=== PATIENT | male | born 1935 | race Caucasian/White ===

== ENCOUNTER 2017-01-27 22:20 | Emergency (ER) | payer MEDICAID ==
[2017-01-27 22:37] VITALS: RESP 16
[2017-01-27 23:22] LABS: BASO % 0.4 % (0.0-2.0); EOS # 0.3 K/uL (0.0-0.7); EOS % 2.8 % (0.0-4.0); HEMATOCRIT 44.6 % (35.0-51.0); LYMPH # 2.6 K/uL (1.0-4.3); LYMPH % 23.1 % (20.0-40.0); MEAN CELL VOLUME 87.8 fl (80.0-94.0); MEAN PLATELET VOLUME 8.8 fl (7.2-11.7); MONO # 0.8 K/uL (0.0-0.8); NEUT # 7.5 K/uL (1.8-7.0); NEUT % 66.7 % (50.0-75.0); NRBC % 0.1 % (0.0-0.0); WHITE BLOOD COUNT 11.2 K/uL (4.8-10.8)
[2017-01-27 23:29] LABS: BLOOD UREA NITROGEN 13 mg/dl (9-20); CALCIUM 9.5 mg/dL (8.4-10.2); CARBON DIOXIDE 29 mmol/L (22-30); CHLORIDE 98 mmol/L (98-107); GFR AFRICAN-AMERICAN > 60; GLUCOSE,RANDOM 185 mg/dL (75-110); POTASSIUM 3.9 MMOL/L (3.6-5.0); SODIUM 140 mmol/l (132-148)
--- NOTE | 2017-01-28 00:34 | ED PDOC ---
Lower Extremity Pain/Injury Time Seen by Provider: 01/27/17 22:41 Chief Complaint (Nursing): Lower Extremity Problem/Injury Chief Complaint (Provider): right sided leg swelling History Per: Patient History/Exam Limitations: no limitations Onset/Duration Of Symptoms: Days Current Symptoms Are (Timing): Still Present Additional Complaint(s): 81yo male presents to the ED with c/o right sided leg swelling for 1 week. Patient reports he experiences occasional leg swelling that comes and goes, but this time it's persistent. Denies numbness, weakness of leg. No chest pain or SOB. Past Medical History Reviewed: Historical Data, Nursing Documentation, Vital Signs Vital Signs: Last Vital Signs Temp 98.2 F 01/27/17 22:33 Pulse 80 01/27/17 22:33 Resp 16 01/27/17 22:33 BP 157/87 H 01/27/17 22:33 Pulse Ox 94 L 01/27/17 22:33 - Medical History PMH: Arthritis, Diabetes (type II), HTN Denies: Chronic Kidney Disease - Surgical History Surgical History: No Surg Hx - Family History Family History: States: No Known Family Hx - Home Medications Home Medications: Ambulatory Orders Medication Instructions Recorded Acetaminophen/Hydrocodone Bi 1 tab PO QID PRN #14 tab 07/25/16 [Vicodin 300 mg-5 mg] Clindamycin [Cleocin] 300 mg PO TID 10 Days 01/28/17 - Allergies Allergies/Adverse Reactions: Allergies Allergy/AdvReac Type Severity Reaction Status Date / Time No Known Allergies Allergy Verified 01/27/17 22:33 Review of Systems ROS Statement: Except As Marked, All Systems Reviewed And Found Negative Cardiovascular: Positive for: Other (right sided leg swelling ). Negative for: Chest Pain Respiratory: Negative for: Shortness of Breath Neurological: Negative for: Weakness, Numbness Physical Exam - Reviewed Nursing Documentation Reviewed: Yes Vital Signs Reviewed: Yes - Physical Exam Appears: Positive for: Well, No Acute Distress Head Exam: Positive for: ATRAUMATIC, NORMAL INSPECTION, NORMOCEPHALIC Skin: Positive for: Normal Color, Warm, Dry Eye Exam: Positive for: Normal appearance, EOMI, PERRL ENT: Positive for: Normal ENT Inspection Neck: Positive for: Normal, Painless ROM, Supple Cardiovascular/Chest: Positive for: Regular Rate, Rhythm. Negative for: Murmur , Tachycardia Respiratory: Positive for: Normal Breath Sounds. Negative for: Wheezing, Respiratory Distress Gastrointestinal/Abdominal: Positive for: Normal Exam, Bowel Sounds, Soft. Negative for: Tenderness Back: Positive for: Normal Inspection. Negative for: L CVA Tenderness, R CVA Tenderness Extremity: Positive for: Normal ROM, Other (right leg edematous and erythematous and swollen, distal pulses intact ). Negative for: Deformity Neurologic/Psych: Positive for: Alert, Oriented. Negative for: Motor/Sensory Deficits - Laboratory Results Result Diagrams: 01/27/17 23:14 01/27/17 23:14 - ECG O2 Sat by Pulse Oximetry: 94 Medical Decision Making Medical Decision Makin: Impression: cellulitis vs. DVT Plan: Labs US duplex RLE reassess 0038: US duplex RLE impression: 1. No evidence of DVT within RIGHT lower extremity. 0107: Will prescribe antibiotics. Family members state they will check with Dr. Leiva in the morning to make sure patient is not allergic. They report patient has many allergies to antibiotics. Scribe Attestation: Documented by Rosalie Bruno acting as a scribe for Skip Fried MD. Provider Scribe Attestation: All medical record entries made by the Scribe were at my direction and personally dictated by me. I have reviewed the chart and agree that the record accurately reflects my personal performance of the history, physical exam, medical decision making, and the department course for this patient. I have also personally directed, reviewed, and agree with the discharge instructions and disposition. Disposition - Clinical Impression Clinical Impression: Cellulitis - Patient ED Disposition Is Patient to be Admitted: No - Disposition Referrals: Monika Leiva MD [Primary Care Provider] - Disposition: Routine/Home Disposition Time: 01:07 Condition: IMPROVED Prescriptions: Clindamycin [Cleocin] 300 mg PO TID 10 Days Instructions: Cellulitis (ED)
[2017-01-28 01:14] VITALS: BP 135/80; PULSE 75; TEMP 98.1
[2017-01-28 01:49] LABS: PARTIAL THROMBOPLASTIN TIME 26.8 SECONDS (23.3-32.5)
[2017-01-28 03:08] VITALS: O2SAT 94
--- NOTE | 2017-01-28 11:19 | US ---
Right lower extremity venous Doppler dated 01/28/2017. History: Right leg swelling. Rule out DVT. Duplex interrogation of the deep veins right lower extremity performed. No prior study available for comparison Findings: Visualized deep veins right lower extremity exhibit normal flow, compressibility augmentation without evidence of DVT. There is subcutaneous edema within soft tissues of the right ankle and right calf. Enlarged right inguinal lymph node measuring 5.5 x 4.1 x 1.5 cm. . Impression: No evidence of DVT within the visualized deep veins right lower extremity. Mild subcutaneous edema within the soft tissues overlying the right ankle and right calf. Enlarged right inguinal lymph node.
== END 2017-01-28 01:19 | disposition home or self-care (01) ==
LOC: H.ER 22:20
DX: L03.116 Cellulitis of left lower limb (principal); E11.9 Type 2 diabetes mellitus without complications; I10 Essential (primary) hypertension

== ENCOUNTER 2017-11-27 11:34 | Emergency (ER) | payer MEDICAID ==
[2017-11-27 12:12] VITALS: RESP 19
[2017-11-27] MEDS ORDERED: Sodium Chloride 0.9% 1,000 ML IV STA (12:17)
[2017-11-27 12:36] LABS: BASO # 0.1 K/uL (0.0-0.2); BASO % 0.7 % (0.0-2.0); EOS # 0.1 K/uL (0.0-0.7); EOS % 1.1 % (0.0-4.0); HEMOGLOBIN 13.5 g/dL (12.0-18.0); LYMPH # 1.6 K/uL (1.0-4.3); LYMPH % 15.6 % (20.0-40.0); MEAN CELL VOLUME 87.9 fl (80.0-94.0); MEAN PLATELET VOLUME 8.1 fl (7.2-11.7); MONO # 0.8 K/uL (0.0-0.8); MONO % 7.9 % (0.0-10.0); NEUT # 7.5 K/uL (1.8-7.0); NEUT % 74.7 % (50.0-75.0); NRBC % 0.2 % (0.0-0.0); RBC 4.64 Mil/uL (4.40-5.90); RED CELL DISTRIBUTION WIDTH 15.6 % (11.5-14.5)
--- NOTE | 2017-11-27 12:39 | ED PDOC ---
HPI: Abdomen Time Seen by Provider: 11/27/17 12:03 Chief Complaint (Nursing): GI Problem Chief Complaint (Provider): Constipation History Per: Patient History/Exam Limitations: no limitations Onset/Duration Of Symptoms: Days (x4) Outside of [place] travel?: Yes Current Symptoms Are (Timing): Still Present Context: Travel Additional Complaint(s): Irwin Liriano is an 82 year old male with a history of diabetes and prostate disease that presents to the ED with a chief complaint of of not having a bowel movement for the past four days. Patient reports that he spent about 6 months in [place] and just returned to the [place] a [place] days ago. Patient's abdomen is distended, and he states that defecating is painful and hard. He reports that he occasionally takes OTC medication for constipation. Patient denies any fevers , chills, burning dysuria, or difficulty urinating, though his son states that patient's urine is foul-smelling. Past Medical History Reviewed: Historical Data, Nursing Documentation, Vital Signs Vital Signs: Last Vital Signs Temp 97 F L 11/27/17 12:03 Pulse 93 H 11/27/17 12:03 Resp 19 11/27/17 12:03 BP 157/77 H 11/27/17 12:03 Pulse Ox 96 11/27/17 12:43 - Medical History PMH: Arthritis, Diabetes (type II), HTN Denies: Chronic Kidney Disease Other PMH: prostate disease - Surgical History Other surgeries: prostatectomy x10 years ago - Family History Family History: States: Unknown Family Hx - Home Medications Home Medications: Ambulatory Orders Medication Instructions Recorded Acetaminophen/Hydrocodone Bi 1 tab PO QID PRN #14 tab 07/25/16 [Vicodin 300 mg-5 mg] Clindamycin [Cleocin] 300 mg PO TID 10 Days cap 01/28/17 Ciprofloxacin HCl [Cipro] 250 mg PO BID #14 tab 11/27/17 Polyethylene Glycol 3350 [Miralax] 17 g PO DAILY #14 packet 11/27/17 - Allergies Allergies/Adverse Reactions: Allergies Allergy/AdvReac Type Severity Reaction Status Date / Time No Known Allergies Allergy Verified 01/27/17 22:33 Review of Systems Constitutional: Negative for: Fever, Chills Gastrointestinal: Positive for: Abdominal Pain (distended abdomen), Constipation , Other (Painful defecation) Genitourinary Male: Negative for: Dysuria Musculoskeletal: Negative for: Back Pain Physical Exam - Reviewed Nursing Documentation Reviewed: Yes Vital Signs Reviewed: Yes - Physical Exam Appears: Positive for: Non-toxic, No Acute Distress Head Exam: Positive for: ATRAUMATIC, NORMOCEPHALIC Skin: Positive for: Normal Color, Warm Eye Exam: Positive for: Normal appearance, EOMI, PERRL ENT: Positive for: Normal ENT Inspection, Other (mucosa slightly dry) Cardiovascular/Chest: Positive for: Regular Rate, Rhythm, Murmur (3/6 systolic murmur) Respiratory: Positive for: Normal Breath Sounds. Negative for: Wheezing Gastrointestinal/Abdominal: Positive for: Normal Exam, Soft, Tenderness (Mild TTP in LLQ), Distended (mild) Back: Positive for: Normal Inspection. Negative for: L CVA Tenderness, R CVA Tenderness Extremity: Positive for: Normal ROM. Negative for: Pedal Edema, Swelling Neurologic/Psych: Positive for: Alert, Oriented. Negative for: Motor/Sensory Deficits - Laboratory Results Result Diagrams: 11/27/17 12:20 11/27/17 12:20 - ECG O2 Sat by Pulse Oximetry: 96 (RA) Pulse Ox Interpretation: Normal - Radiology X-Ray: Viewed By Me, Read By Radiologist X-Ray Interpretation: No Acute Disease, Cardiomegaly Medical Decision Making Medical Decision Making: Impression: Choric Constipation with acute inability to defecate, r/o diverticulosis and diverticulitis Plan: * X-Ray Obstructive Series * EKG * CMP * CBC * Urine dip * NaCl 1000 mLs at 125 mLs/hr * Reevaluation Scribe Attestation: Documented by Jennifer Boateng, acting as a scribe for Ivette Ga MD. Provider Scribe Attestation: All medical record entries made by the Scribe were at my direction and personally dictated by me. I have reviewed the chart and agree that the record accurately reflects my personal performance of the history, physical exam, medical decision making, and the department course for this patient. I have also personally directed, reviewed, and agree with the discharge instructions and disposition. 2.00a - patient has 2 BMs while in the ER. labs normal except for urine c/w UTI Disposition - Clinical Impression Clinical Impression: Constipation, UTI (urinary tract infection) - Patient ED Disposition Is Patient to be Admitted: No Doctor Will See Patient In The: Office Counseled Patient/Family Regarding: Diagnosis, Need For Followup, Rx Given - Disposition Referrals: Jeff Huggins MD [Primary Care Provider] - Disposition: Routine/Home Disposition Time: 14:00 Condition: IMPROVED Prescriptions: Ciprofloxacin HCl [Cipro] 250 mg PO BID #14 tab Polyethylene Glycol 3350 [Miralax] 17 g PO DAILY #14 packet Instructions: Urinary Tract Infection in Men (ED), Constipation (ED), High Fiber Diet (ED) Forms: [facility] (Frisian) - POA Present On Arrival: None
[2017-11-27 13:50] LABS: ALB/GLOB RATIO 0.8 (1.0-2.1); ALBUMIN 3.5 g/dL (3.5-5.0); ALT/SGPT 32 U/L (21-72); AST/SGOT 35 U/L (17-59); BLOOD UREA NITROGEN 15 mg/dl (9-20); CALCIUM 9.5 mg/dL (8.4-10.2); GFR AFRICAN-AMERICAN > 60; GFR NON-AFRICAN AMERICAN > 60
--- NOTE | 2017-11-27 14:17 | RAD ---
PROCEDURE: Radiographs of the chest and abdomen (obstructive series) HISTORY: h/o constipation; no BM x 4 days COMPARISON: No comparison made with chest radiograph 07/25/2016 the TECHNIQUE: AP radiograph of the chest, with upright and supine radiographs of the abdomen. FINDINGS: CHEST: Mild bibasilar atelectasis [id number]. . The interstitial markings are somewhat increased and coarsened as well; rule out sequela of reactive/inflammatory airway disease or viral illness. Heart is enlarged. Aorta ectatic and uncoiled. ABDOMEN AND PELVIS: No evidence of acute mechanical bowel obstruction. Air is seen throughout the distal ascending, and transverse colon. No gross free intraperitoneal air seen under the diaphragmatic surfaces. Multilevel degenerative spondylosis of the thoracic and lumbar spine latter more significant than the former. There is also a mild dextroscoliosis centered in the mid lumbar region. The IMPRESSION: Mild bibasilar atelectasis [id number]. . The interstitial markings are somewhat increased and coarsened as well; rule out sequela of reactive/inflammatory airway disease or viral illness. Cardiomegaly. No evidence of acute mechanical bowel obstruction.
[2017-11-27 14:29] VITALS: BP 132/74; PULSE 82; TEMP 98.6; O2SAT 100
--- NOTE | 2017-11-28 12:50 | CARD ---
APPROVED REPORT EKG Measurement Heart [id number] OK [id number] <Conclusion> Normal sinus rhythm Possible Left atrial enlargement Right bundle branch block Abnormal ECG
== END 2017-11-27 15:00 | disposition home or self-care (01) ==
LOC: SUPCPDRO 11:34 → H.ER 11:34
DX: K59.00 Constipation, unspecified (principal); N39.0 Urinary tract infection, site not specified; I10 Essential (primary) hypertension; E11.9 Type 2 diabetes mellitus without complications
CPT/HCPCS: 74022; 80053; 82948; 85025; 87086; 87181; 93005; 99284; J7040

== ENCOUNTER 2017-12-18 14:27 | Inpatient (IN) | payer MEDICAID ==
[2017-12-18 14:52] VITALS: BMI 30.4
[2017-12-18] MEDS ORDERED: Lidocaine 5% Patch TD STA (16:35)
--- NOTE | 2017-12-18 16:45 | ED PDOC ---
"HPI: Back Time Seen by Provider: 12/18/17 15:45 Chief Complaint (Nursing): Back Pain Chief Complaint (Provider): Back Pain History Per: Patient History/Exam Limitations: no limitations Onset/Duration Of Symptoms: Days (21 days ago) Current Symptoms Are (Timing): Still Present Additional Complaint(s): 82 yo male with a history of prostate cancer, hypertension, and diabetes, presents to the ED complaining of midline, center back pain, onset of 21 days ago. According to the patient's son, his father sustained a fall about 3 weeks ago and promptly went to see their primary care doctor. X-rays were ordered, which demonstrated an old T-12 compression fracture. A shot of toradol, coupled with ibuprofen and Naprosyn were given, but the pain still persisted. Patient denies any numbness or weakness in the legs, bowel/urine incontinence or retention, and fever. Past Medical History Reviewed: Historical Data, Nursing Documentation, Vital Signs Vital Signs: Last Vital Signs Temp 98.9 F 12/18/17 14:53 Pulse 82 12/18/17 14:53 Resp 16 12/18/17 14:53 BP 163/90 H 12/18/17 14:53 Pulse Ox 97 12/18/17 14:53 - Medical History PMH: Arthritis, Diabetes (type II), HTN Denies: Chronic Kidney Disease Other PMH: prostate cancer - Surgical History Other surgeries: prostate surgery - Family History Family History: States: Unknown Family Hx - Living Arrangements Living Arrangements: With Family - Social History Current smoker - smoking cessation education provided: No Ex-Smoker (has not smoked in the last 12 months): No Alcohol: None Drugs: Denies - Home Medications Home Medications: Ambulatory Orders Medication Instructions Recorded Acetaminophen/Hydrocodone Bi 1 tab PO QID PRN #14 tab 07/25/16 [Vicodin 300 mg-5 mg] Clindamycin [Cleocin] 300 mg PO TID 10 Days cap 01/28/17 Ciprofloxacin HCl [Cipro] 250 mg PO BID #14 tab 11/27/17 Polyethylene Glycol 3350 [Miralax] 17 g PO DAILY #14 packet 11/27/17 - Allergies Allergies/Adverse Reactions: Allergies Allergy/AdvReac Type Severity Reaction Status Date / Time No Known Allergies Allergy Verified 01/27/17 22:33 Review of Systems ROS Statement: Except As Marked, All Systems Reviewed And Found Negative Constitutional: Negative for: Fever Gastrointestinal: Negative for: Diarrhea, Constipation Genitourinary Male: Negative for: Dysuria, Frequency, Incontinence Musculoskeletal: Positive for: Back Pain (midline, center) Neurological: Negative for: Weakness, Numbness Physical Exam - Reviewed Nursing Documentation Reviewed: Yes Vital Signs Reviewed: Yes - Physical Exam Appears: Positive for: Non-toxic, In Acute Distress Head Exam: Positive for: ATRAUMATIC, NORMOCEPHALIC Skin: Positive for: Warm, Dry Eye Exam: Positive for: EOMI, PERRL ENT: Negative for: Pharyngeal Erythema, Tonsillar Exudate Neck: Positive for: Painless ROM, Supple Cardiovascular/Chest: Positive for: Regular Rate, Rhythm, Chest Non Tender. Negative for: Murmur Respiratory: Positive for: Normal Breath Sounds. Negative for: Wheezing Gastrointestinal/Abdominal: Positive for: Soft. Negative for: Tenderness Back: Positive for: Vertebral Tenderness (midline tenderness at lower thoracic vertebrae with bilateral paraspinal spasm), Other. Negative for: L CVA Tenderness, R CVA Tenderness Extremity: Positive for: Normal ROM. Negative for: Deformity Lymphatic: Negative for: Adenopathy Neurologic/Psych: Positive for: Alert, Other (negative bilateral straight leg raise, 5/5 strenght in bilateral lower extremities). Negative for: Motor/ Sensory Deficits - Laboratory Results Result Diagrams: 12/19/17 07:36 12/19/17 07:36 - ECG O2 Sat by Pulse Oximetry: 97 (RA) Pulse Ox Interpretation: Normal Medical Decision Making Medical Decision Making: Time: --16:33 Impression: --Back Pain Differential: --Back Strain vs. T-12 fracture vs. abdominal aortic aneurysm vs. renal colic Plan: --Blood Work --CT ABD & Pelvis w/o contrast --CT Thoracic Spine w/o contrast --ECG --Labs --Troponin I --Lidocaine 1 ea TD --Morphine 2mg IVP --PTT --PT --Erythrocye Sedimentation rate Reassess 1939 EXAM: CT Thoracic Spine Without Intravenous Contrast EXAM DATE/TIME: 12/18/2017 4:34 PM CLINICAL HISTORY: 82 years old, male; Pain; Pain in thoracic spine; Additional info: Severe back pain h/o t12 compression fracture TECHNIQUE: Axial computed tomography images of the thoracic spine without intravenous contrast. All CT scans at this facility use one or more dose reduction techniques, viz.: automated exposure control; ma/kV adjustment per patient size (including targeted exams where dose is matched to indication; i.e. head); or iterative reconstruction technique. Coronal and sagittal reformatted images were created and reviewed. COMPARISON: No relevant prior studies available. FINDINGS: VERTEBRAE: 50% compression fracture of T12. This is suspected to be recent ( acute or subacute) in nature. There is a small amount of adjacent paravertebral hemorrhage, and associated bony fragmentation, with the fracture lines remaining evident. There is associated vacuum phenomenon. There is resultant mild vertebral retropulsion, causing mild bony spinal canal stenosis. No involvement of the posterior elements of T12. No additional acute fractures seen. No evidence of significant vertebral subluxation. DISCS/SPINAL CANAL/NEURAL FORAMINA: Moderate to severe multilevel degenerative disc disease. SOFT TISSUES: No acute abnormality of the visualized soft tissues is seen. IMPRESSION: - 50% compression fracture of T12, suspected to be recent (acute or subacute) in nature. There is associated mild vertebral retropulsion, causing mild bony spinal canal stenosis. - See above for remaining findings. 1950 EXAM: CT Abdomen and Pelvis Without Intravenous Contrast EXAM DATE/TIME: 12/18/2017 4:33 PM CLINICAL HISTORY: 82 years old, male; Pain; Other: Back pain TECHNIQUE: Axial computed tomography images of the abdomen and pelvis without intravenous contrast. All CT scans at this facility use one or more dose reduction techniques, viz.: automated exposure control; ma/kV adjustment per patient size (including targeted exams where dose is matched to indication; i.e. head); or iterative reconstruction technique. Coronal and sagittal reformatted images were created and reviewed. COMPARISON: No relevant prior studies available. FINDINGS: LOWER THORAX: Small pericardial effusion. Mild cardiomegaly. ABDOMEN: LIVER: No acute abnormality of the liver identified. GALLBLADDER AND BILE DUCTS: No CT evidence of acute cholecystitis. No evidence of significant biliary ductal dilatation. PANCREAS: No CT evidence of acute pancreatitis. SPLEEN: No acute abnormality of the spleen identified. ADRENALS: Adrenal glands appear mildly enlarged bilaterally and are low in density, but no focal, measurable masses or nodules are seen. Findings are unlikely of clinical significance. KIDNEYS AND URETERS: Low density lesion in the left kidney, most likely a cyst. This measures 1.2 cm. No evidence of renal stones, ureteral stones, or significant hydroureteronephrosis. STOMACH AND BOWEL: Retained stool noted throughout the colon. Bowel is otherwise unremarkable in appearance. No evidence of bowel obstruction. APPENDIX: Appendix is seen, and is within normal limits in appearance. PELVIS: [facility] [place] | Final Radiology Report CONFIDENTIALITY STATEMENT This report is intended only for use by the referring physician, and only in accordance with law. If you received this in error, call [phone]. Page 2 of 2 BLADDER: Diffuse, moderate bladder wall thickening. Mild infiltration of the fat adjacent to the bladder. In an acute setting, the findings are suspicious for cystitis. Soft tissue at the bladder base, which is contiguous with the prostate gland. REPRODUCTIVE: Prostate gland is enlarged. ABDOMEN and PELVIS: INTRAPERITONEAL SPACE: No evidence of free intraperitoneal air or fluid. RETROPERITONEAL SPACE: No evidence of retroperitoneal hemorrhage. BONES/JOINTS: No acute fractures or other acute bony abnormality noted. SOFT TISSUES: No acute abnormality of the visualized soft tissues is seen. VASCULATURE: No evidence of abdominal aortic aneurysm. No evidence of periaortic hemorrhage. LYMPH NODES: No evidence of diffuse lymphadenopathy. IMPRESSION: - Bladder findings suspicious for cystitis. - Soft tissue at the bladder base. This could represent indentation of the bladder by the prostate gland, which is enlarged, however, in a patient of this age, a mass at the bladder base is difficult to exclude. Recommend correlation with urinalysis results and further workup as indicated clinically. - See above for remaining findings. 1957 patient is currently still in pain with some mild desaturation after a dose of morphine. Patient needs hospitalization for compression fracture with spinal stenosis and intractable back pain. Scribe Attestation: Documented by Jose Cralos Adams acting as a scribe for Heather Middleton MD. Provider Attestation: All medical record entries made by the Scribe were at my direction and personally dictated by me. I have reviewed the chart and agree that the record accurately reflects my personal performance of the history, physical exam, medical decision making, and the department course for this patient. I have also personally directed, reviewed, and agree with the discharge instructions and disposition. Disposition - Clinical Impression Clinical Impression: Intractable back pain, Compression fracture Counseled Patient/Family Regarding: Studies Performed, Diagnosis - Disposition Disposition Time: 19:00 Condition: FAIR - Pt Status Changed To: Hospital Disposition Of: Inpatient - Admit Certification Admit to Inpatient:: After my assessment, the patient will require hospitalization for at least two midnights. This is because of the severity of symptoms shown, intensity of services needed, and/or the medical risk in this patient being treated as an outpatient. - POA Present On Arrival: Falls Or Trauma"
[2017-12-18] MEDS ORDERED: Lidocaine 5% Patch TD ONE (16:55)
[2017-12-18] MEDS ORDERED: Morphine 4 MG/ML VIAL ONE (16:57)
[2017-12-18 17:23] LABS: BASO % 0.3 % (0.0-2.0); EOS # 0.3 K/uL (0.0-0.7); LYMPH # 2.3 K/uL (1.0-4.3); LYMPH % 23.4 % (20.0-40.0); MEAN CELL VOLUME 87.1 fl (80.0-94.0); MEAN CORPUSCULAR HEMOGLOBIN 28.3 pg (27.0-31.0); MEAN CORPUSCULAR HGB CONC 32.5 g/dL (33.0-37.0); MEAN PLATELET VOLUME 8.1 fl (7.2-11.7); MONO # 0.9 K/uL (0.0-0.8); MONO % 9.8 % (0.0-10.0); NEUT # 6.1 K/uL (1.8-7.0); NEUT % 63.5 % (50.0-75.0); NRBC % 0.2 % (0.0-0.0); RBC 4.93 Mil/uL (4.40-5.90); RED CELL DISTRIBUTION WIDTH 14.9 % (11.5-14.5); WHITE BLOOD COUNT 9.6 K/uL (4.8-10.8)
[2017-12-18 17:40] LABS: PARTIAL THROMBOPLASTIN TIME 38.1 Seconds (25.6-37.1); PROTHROMBIN TIME 11.6 Seconds (9.8-13.1)
[2017-12-18 18:16] LABS: ALB/GLOB RATIO 0.8 (1.0-2.1); ALBUMIN 3.9 g/dL (3.5-5.0); ALT/SGPT 28 U/L (21-72); AST/SGOT 24 U/L (17-59); BLOOD UREA NITROGEN 15 mg/dl (9-20); CALCIUM 9.4 mg/dL (8.4-10.2); GFR AFRICAN-AMERICAN > 60; GFR NON-AFRICAN AMERICAN > 60
[2017-12-18] MEDS ORDERED: Morphine 4 MG/ML VIAL IVP STA (19:26)
--- NOTE | 2017-12-18 19:41 | CT ---
EXAM: CT Thoracic Spine Without Intravenous Contrast EXAM DATE/TIME: 12/18/2017 4:34 PM CLINICAL HISTORY: 82 years old, male; Pain; Pain in thoracic spine; Additional info: Severe back pain h/o t12 compression fracture TECHNIQUE: Axial computed tomography images of the thoracic spine without intravenous contrast. All CT scans at this facility use one or more dose reduction techniques, viz.: automated exposure control; ma/kV adjustment per patient size (including targeted exams where dose is matched to indication; i.e. head); or iterative reconstruction technique. Coronal and sagittal reformatted images were created and reviewed. COMPARISON: No relevant prior studies available. FINDINGS: VERTEBRAE: 50% compression fracture of T12. This is suspected to be recent (acute or subacute) in nature. There is a small amount of adjacent paravertebral hemorrhage, and associated bony fragmentation, with the fracture lines remaining evident. There is associated vacuum phenomenon. There is resultant mild vertebral retropulsion, causing mild bony spinal canal stenosis. No involvement of the posterior elements of T12. No additional acute fractures seen. No evidence of significant vertebral subluxation. DISCS/SPINAL CANAL/NEURAL FORAMINA: Moderate to severe multilevel degenerative disc disease. SOFT TISSUES: No acute abnormality of the visualized soft tissues is seen. IMPRESSION: - 50% compression fracture of T12, suspected to be recent (acute or subacute) in nature. There is associated mild vertebral retropulsion, causing mild bony spinal canal stenosis. - See above for remaining findings.
--- NOTE | 2017-12-18 19:51 | CT ---
EXAM: CT Abdomen and Pelvis Without Intravenous Contrast EXAM DATE/TIME: 12/18/2017 4:33 PM CLINICAL HISTORY: 82 years old, male; Pain; Other: Back pain TECHNIQUE: Axial computed tomography images of the abdomen and pelvis without intravenous contrast. All CT scans at this facility use one or more dose reduction techniques, viz.: automated exposure control; ma/kV adjustment per patient size (including targeted exams where dose is matched to indication; i.e. head); or iterative reconstruction technique. Coronal and sagittal reformatted images were created and reviewed. COMPARISON: No relevant prior studies available. FINDINGS: LOWER THORAX: Small pericardial effusion. Mild cardiomegaly. ABDOMEN: LIVER: No acute abnormality of the liver identified. GALLBLADDER AND BILE DUCTS: No CT evidence of acute cholecystitis. No evidence of significant biliary ductal dilatation. PANCREAS: No CT evidence of acute pancreatitis. SPLEEN: No acute abnormality of the spleen identified. ADRENALS: Adrenal glands appear mildly enlarged bilaterally and are low in density, but no focal, measurable masses or nodules are seen. Findings are unlikely of clinical significance. KIDNEYS AND URETERS: Low density lesion in the left kidney, most likely a cyst. This measures 1.2 cm. No evidence of renal stones, ureteral stones, or significant hydroureteronephrosis. STOMACH AND BOWEL: Retained stool noted throughout the colon. Bowel is otherwise unremarkable in appearance. No evidence of bowel obstruction. APPENDIX: Appendix is seen, and is within normal limits in appearance. PELVIS: BLADDER: Diffuse, moderate bladder wall thickening. Mild infiltration of the fat adjacent to the bladder. In an acute setting, the findings are suspicious for cystitis. Soft tissue at the bladder base, which is contiguous with the prostate gland. REPRODUCTIVE: Prostate gland is enlarged. ABDOMEN and PELVIS: INTRAPERITONEAL SPACE: No evidence of free intraperitoneal air or fluid. RETROPERITONEAL SPACE: No evidence of retroperitoneal hemorrhage. BONES/JOINTS: No acute fractures or other acute bony abnormality noted. SOFT TISSUES: No acute abnormality of the visualized soft tissues is seen. VASCULATURE: No evidence of abdominal aortic aneurysm. No evidence of periaortic hemorrhage. LYMPH NODES: No evidence of diffuse lymphadenopathy. IMPRESSION: - Bladder findings suspicious for cystitis. - Soft tissue at the bladder base. This could represent indentation of the bladder by the prostate gland, which is enlarged, however, in a patient of this age, a mass at the bladder base is difficult to exclude. Recommend correlation with urinalysis results and further workup as indicated clinically. - See above for remaining findings.
[2017-12-19 08:10] LABS: BASO % 0.2 % (0.0-2.0); EOS # 0.3 K/uL (0.0-0.7); EOS % 3.7 % (0.0-4.0); HEMOGLOBIN 13.5 g/dL (12.0-18.0); LYMPH # 2.4 K/uL (1.0-4.3); LYMPH % 26.5 % (20.0-40.0); MEAN CELL VOLUME 86.7 fl (80.0-94.0); MEAN CORPUSCULAR HEMOGLOBIN 28.7 pg (27.0-31.0); MEAN CORPUSCULAR HGB CONC 33.2 g/dL (33.0-37.0); MEAN PLATELET VOLUME 8.1 fl (7.2-11.7); MONO # 1.1 K/uL (0.0-0.8); MONO % 12.7 % (0.0-10.0); NEUT # 5.1 K/uL (1.8-7.0); NEUT % 56.9 % (50.0-75.0); NRBC % 0.1 % (0.0-0.0); RBC 4.71 Mil/uL (4.40-5.90); RED CELL DISTRIBUTION WIDTH 15.2 % (11.5-14.5); WHITE BLOOD COUNT 8.9 K/uL (4.8-10.8)
[2017-12-19 08:27] LABS: ALB/GLOB RATIO 0.8 (1.0-2.1); ALBUMIN 3.6 g/dL (3.5-5.0); ALT/SGPT 29 U/L (21-72); AST/SGOT 22 U/L (17-59); BLOOD UREA NITROGEN 15 mg/dl (9-20); CALCIUM 9.5 mg/dL (8.4-10.2); GFR AFRICAN-AMERICAN > 60; GFR NON-AFRICAN AMERICAN > 60
[2017-12-19 09:04] LABS: SQUAMOUS EPITHIAL 1 /hpf (0-5); URINE BACTERIA MANY (<OCC); URINE BILIRUBIN NEGATIVE (NEGATIVE); URINE BLOOD MODERATE (NEGATIVE); URINE CLARITY TURBID (Clear); URINE COLOR YELLOW (YELLOW); URINE GLUCOSE (UA) NEG (Normal); URINE LEUKOCYTE ESTERASE LARGE Leu/uL (Negative); URINE NITRATE NEGATIVE (NEGATIVE); URINE PROTEIN 30 mg/dL (NEGATIVE); URINE UROBILINOGEN 0.2-1.0 mg/dL (0.2-1.0)
--- NOTE | 2017-12-19 12:07 | CP.PCM.CON ---
History of Present Illness - History of Present Illness History of Present Illness: SPINE CONSULT Pt seen and examined. Full consult dictated. Brace ordered. MRI ordered. Past Patient History - Infectious Disease Hx of Infectious Diseases: None - Past Medical History & Family History Past Medical History?: Yes - Past Social History Smoking Status: Never Smoked - CARDIAC Hx Hypertension: Yes - PULMONARY Hx Respiratory Disorders: No - NEUROLOGICAL Hx Neurological Disorder: No - HEENT Hx HEENT Problems: Yes Hx Cataracts: Yes (porsha. removed) - RENAL Hx Chronic Kidney Disease: No - ENDOCRINE/METABOLIC Hx Endocrine Disorders: Yes Hx Diabetes Mellitus Type 2: Yes Other/Comment: Neuropathy - HEMATOLOGICAL/ONCOLOGICAL Hx Blood Disorders: No - INTEGUMENTARY Hx Dermatological Problems: No - MUSCULOSKELETAL/RHEUMATOLOGICAL Hx Falls: Yes - GASTROINTESTINAL Hx Gastrointestinal Disorders: No - GENITOURINARY/GYNECOLOGICAL Hx Genitourinary Disorders: Yes Hx Prostate Cancer: Yes (Prostectomy) - PSYCHIATRIC Hx Substance Use: No - SURGICAL HISTORY Hx Surgeries: Yes Hx Cataract Extraction: Yes (bilateral) Other/Comment: Prostectomy - ANESTHESIA Hx Anesthesia: No Hx Anesthesia Reactions: No Meds Allergies/Adverse Reactions: Allergies Allergy/AdvReac Type Severity Reaction Status Date / Time No Known Allergies Allergy Verified 01/27/17 22:33 - Medications Medications: Current Medications Acetaminophen (Tylenol 325mg Tab) 650 mg PO Q6 PRN PRN Reason: Pain, Mild (1-3) Heparin Sodium (Porcine) (Heparin) 5,000 units SC Q8 JONATHON PRN Reason: Protocol Last Admin: 12/19/17 09:47 Dose: 5,000 units Morphine Sulfate (Morphine) 1 mg IVP Q4 PRN PRN Reason: Pain, severe (8-10) Tamsulosin HCl (Flomax) 0.4 mg PO DAILY [facility] Last Admin: 12/19/17 09:47 Dose: 0.4 mg Tramadol HCl (Ultram) 50 mg PO Q6 PRN PRN Reason: Pain, moderate (4-7) Results - Vital Signs Recent Vital Signs: Last Vital Signs Temp 97.7 F 12/19/17 11:58 Pulse 72 12/19/17 11:58 Resp 19 12/19/17 11:58 BP 173/70 H 12/19/17 11:58 Pulse Ox 98 12/19/17 11:58 - Labs Result Diagrams: 12/19/17 07:36 12/19/17 07:36 Labs: Laboratory Results - last 24 hr 12/18/17 12/18/17 12/18/17 16:47 17:00 17:00 WBC 9.6 RBC 4.93 Hgb 14.0 Hct 42.9 MCV 87.1 MCH 28.3 MCHC 32.5 L RDW 14.9 H Plt Count 299 MPV 8.1 Neut % (Auto) 63.5 Lymph % (Auto) 23.4 [place] % (Auto) 9.8 Eos % (Auto) 3.0 Baso % (Auto) 0.3 Neut # (Auto) 6.1 Lymph # (Auto) 2.3 [place] # (Auto) 0.9 H Eos # (Auto) 0.3 Baso # (Auto) 0.0 ESR 87 H PT INR APTT Sodium 137 Potassium 4.3 Chloride 96 L Carbon Dioxide 28 Anion Gap 17 BUN 15 Creatinine 0.8 Est GFR ( Amer) > 60 Est GFR (Non-Af Amer) > 60 Random Glucose 148 H Calcium 9.4 Total Bilirubin 0.5 AST 24 ALT 28 Alkaline Phosphatase 176 H Troponin I < 0.0120 Total Protein 8.8 H Albumin 3.9 Globulin 4.9 H Albumin/Globulin Ratio 0.8 L Prostate Specific Ag TSH 3rd Generation Urine Color Urine Clarity Urine pH Ur Specific [place] Urine Protein Urine Glucose (UA) Urine Ketones Urine Blood Urine Nitrate Urine Bilirubin Urine Urobilinogen Ur Leukocyte Esterase Urine RBC (Auto) Urine Microscopic WBC Ur Squamous Epith Cells Urine Bacteria Blood Type B POSITIVE Blood Type Confirm Antibody Screen Negative BBK History Checked No verified bt 12/18/17 12/18/17 12/19/17 17:00 17:39 07:36 WBC 8.9 RBC 4.71 Hgb 13.5 Hct 40.9 MCV 86.7 MCH 28.7 MCHC 33.2 RDW 15.2 H Plt Count 299 MPV 8.1 Neut % (Auto) 56.9 Lymph % (Auto) 26.5 [place] % (Auto) 12.7 H Eos % (Auto) 3.7 Baso % (Auto) 0.2 Neut # (Auto) 5.1 Lymph # (Auto) 2.4 [place] # (Auto) 1.1 H Eos # (Auto) 0.3 Baso # (Auto) 0.0 ESR 101 H PT 11.6 INR 1.0 APTT 38.1 H Sodium Potassium Chloride Carbon Dioxide Anion Gap BUN Creatinine Est GFR ( Amer) Est GFR (Non-Af Amer) Random Glucose Calcium Total Bilirubin AST ALT Alkaline Phosphatase Troponin I Total Protein Albumin Globulin Albumin/Globulin Ratio Prostate Specific Ag TSH 3rd Generation Urine Color Urine Clarity Urine pH Ur Specific [place] Urine Protein Urine Glucose (UA) Urine Ketones Urine Blood Urine Nitrate Urine Bilirubin Urine Urobilinogen Ur Leukocyte Esterase Urine RBC (Auto) Urine Microscopic WBC Ur Squamous Epith Cells Urine Bacteria Blood Type Blood Type Confirm B POSITIVE Antibody Screen BBK History Checked 12/19/17 12/19/17 12/19/17 07:36 07:36 08:40 WBC RBC Hgb Hct MCV MCH MCHC RDW Plt Count MPV Neut % (Auto) Lymph % (Auto) [place] % (Auto) Eos % (Auto) Baso % (Auto) Neut # (Auto) Lymph # (Auto) [place] # (Auto) Eos # (Auto) Baso # (Auto) ESR PT INR APTT 36.6 Sodium 139 Potassium 4.4 Chloride 97 L Carbon Dioxide 31 H Anion Gap 15 BUN 15 Creatinine 0.9 Est GFR ( Amer) > 60 Est GFR (Non-Af Amer) > 60 Random Glucose 126 H Calcium 9.5 Total Bilirubin 0.5 AST 22 ALT 29 Alkaline Phosphatase 163 H Troponin I Total Protein 8.3 H Albumin 3.6 Globulin 4.7 H Albumin/Globulin Ratio 0.8 L Prostate Specific Ag 0.148 TSH 3rd Generation 1.81 Urine Color Yellow Urine Clarity Turbid Urine pH 6.0 Ur Specific [place] 1.008 Urine Protein 30 Urine Glucose (UA) Neg Urine Ketones Negative Urine Blood Moderate Urine Nitrate Negative Urine Bilirubin Negative Urine Urobilinogen 0.2-1.0 Ur Leukocyte Esterase Large Urine RBC (Auto) 47 H Urine Microscopic WBC 1566 H Ur Squamous Epith Cells 1 Urine Bacteria Many H Blood Type Blood Type Confirm Antibody Screen BBK History Checked
--- NOTE | 2017-12-19 13:48 | CON ---
DATE: 12/19/2017 REASON FOR CONSULTATION: Compression fracture of the spine. HISTORY OF PRESENT ILLNESS: The patient is an 82-year-old young gentleman who has had complaints of back pain, following fall 3 weeks ago. His son who helped translate and was present the entire time states that dad did not have complaints of pain prior this fall. He states the father, in spite of the pain, still been able to ambulate. The son states there has been no incontinence of bowel or bladder. PAST MEDICAL HISTORY: Significant for prostate cancer, hypertension, and diabetes. MEDICATIONS: As listed on the chart. ALLERGIES: NO KNOWN ALLERGIES. PAST SURGICAL HISTORY: According to the father through the son, he had a total prostatectomy done 10 years ago when he was diagnosed with a cancer. PHYSICAL EXAMINATION: EXTREMITIES: There is some tenderness to palpitation. He is able to move both lower extremity actively. His sensation is intact to light touch. He has good motor strength. No clonus or Babinski is noted. Distal pulses are intact. CAT scan reviewed, it shows a fracture of T12. It is read as having 50% compression, but I can still see the superior endplate above its vacuum phenomenon below that and if measured from there, it is only about a third compression. There seems to be some bridging osteophytes as well in the area. Certainly from the history, this seemed to be subacute fracture and that is approximately 3 weeks old. The natural history of this fractures would be that the first 3 to 4 weeks, they tend to remain painful but then as the bone starts to heal between the first month and second month, the pain level gradually subsides. Although, there is 30-40% compression, there is no disruption of the normal thoracolumbar kyphosis to lordosis transition. No obvious bony retropulsion either. At this point, no surgery is indicated. I think it would be a good idea to get an MRI to help determine the acuity of the fracture as well as just be certain everything else is okay given his history of cancer, although again if he had a total prostatectomy that should be an issue. We will order a lightweight extension brace for him to wear when out of bed and followup accordingly. Thank you for allowing me to participate in the care of your patient. Masood Demarco MD [facility] # [id number] MTDCol[place]
--- NOTE | 2017-12-19 21:49 | CARD ---
APPROVED REPORT EKG Measurement Heart [id number] <Conclusion> Normal sinus rhythm Possible Left atrial enlargement Left axis deviation Right bundle branch block Left ventricular hypertrophy Abnormal ECG
--- NOTE | 2017-12-19 22:31 | CP.PCM.HP ---
History of Present Illness - History of Present Illness History of Present Illness: The patient is an 82 year old male with a pmhx of prostate ca, HTN and DM who presented to the ED with c/o of back pain. The patient's son present at bedside states that the patient fell about 3 and a half weeks ago and has been having back pain after that. The patient denied any LOC, headache or chest pain. The patient did not have any urinary or bladder incontinence. States the pain is constant and severe 07/10, did not take anything for the pain. Per pt's son, after the fall, the patient came to the hospital and was treated for uti and sent home on antibiotics. Per the son, the patient is able to ambulate, but has a lot of pain when doing so and occasionally has to hold on to the son for support. In the ED, the patient was noted to have a T12 compression fracture on the CT scan. the pt was admitted for further management. Present on Admission - Present on Admission Any Indicators Present on Admission: No Review of Systems - Review of Systems All systems: reviewed and no additional remarkable complaints except (as states) - Constitutional Constitutional: As Per HPI - EENT Eyes: absent: Change in Vision, Loss of Vision - Cardiovascular Cardiovascular: As Per HPI. absent: Chest Pain, Palpitations - Respiratory Respiratory: As Per HPI. absent: Cough, Dyspnea - Gastrointestinal Gastrointestinal: Change in Stool Character, Cramping. absent: Abdominal Pain, Diarrhea, Fecal Incontinence, Nausea - Genitourinary Genitourinary: absent: Change in Urinary Stream, Difficulty Urinating, Hematuria , Freq UTI - Musculoskeletal Musculoskeletal: As Per HPI - Neurological Neurological: As Per HPI Past Patient History - Infectious Disease Hx of Infectious Diseases: None - Past Medical History & Family History Past Medical History?: Yes - Past Social History Alcohol: None Drugs: Denies - CARDIAC Hx Hypertension: Yes - PULMONARY Hx Respiratory Disorders: No - NEUROLOGICAL Hx Neurological Disorder: No - HEENT Hx HEENT Problems: Yes Hx Cataracts: Yes (porsha. removed) - RENAL Hx Chronic Kidney Disease: No - ENDOCRINE/METABOLIC Hx Endocrine Disorders: Yes Hx Diabetes Mellitus Type 2: Yes Other/Comment: Neuropathy - HEMATOLOGICAL/ONCOLOGICAL Hx Blood Disorders: No - INTEGUMENTARY Hx Dermatological Problems: No - MUSCULOSKELETAL/RHEUMATOLOGICAL Hx Arthritis: Yes - GASTROINTESTINAL Hx Gastrointestinal Disorders: No - GENITOURINARY/GYNECOLOGICAL Hx Genitourinary Disorders: Yes Hx Prostate Cancer: Yes (Prostectomy) - PSYCHIATRIC Hx Substance Use: No - SURGICAL HISTORY Hx Surgeries: Yes Hx Cataract Extraction: Yes (bilateral) Other/Comment: Prostectomy - ANESTHESIA Hx Anesthesia: No Hx Anesthesia Reactions: No Meds Allergies/Adverse Reactions: Allergies Allergy/AdvReac Type Severity Reaction Status Date / Time No Known Allergies Allergy Verified 01/27/17 22:33 Physical Exam - Constitutional Appears: Non-toxic, No Acute Distress - Head Exam Head Exam: ATRAUMATIC, NORMOCEPHALIC - Eye Exam Eye Exam: EOMI, Normal appearance Pupil Exam: NORMAL ACCOMODATION - ENT Exam ENT Exam: Mucous Membranes Moist, Normal Exam - Neck Exam Neck exam: Positive for: Full Rom, Normal Inspection - Respiratory Exam Respiratory Exam: Clear to Auscultation Bilateral, NORMAL BREATHING PATTERN - Cardiovascular Exam Cardiovascular Exam: REGULAR RHYTHM, +S1, +S2 - GI/Abdominal Exam GI & Abdominal Exam: Normal Bowel Sounds, Soft - Rectal Exam Rectal Exam: Deferred - Extremities Exam Extremities exam: Positive for: normal inspection, pedal pulses present. Negative for: pedal edema - Back Exam Back exam: NORMAL INSPECTION, tenderness (mid back) - Neurological Exam Neurological exam: Alert, Oriented x3 - Psychiatric Exam Psychiatric exam: Normal Affect, Normal Mood - Skin Skin Exam: Normal Color, Warm Results - Vital Signs Recent Vital Signs: Last Vital Signs Temp 98.5 F 12/19/17 16:41 Pulse 81 12/19/17 16:41 Resp 20 12/19/17 16:41 BP 143/75 12/19/17 16:41 Pulse Ox 97 12/19/17 21:00 - Labs Result Diagrams: 12/19/17 07:36 12/19/17 07:36 Labs: Laboratory Results - last 24 hr 12/18/17 12/19/17 12/19/17 17:39 07:36 07:36 WBC 8.9 RBC 4.71 Hgb 13.5 Hct 40.9 MCV 86.7 MCH 28.7 MCHC 33.2 RDW 15.2 H Plt Count 299 MPV 8.1 Neut % (Auto) 56.9 Lymph % (Auto) 26.5 [place] % (Auto) 12.7 H Eos % (Auto) 3.7 Baso % (Auto) 0.2 Neut # (Auto) 5.1 Lymph # (Auto) 2.4 [place] # (Auto) 1.1 H Eos # (Auto) 0.3 Baso # (Auto) 0.0 ESR 101 H APTT 36.6 Sodium Potassium Chloride Carbon Dioxide Anion Gap BUN Creatinine Est GFR ( Amer) Est GFR (Non-Af Amer) Random Glucose Calcium Total Bilirubin AST ALT Alkaline Phosphatase Total Protein Albumin Globulin Albumin/Globulin Ratio Prostate Specific Ag 25-OH Vitamin D Total TSH 3rd Generation Urine Color Urine Clarity Urine pH Ur Specific [place] Urine Protein Urine Glucose (UA) Urine Ketones Urine Blood Urine Nitrate Urine Bilirubin Urine Urobilinogen Ur Leukocyte Esterase Urine RBC (Auto) Urine Microscopic WBC Ur Squamous Epith Cells Urine Bacteria Blood Type Confirm B POSITIVE 12/19/17 12/19/17 12/19/17 07:36 07:36 08:40 WBC RBC Hgb Hct MCV MCH MCHC RDW Plt Count MPV Neut % (Auto) Lymph % (Auto) [place] % (Auto) Eos % (Auto) Baso % (Auto) Neut # (Auto) Lymph # (Auto) [place] # (Auto) Eos # (Auto) Baso # (Auto) ESR APTT Sodium 139 Potassium 4.4 Chloride 97 L Carbon Dioxide 31 H Anion Gap 15 BUN 15 Creatinine 0.9 Est GFR ( Amer) > 60 Est GFR (Non-Af Amer) > 60 Random Glucose 126 H Calcium 9.5 Total Bilirubin 0.5 AST 22 ALT 29 Alkaline Phosphatase 163 H Total Protein 8.3 H Albumin 3.6 Globulin 4.7 H Albumin/Globulin Ratio 0.8 L Prostate Specific Ag 0.148 25-OH Vitamin D Total 17.5 L TSH 3rd Generation 1.81 Urine Color Yellow Urine Clarity Turbid Urine pH 6.0 Ur Specific [place] 1.008 Urine Protein 30 Urine Glucose (UA) Neg Urine Ketones Negative Urine Blood Moderate Urine Nitrate Negative Urine Bilirubin Negative Urine Urobilinogen 0.2-1.0 Ur Leukocyte Esterase Large Urine RBC (Auto) 47 H Urine Microscopic WBC 1566 H Ur Squamous Epith Cells 1 Urine Bacteria Many H Blood Type Confirm - EKG Data EKG comments: Normal sinus rhythm - Imaging and Cardiology CT Abd/Pel Additional comment: [facility] Division of Radiology [address] [place] [address] Tel. no. Patient Name: WENDY BIRMINGHAM Pt. Address: [address] [place] [address]. Rec #: [id number] [place] [address]: Kane SOLER, Heather Katz Pt HOME Order Location: [facility] : 1935 Male Age: 82 Order #: [id number] Reason for exam: back pain CT Scan ABD PELVIS W/O PO OR IV CONT Exam Date: 12/18/17 This imaging exam was performed at [facility] EXAM: CT Abdomen and Pelvis Without Intravenous Contrast EXAM DATE/TIME: 12/18/2017 4:33 PM CLINICAL HISTORY: 82 years old, male; Pain; Other: Back pain TECHNIQUE: Axial computed tomography images of the abdomen and pelvis without intravenous contrast. All CT scans at this facility use one or more dose reduction techniques, viz.: automated exposure control; ma/kV adjustment per patient size (including targeted exams where dose is matched to indication; i.e. head); or iterative reconstruction technique. Coronal and sagittal reformatted images were created and reviewed. COMPARISON: No relevant prior studies available. FINDINGS: LOWER THORAX: Small pericardial effusion. Mild cardiomegaly. ABDOMEN: LIVER: No acute abnormality of the liver identified. GALLBLADDER AND BILE DUCTS: No CT evidence of acute cholecystitis. No evidence of significant biliary ductal dilatation. PANCREAS: No CT evidence of acute pancreatitis. SPLEEN: No acute abnormality of the spleen identified. ADRENALS: Adrenal glands appear mildly enlarged bilaterally and are low in density, but no focal, measurable masses or nodules are seen. Findings are unlikely of clinical significance. KIDNEYS AND URETERS: Low density lesion in the left kidney, most likely a cyst. This measures 1.2 cm. No evidence of renal stones, ureteral stones, or significant hydroureteronephrosis. STOMACH AND BOWEL: Retained stool noted throughout the colon. Bowel is otherwise unremarkable in appearance. No evidence of bowel obstruction. APPENDIX: Appendix is seen, and is within normal limits in appearance. PELVIS: BLADDER: Diffuse, moderate bladder wall thickening. Mild infiltration of the fat adjacent to the bladder. In an acute setting, the findings are suspicious for cystitis. Soft tissue at the bladder base, which is contiguous with the prostate gland. REPRODUCTIVE: Prostate gland is enlarged. ABDOMEN and PELVIS: INTRAPERITONEAL SPACE: No evidence of free intraperitoneal air or fluid. RETROPERITONEAL SPACE: No evidence of retroperitoneal hemorrhage. BONES/JOINTS: No acute fractures or other acute bony abnormality noted. SOFT TISSUES: No acute abnormality of the visualized soft tissues is seen. VASCULATURE: No evidence of abdominal aortic aneurysm. No evidence of periaortic hemorrhage. LYMPH NODES: No evidence of diffuse lymphadenopathy. IMPRESSION: - Bladder findings suspicious for cystitis. - Soft tissue at the bladder base. This could represent indentation of the bladder by the prostate gland, which is enlarged, however, in a patient of this age, a mass at the bladder base is difficult to exclude. Recommend correlation with urinalysis results and further workup as indicated clinically. - See above for remaining findings. Dictated By: Whit Mc MD Dictated Date/Time: 12/18/171950 Signed By: Whit Mc MD Date Signed: 1950 Transcribed By: TREV Transcribe Date/Time : 12/18/171950 [id number] CT lumbar Additional comment: [ Saved report ] [facility] Division of Radiology [address] [place] [address] Tel. no. Patient Name: WENDY BIRMINGHAM Pt. Address: [address] [place] [address] Rec #: [id number] [place] [address]: Kane SOLER, Heather Katz Pt HOME Order Location: [facility] : 1935 Male Age: 82 Order #: [id number] Reason for exam: severe back pain h/o T12 compression fracture CT Scan THORACIC SPINE W/O CONT Exam Date: 12/18/17 This imaging exam was performed at [facility] EXAM: CT Thoracic Spine Without Intravenous Contrast EXAM DATE/TIME: 12/18/2017 4:34 PM CLINICAL HISTORY: 82 years old, male; Pain; Pain in thoracic spine; Additional info: Severe back pain h/o t12 compression fracture TECHNIQUE: Axial computed tomography images of the thoracic spine without intravenous contrast. All CT scans at this facility use one or more dose reduction techniques, viz.: automated exposure control; ma/kV adjustment per patient size (including targeted exams where dose is matched to indication; i.e. head); or iterative reconstruction technique. Coronal and sagittal reformatted images were created and reviewed. COMPARISON: No relevant prior studies available. FINDINGS: VERTEBRAE: 50% compression fracture of T12. This is suspected to be recent (acute or subacute) in nature. There is a small amount of adjacent paravertebral hemorrhage, and associated bony fragmentation, with the fracture lines remaining evident. There is associated vacuum phenomenon. There is resultant mild vertebral retropulsion, causing mild bony spinal canal stenosis. No involvement of the posterior elements of T12. No additional acute fractures seen. No evidence of significant vertebral subluxation. DISCS/SPINAL CANAL/NEURAL FORAMINA: Moderate to severe multilevel degenerative disc disease. SOFT TISSUES: No acute abnormality of the visualized soft tissues is seen. IMPRESSION: - 50% compression fracture of T12, suspected to be recent (acute or subacute) in nature. There is associated mild vertebral retropulsion, causing mild bony spinal canal stenosis. - See above for remaining findings. Dictated By: Whit Mc MD Dictated Date/Time: 12/18/171939 Signed By: Whit Mc MD Date Signed: 1939 Transcribed By: TREV Transcribe Date/Time : 12/18/171939 [id number] [ Reading ] [ Conclusion ] Assessment & Plan (1) Prostate CA Status: Chronic Priority: Low (2) Compression fracture Status: Acute Priority: High (3) Intractable back pain Status: Acute Priority: High (4) Hypertension Status: Chronic Priority: Medium (5) Urinary tract infection Status: Acute Priority: High - Assessment and Plan (Free Text) Assessment: 82 year old male with pmhx of prostate ca, HTN, DM presents with c/o of severe back pain Noted to have compression fracture at T12 level, also has uti Plan: Neurosurgery consult Pain medications Neurology for hx of fall Started on antibiotics for uti urine culture Dvt prophylaxis with scd for now pending neuro surgery recommendation
[2017-12-20] MEDS ORDERED: Morphine 4 MG/ML VIAL IVP PRN
[2017-12-20 00:10] VITALS: TEMP 97.7
[2017-12-20 08:49] VITALS: BP 144/72; PULSE 78; RESP 20; O2SAT 92
--- NOTE | 2017-12-20 11:55 | MRI ---
PROCEDURE: MR THORACIC SPINE WITHOUT CONTRAST HISTORY: Fracture COMPARISON: None available. TECHNIQUE: Multiecho multiplanar sequences were performed through the thoracic spine without the use of intravenous contrast. FINDINGS: ALIGNMENT: There is normal alignment of the thoracic vertebral bodies. There is normal thoracic kyphosis. VERTEBRA: There is an acute superior endplate compression fracture deformity in the T12 vertebral body with approximately 70 percent loss of vertebral height without retropulsion. There is mild spinal canal stenosis without epidural hematoma MARROW: There is bone marrow edema/ contusion in the T12 vertebral body. Otherwise, bone marrow signal is within normal limits. PARASPINAL SOFT TISSUES: The paraspinous soft tissues are normal. CORD: The thoracic cord is normal in contour, caliber and has normal intrinsic signal. DISCS: There is multilevel degenerative disc disease with diffuse posterior disc bulges, worse at T8-9, T10-11, T11-12 and T12-L1 with moderate spinal canal stenosis. Also noted is severe left neural foraminal narrowing at T10-11, moderate neural foraminal narrowing at T11-12 and severe right neural foraminal narrowing at T12-L1. OTHER FINDINGS: No epidural hematoma. IMPRESSION: 1. Acute superior endplate compression fracture deformity in the T12 vertebral body with approximately 70 percent loss of vertebral height and mild spinal canal stenosis without cord compression. No epidural hematoma. 2. Multilevel degenerative disc disease in the medial lower thoracic spine with [id number] spinal canal stenosis and severe multilevel neural foraminal narrowing as described above. A preliminary report was provided by [facility].
--- NOTE | 2017-12-20 13:20 | CP.PCM.PCO ---
Assessment/Plan - Assessment/Plan Assessment (Free Text): Pt stable. Cleared by Dr. Demarco for d/c home with TLSO brace. Per Dr. Demarco , pt may ambulate without brace while waiting for brace. lumbar brace has been ordered and will arrive tomorrow. Pt's son will shrimp picker brace from here tomorrow. Pt, pt's son present at bedside and RN aware of plan. Rx given for Keflex and for outpatient PT evaluation.
--- NOTE | 2017-12-20 22:19 | CP.PCM.DIS ---
Provider - Provider Date of Admission: 12/18/17 19:51 Attending physician: Michel Reece MD Time Spent in preparation of Discharge (in minutes): 25 Diagnosis - Discharge Diagnosis (1) Prostate CA Status: Chronic (2) Compression fracture Status: Acute (3) Intractable back pain Status: Acute (4) Hypertension Status: Chronic (5) Urinary tract infection Status: Acute Hospital Course - Lab Results Lab Results: Micro Results 12/19/17 08:30 Urine,Clean Catch Urine Culture - Preliminary Gram Negative Zana Most Recent Lab Values WBC 8.9 K/uL (4.8-10.8) 12/19/17 07:36 RBC 4.71 Mil/uL (4.40-5.90) 12/19/17 07:36 Hgb 13.5 g/dL (12.0-18.0) 12/19/17 07:36 Hct 40.9 % (35.0-51.0) 12/19/17 07:36 MCV 86.7 fl (80.0-94.0) 12/19/17 07:36 MCH 28.7 pg (27.0-31.0) 12/19/17 07:36 MCHC 33.2 g/dL (33.0-37.0) 12/19/17 07:36 RDW 15.2 % (11.5-14.5) H 12/19/17 07:36 Plt Count 299 K/uL (130-400) 12/19/17 07:36 MPV 8.1 fl (7.2-11.7) 12/19/17 07:36 Neut % (Auto) 56.9 % (50.0-75.0) 12/19/17 07:36 Lymph % (Auto) 26.5 % (20.0-40.0) 12/19/17 07:36 [place] % (Auto) 12.7 % (0.0-10.0) H 12/19/17 07:36 Eos % (Auto) 3.7 % (0.0-4.0) 12/19/17 07:36 Baso % (Auto) 0.2 % (0.0-2.0) 12/19/17 07:36 Neut # (Auto) 5.1 K/uL (1.8-7.0) 12/19/17 07:36 Lymph # (Auto) 2.4 K/uL (1.0-4.3) 12/19/17 07:36 [place] # (Auto) 1.1 K/uL (0.0-0.8) H 12/19/17 07:36 Eos # (Auto) 0.3 K/uL (0.0-0.7) 12/19/17 07:36 Baso # (Auto) 0.0 K/uL (0.0-0.2) 12/19/17 07:36 ESR 101 mm/hr (0-20) H 12/19/17 07:36 PT 11.6 Seconds (9.8-13.1) 12/18/17 17:00 INR 1.0 (0.9-1.2) 12/18/17 17:00 APTT 36.6 Seconds (25.6-37.1) 12/19/17 07:36 Sodium 139 mmol/l (132-148) 12/19/17 07:36 Potassium 4.4 MMOL/L (3.6-5.0) 12/19/17 07:36 Chloride 97 mmol/L (98-107) L 12/19/17 07:36 Carbon Dioxide 31 mmol/L (22-30) H 12/19/17 07:36 Anion Gap 15 (10-20) 12/19/17 07:36 BUN 15 mg/dl (9-20) 12/19/17 07:36 Creatinine 0.9 mg/dl (0.8-1.5) 12/19/17 07:36 Est GFR ( Amer) > 60 12/19/17 07:36 Est GFR (Non-Af Amer) > 60 12/19/17 07:36 Random Glucose 126 mg/dL (75-110) H 12/19/17 07:36 Calcium 9.5 mg/dL (8.4-10.2) 12/19/17 07:36 Total Bilirubin 0.5 mg/dl (0.2-1.3) 12/19/17 07:36 AST 22 U/L (17-59) 12/19/17 07:36 ALT 29 U/L (21-72) 12/19/17 07:36 Alkaline Phosphatase 163 U/L (38-126) H 12/19/17 07:36 Troponin I < 0.0120 ng/mL (0.00-0.120) 12/18/17 17:00 Total Protein 8.3 G/DL (6.3-8.2) H 12/19/17 07:36 Albumin 3.6 g/dL (3.5-5.0) 12/19/17 07:36 Globulin 4.7 gm/dL (2.2-3.9) H 12/19/17 07:36 Albumin/Globulin Ratio 0.8 (1.0-2.1) L 12/19/17 07:36 Prostate Specific Ag 0.148 ng/ML (0.00-4.0) 12/19/17 07:36 25-OH Vitamin D Total 17.5 NG/ML (30.0-100.0) L 12/19/17 07:36 TSH 3rd Generation 1.81 mIU/ML (0.46-4.68) 12/19/17 07:36 Urine Color Yellow (YELLOW) 12/19/17 08:40 Urine Clarity Turbid (Clear) 12/19/17 08:40 Urine pH 6.0 (5.0-8.0) 12/19/17 08:40 Ur Specific [place] 1.008 (1.003-1.030) 12/19/17 08:40 Urine Protein 30 mg/dL (NEGATIVE) 12/19/17 08:40 Urine Glucose (UA) Neg mg/dL (Normal) 12/19/17 08:40 Urine Ketones Negative mg/dL (NEGATIVE) 12/19/17 08:40 Urine Blood Moderate (NEGATIVE) 12/19/17 08:40 Urine Nitrate Negative (NEGATIVE) 12/19/17 08:40 Urine Bilirubin Negative (NEGATIVE) 12/19/17 08:40 Urine Urobilinogen 0.2-1.0 mg/dL (0.2-1.0) 12/19/17 08:40 Ur Leukocyte Esterase Large Lillie/uL (Negative) 12/19/17 08:40 Urine RBC (Auto) 47 /hpf (0-3) H 12/19/17 08:40 Urine Microscopic WBC 1566 /hpf (0-5) H 12/19/17 08:40 Ur Squamous Epith Cells 1 /hpf (0-5) 12/19/17 08:40 Urine Bacteria Many (<OCC) H 12/19/17 08:40 Blood Type B POSITIVE 12/18/17 16:47 Blood Type Confirm B POSITIVE 12/18/17 17:39 Antibody Screen Negative 12/18/17 16:47 BBK History Checked No verified bt 12/18/17 16:47 - Hospital Course Hospital Course: 82 year old male who was admitted to hospital secondary to back pain following a fall about 3 and a half weeks ago. The patient's pain was managed and the patient felt better. The patient was seen by neurosurgeon who recommended a TLSO brace but no surgical intervention. The patient did well ambulating in the hospital. The patient was discharged home with recommendations for outpatient PT. The patient was also discharged home on Keflex for UTI with outpatient f/u instructions. Discharge Exam - Head Exam Head Exam: ATRAUMATIC, NORMOCEPHALIC - Neck Exam Neck exam: Full Rom - Respiratory Exam Respiratory Exam: Clear to PA & Lateral, NORMAL BREATHING PATTERN - Cardiovascular Exam Cardiovascular Exam: REGULAR RHYTHM, +S1, +S2 - GI/Abdominal Exam GI & Abdominal Exam: Normal Bowel Sounds, Soft, Unremarkable - Extremities Exam Extremities exam: full ROM, pedal pulses present - Neurological Exam Neurological exam: Alert, Oriented x3 - Psychiatric Exam Psychiatric exam: Normal Affect, Normal Mood - Skin Skin Exam: Dry, Normal Color, Warm Discharge Plan - Discharge Medications Prescriptions: Cephalexin [cephalexin] 500 mg PO Q8 5 Days #15 cap - Follow Up Plan Condition: STABLE Disposition: HOME/ ROUTINE Instructions: Vertebral Compression Fracture (DC), TLSO and LSO Additional Instructions: Complete all antibiotics. Follow up with PMD Dr. Ross in 1 week Please come back tomorrow 12/21/17 for TLSO brace Referrals: Michael Holbrook MD [Staff Provider] - Prieto Hayes MD [Medical Doctor] -
== END 2017-12-20 14:18 | disposition home or self-care (01) | DRG 239 ==
LOC: H.ER 14:27 → H.ERHOLD 19:51 → H.MEDSURG1 12-19 00:45
PROVIDERS: ADMIT Internal Medicine; ATTEND Internal Medicine
DX: M48.54XA Collapsed vertebra, not elsewhere classified, thoracic region, initial encounter for fracture (principal); E11.42 Type 2 diabetes mellitus with diabetic polyneuropathy; N39.0 Urinary tract infection, site not specified; W19.XXXA Unspecified fall, initial encounter; Z85.46 Personal history of malignant neoplasm of prostate; I10 Essential (primary) hypertension; M48.00 Spinal stenosis, site unspecified; M19.90 Unspecified osteoarthritis, unspecified site

== ENCOUNTER 2017-12-29 10:28 | Inpatient (IN) | payer MEDICAID ==
[2017-12-29 10:28] VITALS: BMI 30.4
[2017-12-29] MEDS ORDERED: Oxycodone/Acetaminophen 5/325 mg Tab PO STA (11:43)
--- NOTE | 2017-12-29 11:48 | ED PDOC ---
HPI: Back Time Seen by Provider: 12/29/17 10:38 Chief Complaint (Nursing): Back Pain History Per: Patient, Family History/Exam Limitations: language barrier (bulgarian pt inists on family ) Onset/Duration Of Symptoms: Gradual (for 1 month) Current Symptoms Are (Timing): Still Present Severity: Mild Previous Symptoms: Back Pain Associated Symptoms: None Exacerbating Factor(s): Movement Additional History Per: Patient Additional Complaint(s): Pt. accompanied by son for evaluation of "lower midline back pain on and off x 1 month, diagnosed with compression fracture after a fall about 1 month ago. No relief from OTC medication". pt admitted here 12/18/2017 has a mri that shows a superior endplate fracture at t12 with no spinal cord involvement. d/c here and is scheduled to f/u in one week. pt ran out of pain medication by now has sob due to the pain for 3 days. no bowel or bladder retention or incontinence no n/t /w Past Medical History Reviewed: Historical Data, Nursing Documentation, Vital Signs Vital Signs: Last Vital Signs Temp 97.0 F L 12/29/17 10:37 Pulse 96 H 12/29/17 10:37 Resp 16 12/29/17 10:37 BP 173/93 H 12/29/17 10:37 Pulse Ox 95 12/29/17 10:37 - Medical History PMH: Arthritis, Diabetes (type II), HTN Denies: Chronic Kidney Disease - Family History Family History: States: Unknown Family Hx - Living Arrangements Living Arrangements: With Family - Social History Current smoker - smoking cessation education provided: No - Home Medications Home Medications: Ambulatory Orders Medication Instructions Recorded Acetaminophen with Codeine 1 tab PO Q8 PRN 12/29/17 [Tylenol with Codeine #3 Tablet] Dutasteride [Avodart] 0.5 mg PO HS 12/29/17 - Allergies Allergies/Adverse Reactions: Allergies Allergy/AdvReac Type Severity Reaction Status Date / Time No Known Allergies Allergy Verified 01/27/17 22:33 Review of Systems ROS Statement: Except As Marked, All Systems Reviewed And Found Negative Constitutional: Negative for: Fever, Chills Cardiovascular: Negative for: Chest Pain, Palpitations Respiratory: Positive for: Shortness of Breath. Negative for: Cough Gastrointestinal: Negative for: Nausea, Vomiting, Abdominal Pain Musculoskeletal: Positive for: Back Pain Neurological: Negative for: Weakness, Numbness, Altered Mental Status, Headache , Dizziness Physical Exam - Reviewed Nursing Documentation Reviewed: Yes Vital Signs Reviewed: Yes - Physical Exam Appears: Positive for: Non-toxic, Uncomfortable Head Exam: Positive for: ATRAUMATIC, NORMAL INSPECTION, NORMOCEPHALIC Eye Exam: Positive for: Normal appearance, EOMI, PERRL Neck: Positive for: Normal, Painless ROM, Supple Cardiovascular/Chest: Positive for: Regular Rate, Rhythm, Chest Non Tender. Negative for: Edema, Gallop, Murmur, Bradycardia, Tachycardia Respiratory: Positive for: Normal Breath Sounds. Negative for: Decreased Breath Sounds, Rhonchi, Wheezing Pulses-Radial (L): 2+ Pulses-Radial (R): 2+ Gastrointestinal/Abdominal: Positive for: Normal Exam, Bowel Sounds, Soft. Negative for: Tenderness Back: Positive for: Normal Inspection, Vertebral Tenderness (mild at t12), Decreased ROM Extremity: Positive for: Normal ROM. Negative for: Tenderness, Pedal Edema, Calf Tenderness, Deformity, Swelling Neurologic/Psych: Positive for: Alert, milk processing worker II-XII, Oriented, Mood/Affect (calm) , Other (+ ehl bl, nml rom of le, no saddles anesthesia). Negative for: Motor/ Sensory Deficits, Aphasia, Facial Droop - Laboratory Results Result Diagrams: 12/30/17 04:45 12/30/17 04:45 - ECG O2 Sat by Pulse Oximetry: 95 Pulse Ox Interpretation: Normal Disposition - Clinical Impression Clinical Impression: Complicated UTI (urinary tract infection), Back pain, Dyspnea - Patient ED Disposition Is Patient to be Admitted: Transfer of Care Counseled Patient/Family Regarding: Studies Performed, Diagnosis - Disposition Disposition Time: 16:00 Condition: FAIR
[2017-12-29] MEDS ORDERED: Oxycodone/Acetaminophen 5/325 mg Tab ONE (12:02)
[2017-12-29 12:27] LABS: RENAL EPITHELIAL 1 /hpf (0-3); URINE BACTERIA RARE (<OCC); URINE BILIRUBIN NEGATIVE (NEGATIVE); URINE BLOOD MODERATE (NEGATIVE); URINE CLARITY TURBID (Clear); URINE COLOR AMBER (YELLOW); URINE GLUCOSE (UA) NEG (Normal); URINE LEUKOCYTE ESTERASE LARGE Leu/uL (Negative); URINE NITRATE POSITIVE (NEGATIVE); URINE PROTEIN 30 mg/dL (NEGATIVE); URINE UROBILINOGEN 0.2-1.0 mg/dL (0.2-1.0); WBC CLUMPS MANY /hpf
[2017-12-29 13:01] LABS: BASO # 0.1 K/uL (0.0-0.2); BASO % 0.7 % (0.0-2.0); EOS # 0.1 K/uL (0.0-0.7); EOS % 1.3 % (0.0-4.0); HEMOGLOBIN 13.6 g/dL (12.0-18.0); LYMPH # 1.7 K/uL (1.0-4.3); LYMPH % 15.9 % (20.0-40.0); MEAN CELL VOLUME 85.6 fl (80.0-94.0); MEAN CORPUSCULAR HGB CONC 33.9 g/dL (33.0-37.0); MEAN PLATELET VOLUME 7.7 fl (7.2-11.7); MONO # 0.7 K/uL (0.0-0.8); MONO % 7.2 % (0.0-10.0); NEUT # 7.8 K/uL (1.8-7.0); NEUT % 74.9 % (50.0-75.0); RBC 4.68 Mil/uL (4.40-5.90); WHITE BLOOD COUNT 10.4 K/uL (4.8-10.8)
[2017-12-29 13:16] LABS: PARTIAL THROMBOPLASTIN TIME 35.9 Seconds (25.6-37.1); PROTHROMBIN TIME 11.5 Seconds (9.8-13.1)
[2017-12-29 13:24] LABS: ALB/GLOB RATIO 0.8 (1.0-2.1); ALBUMIN 3.9 g/dL (3.5-5.0); ALT/SGPT 29 U/L (21-72); AST/SGOT 29 U/L (17-59); BLOOD UREA NITROGEN 12 mg/dl (9-20); CALCIUM 9.9 mg/dL (8.4-10.2); GFR AFRICAN-AMERICAN > 60; GFR NON-AFRICAN AMERICAN > 60; LIPASE 45 U/L (23-300); MAGNESIUM 1.9 MG/DL (1.6-2.3)
[2017-12-29 13:29] LABS: B-TYPE NATRIURETIC PEPTIDE 406 pg/ml (0-900)
[2017-12-29] MEDS ORDERED: Iodixanol 320 MG/ML 100 ML BOTTLE IV ONE (14:00)
[2017-12-29] MEDS ORDERED: Sodium Chloride 0.9% 100 ML ONE (14:01)
--- NOTE | 2017-12-29 14:54 | RAD ---
PROCEDURE: CHEST RADIOGRAPH, 1 VIEW HISTORY: sob COMPARISON: Portable chest 07/25/2016. FINDINGS: LUNGS: Reticular markings appears somewhat diffusely increased in this patient and elements of limited CHF is not excluded. Clinically correlate further. Cardiomegaly appears stable. No acute infiltrate or pleural effusion bilaterally. No pneumothorax either. PLEURA: As above. CARDIOVASCULAR: As above. OSSEOUS STRUCTURES: No significant abnormalities. VISUALIZED UPPER ABDOMEN: Normal. OTHER FINDINGS: None. IMPRESSION: Potential limited CHF pattern. No acute infiltrate pleural effusion or pneumothorax. PA review assigned.
--- NOTE | 2017-12-29 15:30 | ED PDOC ---
- Laboratory Results Result Diagrams: 12/29/17 12:52 12/29/17 12:52 Interpretation Of Abn Labs: urine wbc - ECG ECG: Positive for: Interpreted By Me, Viewed By Me Interpretation Of Abn EKG: RBBB O2 Sat by Pulse Oximetry: 95 Pulse Ox Interpretation: Normal - CT Scan/US ct Other Rad Studies (CT/US): Read By Radiologist Other Rad Interpretation: no acute - Progress ED Course And Treament: 1529: Stable. Took over care from Dr. Mathew. Fu on cta. Here with dyspnea. 1627: Stable. AAOx3. Will give antibiotics for uti. Here with weakness as well. Will need admit. 1640: Spoke with Dr. Reece. Well known pt. to him. Will admit tele. Per records has ESBL. Sensitive to meropenem. Will start that. AAOx3. No dyspnea at this time. Disposition - Clinical Impression Clinical Impression: Complicated UTI (urinary tract infection), Back pain, Dyspnea - POA Present On Arrival: None - Disposition Disposition: Admitted as In-Patient Disposition Time: 16:42 Condition: FAIR
[2017-12-29] MEDS ORDERED: Ciprofloxacin 400mg/200ml D5W 400 MG/200 ML BAG IV STA (15:43)
[2017-12-29] MEDS ORDERED: Ciprofloxacin 400mg/200ml D5W 400 MG/200 ML BAG IVPB ONE (15:47)
--- NOTE | 2017-12-29 16:09 | CT ---
PROCEDURE: CT Chest with contrast (Pulmonary Angiogram) HISTORY: sob r/o pe COMPARISON: None available. TECHNIQUE: Axial computed tomography images were obtained of the chest in the pulmonary arterial phase of enhancement. Coronal and sagittal reformatted images were created and reviewed. Intravenous contrast dose: Visipaque 320, 90 cc Radiation dose: Total exam DLP = 404.63 mGy-cm. This CT exam was performed using one or more of the following dose reduction techniques: Automated exposure control, adjustment of the mA and/or kV according to patient size, and/or use of iterative reconstruction technique. FINDINGS: PULMONARY ARTERIES: Unremarkable. No pulmonary embolism. 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 [id number] pole aortic atherosclerosis identified. LUNGS: Trace biapical pulmonary fibrosis noted. Trace nodularity at the trachea may reflect mucoid material. The appearance is indeterminate. Limited bilateral basilar dependent atelectasis without acute infiltrate identified. PLEURAL SPACES: Unremarkable. No effusion or pneuomothorax. HEART: Cardiomegaly is appreciated without definite pericardial effusion. No definite pulmonary venous congestion. LYMPH NODES: No significant mediastinal hilar or axillary lymphadenopathy. BONES, CHEST WALL: Chronic healed left 6th and 7th rib fractures as well as chronic severe T12 compression fracture again evident OTHER FINDINGS: Unremarkable. IMPRESSION: 1. No definite CT evidence to suggest pulmonary embolus. 2. Limited bilateral basilar dependent atelectasis. No pleural or pericardial effusion or pneumothorax identified. Trace biapical pleural thickening is identified. Trace nodularity at the inner lumen of the trachea may reflect mucoid material but is indeterminate. Clinically correlate further. 3. Cardiomegaly. Limited ascending thoracic aorta terminating at aortic arch. 4. Incidental heel left 6th and 7th rib fractures as well as chronic severe T12 compression fracture.
[2017-12-29 16:21] LABS: VENOUS BLOOD GAS BASE EXCESS 7.3 mmol/L (0.0-2.0); VENOUS BLOOD GAS PCO2 58 mmHg (40-60); VENOUS BLOOD GAS PO2 19 mm/Hg (30-55); VENOUS BLOOD PH 7.38 (7.32-7.43)
[2017-12-29] MEDS ORDERED: Meropenem 1 GM in Sodium Chloride 0.9% 100 ML IVPB ONE (16:38)
[2017-12-29] MEDS ORDERED: Oxycodone/Acetaminophen 5/325 mg Tab PO PRN (20:06)
[2017-12-29] MEDS: Sodium Chloride 0.9% 1,000 ML IV SCH (21:03)
[2017-12-29] MEDS: Insulin Lispro (humaLOG) 100 Units/ml Inj SC SCH (21:50)
--- NOTE | 2017-12-30 00:13 | CP.PCM.HP ---
History of Present Illness - History of Present Illness History of Present Illness: Cc: Lower back pain 82 year old male with a pmhx of prostate ca, HTN and DM who presents to the ED with c/o of lower back pain not relieved by OTC medications. The patient fell about a month ago, was admitted here at [place] on 12/18/[address] report of T12 compression fracture. The patient was seen by neurosurgery, no surgical intervention was recommended, the pt was discharged home with a back brace. The patient was also discharged home on antibiotics for uti. The patient reports pain as intermittent with a severity of 6-8/10 on the pain scale. The patient is able to ambulate with assistance. Denies chest pain, sob, fever, chills, headache, N/V or any urinary symptoms. UA revealed a uti. The patient was given IV abx in the ED and was admitted for UTI with ESBL+ E. coli requiring IV Carabapenem, and failed outpatient treatment. Present on Admission - Present on Admission Any Indicators Present on Admission: No Review of Systems - Review of Systems All systems: reviewed and no additional remarkable complaints except (as stated) - Constitutional Constitutional: As Per HPI - Cardiovascular Cardiovascular: As Per HPI - Respiratory Respiratory: As Per HPI - Gastrointestinal Gastrointestinal: As Per HPI - Genitourinary Genitourinary: absent: Change in Urinary Stream, Difficulty Urinating, Dysuria, Flank Pain Past Patient History - Infectious Disease Hx of Infectious Diseases: None - Past Medical History & Family History Past Medical History?: Yes Pertinent Family History: States; Unknown - Past Social History Smoking Status: Never Smoked - CARDIAC Hx Cardiac Disorders: Yes Hx Hypertension: Yes - PULMONARY Hx Respiratory Disorders: No - NEUROLOGICAL Hx Neurological Disorder: No - HEENT Hx HEENT Problems: No - RENAL Hx Chronic Kidney Disease: No - ENDOCRINE/METABOLIC Hx Endocrine Disorders: Yes Hx Diabetes Mellitus Type 2: Yes - HEMATOLOGICAL/ONCOLOGICAL Hx Blood Disorders: Yes Hx Cancer: Yes (prostate) - INTEGUMENTARY Hx Dermatological Problems: No - MUSCULOSKELETAL/RHEUMATOLOGICAL Hx Musculoskeletal Disorders: Yes Hx Arthritis: Yes Hx Back Pain: Yes Hx Falls: Yes - GASTROINTESTINAL Hx Gastrointestinal Disorders: No - GENITOURINARY/GYNECOLOGICAL Hx Genitourinary Disorders: No - PSYCHIATRIC Hx Psychophysiologic Disorder: No Hx Substance Use: No - SURGICAL HISTORY Hx Surgeries: Yes Hx Cataract Extraction: Yes (bilateral) Other/Comment: Prostatectomy - ANESTHESIA Hx Anesthesia: Yes Hx Anesthesia Reactions: No Hx Malignant Hyperthermia: No Meds Home Medications: Home Medication List Medication Instructions Recorded Confirmed Type Enoxaparin [Lovenox] 40 mg SC DAILY syr 01/03/18 Rx Meropenem IV 1 gm in NS [Merrem IV 1 gm IVPB Q8 #21 bag 01/03/18 Rx 1 gm Premix] amLODIPine [Norvasc] 10 mg PO DAILY tab 01/03/18 Rx Allergies/Adverse Reactions: Allergies Allergy/AdvReac Type Severity Reaction Status Date / Time No Known Allergies Allergy Verified 01/27/17 22:33 Physical Exam - Constitutional Appears: Well, No Acute Distress - Head Exam Head Exam: ATRAUMATIC, NORMOCEPHALIC - Eye Exam Eye Exam: EOMI, Normal appearance, PERRL Pupil Exam: NORMAL ACCOMODATION - ENT Exam ENT Exam: Mucous Membranes Moist - Neck Exam Neck exam: Positive for: Full Rom, Normal Inspection - Respiratory Exam Respiratory Exam: Decreased Breath Sounds, NORMAL BREATHING PATTERN - Cardiovascular Exam Cardiovascular Exam: REGULAR RHYTHM, +S1, +S2 - GI/Abdominal Exam GI & Abdominal Exam: Distended, Normal Bowel Sounds, Soft - Rectal Exam Rectal Exam: Deferred - Extremities Exam Extremities exam: Positive for: normal inspection, pedal pulses present - Back Exam Back exam: NORMAL INSPECTION - Neurological Exam Neurological exam: Alert, Oriented x3 - Psychiatric Exam Psychiatric exam: Normal Affect - Skin Skin Exam: Normal Color, Warm Results - Vital Signs Recent Vital Signs: Last Vital Signs Temp 97.5 F L 12/29/17 21:14 Pulse 93 H 12/29/17 21:14 Resp 20 12/29/17 21:14 BP 145/67 12/29/17 21:14 Pulse Ox 97 12/29/17 21:14 - Labs Result Diagrams: 01/02/18 12:30 01/02/18 12:30 Labs: Laboratory Results - last 24 hr 12/29/17 12/29/17 12/29/17 12:08 12:52 12:52 WBC 10.4 RBC 4.68 Hgb 13.6 Hct 40.1 MCV 85.6 MCH 29.0 MCHC 33.9 RDW 15.0 H Plt Count 302 MPV 7.7 Neut % (Auto) 74.9 Lymph % (Auto) 15.9 L [place] % (Auto) 7.2 Eos % (Auto) 1.3 Baso % (Auto) 0.7 Neut # (Auto) 7.8 H Lymph # (Auto) 1.7 [place] # (Auto) 0.7 Eos # (Auto) 0.1 Baso # (Auto) 0.1 PT INR APTT D-Dimer, Quantitative pO2 VBG pH VBG pCO2 VBG HCO3 VBG Total CO2 VBG O2 Sat (Calc) VBG Base Excess VBG Potassium Glucose Lactate FiO2 Sodium 138 Potassium 4.3 Chloride 96 L Carbon Dioxide 29 Anion Gap 17 BUN 12 Creatinine 0.8 Est GFR ( Amer) > 60 Est GFR (Non-Af Amer) > 60 POC Glucose (mg/dL) Random Glucose 148 H Calcium 9.9 Magnesium 1.9 Total Bilirubin 0.5 AST 29 ALT 29 Alkaline Phosphatase 166 H Troponin I 0.0190 NT-Pro-B Natriuret Pep 406 Total Protein 8.9 H Albumin 3.9 Globulin 5.0 H Albumin/Globulin Ratio 0.8 L Lipase 45 Venous Blood Potassium Urine Color Kylie Urine Clarity Turbid Urine pH 6.0 Ur Specific [place] 1.006 Urine Protein 30 Urine Glucose (UA) Neg Urine Ketones Negative Urine Blood Moderate Urine Nitrate Positive H Urine Bilirubin Negative Urine Urobilinogen 0.2-1.0 Ur Leukocyte Esterase Large Urine RBC (Auto) 29 H Urine WBC Clumps (Auto) Many H Urine Microscopic WBC 1195 H Ur Renal Epithelial Cell 1 Urine Bacteria Rare 12/29/17 12/29/17 12/29/17 12:52 16:15 20:55 WBC RBC Hgb Hct MCV MCH MCHC RDW Plt Count MPV Neut % (Auto) Lymph % (Auto) [place] % (Auto) Eos % (Auto) Baso % (Auto) Neut # (Auto) Lymph # (Auto) [place] # (Auto) Eos # (Auto) Baso # (Auto) PT 11.5 INR 1.0 APTT 35.9 D-Dimer, Quantitative 343 H pO2 19 L VBG pH 7.38 VBG pCO2 58 VBG HCO3 28.7 VBG Total CO2 36.1 H VBG O2 Sat (Calc) 34.5 L VBG Base Excess 7.3 H VBG Potassium 3.7 Glucose 116 H Lactate 1.1 FiO2 21.0 Sodium 134.0 Potassium Chloride 101.0 Carbon Dioxide Anion Gap BUN Creatinine Est GFR ( Amer) Est GFR (Non-Af Amer) POC Glucose (mg/dL) 185 H Random Glucose Calcium Magnesium Total Bilirubin AST ALT Alkaline Phosphatase Troponin I NT-Pro-B Natriuret Pep Total Protein Albumin Globulin Albumin/Globulin Ratio Lipase Venous Blood Potassium 3.7 Urine Color Urine Clarity Urine pH Ur Specific [place] Urine Protein Urine Glucose (UA) Urine Ketones Urine Blood Urine Nitrate Urine Bilirubin Urine Urobilinogen Ur Leukocyte Esterase Urine RBC (Auto) Urine WBC Clumps (Auto) Urine Microscopic WBC Ur Renal Epithelial Cell Urine Bacteria Urine C/S: ESBL+ Ecoli. - Imaging and Cardiology Chest x-ray Additional comment: PROCEDURE: CHEST RADIOGRAPH, 1 VIEW HISTORY: sob COMPARISON: Portable chest 07/25/2016. FINDINGS: LUNGS: Reticular markings appears somewhat diffusely increased in this patient and elements of limited CHF is not excluded. Clinically correlate further. Cardiomegaly appears stable. No acute infiltrate or pleural effusion bilaterally. No pneumothorax either. PLEURA: As above. CARDIOVASCULAR: As above. OSSEOUS STRUCTURES: No significant abnormalities. VISUALIZED UPPER ABDOMEN: Normal. OTHER FINDINGS: None. IMPRESSION: Potential limited CHF pattern. No acute infiltrate pleural effusion or pneumothorax. PA review assigned. CT scan - chest Additional comment: HISTORY: sob r/o pe COMPARISON: None available. TECHNIQUE: Axial computed tomography images were obtained of the chest in the pulmonary arterial phase of enhancement. Coronal and sagittal reformatted images were created and reviewed. Intravenous contrast dose: Visipaque 320, 90 cc Radiation dose: Total exam DLP = 404.63 mGy-cm. This CT exam was performed using one or more of the following dose reduction techniques: Automated exposure control, adjustment of the mA and/or kV according to patient size, and/or use of iterative reconstruction technique. FINDINGS: PULMONARY ARTERIES: Unremarkable. No pulmonary embolism. 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 [id number] pole aortic atherosclerosis identified. LUNGS: Trace biapical pulmonary fibrosis noted. Trace nodularity at the trachea may reflect mucoid material. The appearance is indeterminate. Limited bilateral basilar dependent atelectasis without acute infiltrate identified. PLEURAL SPACES: Unremarkable. No effusion or pneuomothorax. HEART: Cardiomegaly is appreciated without definite pericardial effusion. No definite pulmonary venous congestion. LYMPH NODES: No significant mediastinal hilar or axillary lymphadenopathy. BONES, CHEST WALL: Chronic healed left 6th and 7th rib fractures as well as chronic severe T12 compression fracture again evident OTHER FINDINGS: Unremarkable. IMPRESSION: 1. No definite CT evidence to suggest pulmonary embolus. 2. Limited bilateral basilar dependent atelectasis. No pleural or pericardial effusion or pneumothorax identified. Trace biapical pleural thickening is identified. Trace nodularity at the inner lumen of the trachea may reflect mucoid material but is indeterminate. Clinically correlate further. 3. Cardiomegaly. Limited ascending thoracic aorta terminating at aortic arch. 4. Incidental heel left 6th and 7th rib fractures as well as chronic severe T12 compression fracture. [ Reading ] [ Conclusion ] Assessment & Plan (1) Back pain Status: Acute Priority: Medium (2) Diabetes mellitus Status: Chronic Priority: Low (3) Urinary tract infection Status: Acute Priority: High (4) Hypertension Status: Chronic Priority: Low - Assessment and Plan (Free Text) Assessment: 82 year old male admitted for recurrent uti Plan: IV Meropenem Repeat Urine culture Blood Culture ID consult IVF Ct abdomen/Pelvis Urology Consult DVT Prophylaxis
[2017-12-30] MEDS: Sodium Chloride 0.9% 1,000 ML IV SCH (05:43)
[2017-12-30 06:19] LABS: HEMOGLOBIN 12.7 g/dL (12.0-18.0); MEAN CELL VOLUME 85.5 fl (80.0-94.0); MEAN CORPUSCULAR HEMOGLOBIN 28.8 pg (27.0-31.0); MEAN CORPUSCULAR HGB CONC 33.7 g/dL (33.0-37.0); RBC 4.41 Mil/uL (4.40-5.90); RED CELL DISTRIBUTION WIDTH 14.9 % (11.5-14.5); WHITE BLOOD COUNT 8.2 K/uL (4.8-10.8)
[2017-12-30] MEDS: Insulin Lispro (humaLOG) 100 Units/ml Inj SC SCH ×4 (06:32→22:44)
[2017-12-30 06:40] LABS: BLOOD UREA NITROGEN 11 mg/dl (9-20); CALCIUM 9.1 mg/dL (8.4-10.2); GFR AFRICAN-AMERICAN > 60; GFR NON-AFRICAN AMERICAN > 60
[2017-12-30] MEDS: Enoxaparin 40 mg Syringe SC SCH (08:44)
[2017-12-30] MEDS: Meropenem 1 GM in Sodium Chloride 0.9% 100 ML IVPB SCH ×2 (13:20→17:04)
--- NOTE | 2017-12-30 13:53 | CP.PCM.CON ---
History of Present Illness - History of Present Illness History of Present Illness: Pt diagnosed with compression fracture after a fall about 1 month ago. No relief from OTC medication". Was admitted here 12/18/2017 has a mri that shows a superior endplate fracture at t12 with no spinal cord involvement. Readmitted as pt ran out of pain medication ID consulted for recurrent UTI + ESBL denies fever / chills Review of Systems - Constitutional Constitutional: As Per HPI - EENT Eyes: absent: As Per HPI, Blind Spots, Blurred Vision, Change in Vision, Decreased Night Vision, Diplopia, Discharge, Dry Eye, Exophthalmos, Floaters, Irritation, Itchy Eyes, Loss of Peripheral Vision, Pain, Photophobia, Requires Corrective Lenses, Sees Flashes, Spots in Vision, Tunnel Vision, Other Visual Disturbances, Loss of Vision, Other Ears: absent: As Per HPI, Decreased Hearing, Ear Discharge, Ear Pain, Tinnitus, Abnormal Hearing, Disequilibrium, Dizziness, Other Nose/Mouth/Throat: absent: As Per HPI, Epistaxis, Nasal Congestion, Nasal Discharge, Nasal Obstruction, Nasal Trauma, Nose Pain, Post Nasal Drip, Sinus Pain, Sinus Pressure, Bleeding Gums, Change in Voice, Dental Pain, Dry Mouth, Dysphagia, Halitosis, Hoarsness, Lip Swelling, Mouth Lesions, Mouth Pain, Odynophagia, Sore Throat, Throat Swelling, Tongue Swelling, Facial Pain, Neck Pain, Neck Mass, Other - Cardiovascular Cardiovascular: absent: As Per HPI, Acrocyanosis, Chest Pain, Chest Pain at Rest , Chest Pain with Activity, Claudication, Diaphoresis, Dyspnea, Dyspnea on Exertion, Edema, Irregular Heart Rhythm, Pain Radiating to Arm/Neck/Jaw, Leg Edema, Leg Ulcers, Lightheadedness, Orthopnea, Palpitations, Paroxysmal Nocturnal Dyspnea, Pedal Edema, Radiating Pain, Rapid Heart Rate, Slow Heart Rate, Syncope, Other - Respiratory Respiratory: absent: As Per HPI, Cough, Dyspnea, Hemoptysis, Dyspnea on Exertion , Wheezing, Snoring, Stridor, Pain on Inspiration, Chest Congestion, Excessive Mucous Production, Change in Mucous Color, Pain with Coughing, Other - Gastrointestinal Gastrointestinal: absent: As Per HPI, Abdominal Pain, Belching, Bloating, Change in Bowel Habits, Change in Stool Character, Coffee Ground Emesis, Constipation, Cramping, Diarrhea, Dyspepsia, Dysphagia, Early Satiety, Excessive Flatus, Fecal Incontinence, Heartburn, Hematemesis, Hematochezia, Loose Stools, Melena, Nausea, Odynophagia, Temesmus, Vomiting, Other - Genitourinary Genitourinary: As Per HPI - Reproductive: Male Reproductive:Male: As Per HPI - Musculoskeletal Musculoskeletal: As Per HPI - Integumentary Integumentary: absent: As Per HPI, Acne, Alopecia, Bleeding Lesions, Change in Hair, Change in Nails, Change in Pigmentation, Changing Lesions, Dry Skin, Erythema, Furuncle, Hirsutism, Lesions, New Lesions, Non-Healing Lesions, Photosensitivity, Pruritus, Rash, Skin Pain, Skin Ulcer, Sores, Striae, Swelling , Unusual Bruising, Wounds, Jaundice, Other - Neurological Neurological: absent: As Per HPI, Abnormal Gait, Abnormal Hearing, Abnormal Movements, Abnormal Speech, Behavioral Changes, Burning Sensations, Confusion, Convulsions, Disequilibrium, Dizziness, Numbness, Focal Weakness, Frequent Falls , Headaches, Lack of Coordination, Loss of Vision, Memory Loss, Paresthesias, Radicular Pain, Restless Legs, Sensory Deficit, Syncope, Tingling, Tremor, Vertigo, Weakness, Other Visual Disturbances, Other - Psychiatric Psychiatric: absent: As Per HPI, Abnormal Sleep Pattern, Anhedonia, Anxiety, Auditory Hallucinations, Behavioral Changes, Change in Appetite, Change in Libido, Confusion, Depression, Difficulty Concentrating, Hallucinations, Homicidal Ideation, Hopelessness, Irritability, Memory Loss, Mood Swings, Panic Attacks, Paranoia, Suicidal Ideation, Visual Hallucinations, Tactile Hallucinations, Other - Endocrine Endocrine: absent: As Per HPI, Change in Body Appearance, Change in Libido, Cold Intolorance, Deepening of Voice, Excessive Sweating, Fatigue, Flushing, Heat Intolorance, Increase in Ring/Shoe/Hat Size, Palpitations, Polydipsia, Polyphagia, Polyuria, Other - Hematologic/Lymphatic Hematologic: absent: As Per HPI, Easy Bleeding, Easy Bruising, Lymphadenopathy, Other Past Patient History - Infectious Disease Hx of Infectious Diseases: None - Past Medical History & Family History Past Medical History?: Yes - Past Social History Smoking Status: Never Smoked - CARDIAC Hx Cardiac Disorders: Yes Hx Hypertension: Yes - PULMONARY Hx Respiratory Disorders: No - NEUROLOGICAL Hx Neurological Disorder: No - HEENT Hx HEENT Problems: No - RENAL Hx Chronic Kidney Disease: No - ENDOCRINE/METABOLIC Hx Endocrine Disorders: Yes Hx Diabetes Mellitus Type 2: Yes - HEMATOLOGICAL/ONCOLOGICAL Hx Blood Disorders: Yes Hx Cancer: Yes (prostate) - INTEGUMENTARY Hx Dermatological Problems: No - MUSCULOSKELETAL/RHEUMATOLOGICAL Hx Musculoskeletal Disorders: Yes Hx Arthritis: Yes Hx Back Pain: Yes Hx Falls: Yes - GASTROINTESTINAL Hx Gastrointestinal Disorders: No - GENITOURINARY/GYNECOLOGICAL Hx Genitourinary Disorders: No - PSYCHIATRIC Hx Psychophysiologic Disorder: No Hx Substance Use: No - SURGICAL HISTORY Hx Surgeries: Yes Hx Cataract Extraction: Yes (bilateral) Other/Comment: Prostatectomy - ANESTHESIA Hx Anesthesia: Yes Hx Anesthesia Reactions: No Hx Malignant Hyperthermia: No Meds Allergies/Adverse Reactions: Allergies Allergy/AdvReac Type Severity Reaction Status Date / Time No Known Allergies Allergy Verified 01/27/17 22:33 - Medications Medications: Current Medications Enoxaparin Sodium (Lovenox) 40 mg SC DAILY JONATHON PRN Reason: Protocol Last Admin: 12/30/17 08:44 Dose: 40 mg Home Med (Dutasteride [Avodart]) 0.5 mg PO HS JONATHON Sodium Chloride (Sodium Chloride 0.9%) 1,000 mls @ 100 mls/hr IV .Q10H JONATHON Stop: 12/30/17 18:16 Last Admin: 12/30/17 05:43 Dose: Not Given Meropenem 1 gm/ Sodium (Chloride) 100 mls @ 100 mls/hr IVPB Q8 JONATHON PRN Reason: Protocol Last Admin: 12/30/17 13:20 Dose: 100 mls/hr Insulin Human Lispro (Humalog) 0 units SC ACHS JONATHON PRN Reason: Protocol Last Admin: 12/30/17 12:49 Dose: Not Given Morphine Sulfate (Morphine) 1 mg IVP Q6 PRN PRN Reason: Pain, severe (8-10) Oxycodone/Acetaminophen (Percocet 5/325 Mg Tab) 1 tab PO Q4 PRN PRN Reason: Pain, moderate (4-7) Stop: 01/01/18 20:07 Last Admin: 12/30/17 01:20 Dose: 1 tab Physical Exam - Constitutional Appears: Non-toxic, Chronically Ill - Head Exam Head Exam: NORMOCEPHALIC - Eye Exam Eye Exam: PERRL. absent: Scleral icterus - ENT Exam ENT Exam: Mucous Membranes Dry, Normal External Ear Exam - Neck Exam Neck exam: Negative for: Lymphadenopathy - Respiratory Exam Respiratory Exam: Decreased Breath Sounds, Clear to Auscultation Bilateral - Cardiovascular Exam Cardiovascular Exam: REGULAR RHYTHM, +S1, +S2 - GI/Abdominal Exam GI & Abdominal Exam: Diminished Bowel Sounds, Soft. absent: Tenderness - Rectal Exam Rectal Exam: Deferred - Exam Exam: NORMAL INSPECTION - Extremities Exam Extremities exam: Positive for: pedal pulses present. Negative for: calf tenderness, pedal edema, tenderness - Back Exam Back exam: absent: CVA tenderness (L), CVA tenderness (R), paraspinal tenderness - Neurological Exam Neurological exam: Alert, CN II-XII Intact, Oriented x3, Reflexes Normal - Psychiatric Exam Psychiatric exam: Depressed - Skin Skin Exam: Dry Results - Vital Signs Recent Vital Signs: Last Vital Signs Temp 98 F 12/30/17 12:38 Pulse 82 12/30/17 12:38 Resp 18 12/30/17 12:38 BP 170/79 H 12/30/17 12:38 Pulse Ox 96 12/30/17 12:38 - Labs Result Diagrams: 12/30/17 04:45 12/30/17 04:45 Labs: Laboratory Results - last 24 hr 12/29/17 12/29/17 12/30/17 16:15 20:55 04:45 WBC 8.2 RBC 4.41 Hgb 12.7 Hct 37.7 MCV 85.5 MCH 28.8 MCHC 33.7 RDW 14.9 H Plt Count 267 pO2 19 L VBG pH 7.38 VBG pCO2 58 VBG HCO3 28.7 VBG Total CO2 36.1 H VBG O2 Sat (Calc) 34.5 L VBG Base Excess 7.3 H VBG Potassium 3.7 Sodium 134.0 Chloride 101.0 Glucose 116 H Lactate 1.1 FiO2 21.0 Potassium Carbon Dioxide Anion Gap BUN Creatinine Est GFR ( Amer) Est GFR (Non-Af Amer) POC Glucose (mg/dL) 185 H Random Glucose Calcium Prostate Specific Ag Venous Blood Potassium 3.7 12/30/17 12/30/17 12/30/17 04:45 05:30 11:14 WBC RBC Hgb Hct MCV MCH MCHC RDW Plt Count pO2 VBG pH VBG pCO2 VBG HCO3 VBG Total CO2 VBG O2 Sat (Calc) VBG Base Excess VBG Potassium Sodium 136 Chloride 99 Glucose Lactate FiO2 Potassium 3.8 Carbon Dioxide 25 Anion Gap 16 BUN 11 Creatinine 0.9 Est GFR ( Amer) > 60 Est GFR (Non-Af Amer) > 60 POC Glucose (mg/dL) 135 H 193 H Random Glucose 159 H Calcium 9.1 Prostate Specific Ag 0.110 Venous Blood Potassium Assessment & Plan (1) Back pain Status: Acute (2) Complicated UTI (urinary tract infection) Status: Acute (3) Dyspnea Status: Acute (4) Compression fracture Status: Acute (5) Diabetes mellitus Status: Acute - Assessment and Plan (Free Text) Assessment: consider gu eval may need fci iv antibiotic rx for recurrent uti recc- imaging of kidneys / bladder consider CT abd/pelvis agree with Merrem
[2017-12-30] MEDS ORDERED: Sodium Chloride 0.9% 100 ML ONE (16:52)
[2017-12-30] MEDS ORDERED: Iohexol 300 100 ML IJ ONE (16:52)
--- NOTE | 2017-12-30 18:07 | CT ---
PROCEDURE: CT Abdomen and Pelvis with contrast HISTORY: recurrent utis, pain COMPARISON: None. TECHNIQUE: Contrast dose: 95 mL Omnipaque 300 Radiation dose: Total exam DLP = 1070.52 mGy-cm. This CT exam was performed using one or more of the following dose reduction techniques: Automated exposure control, adjustment of the mA and/or kV according to patient size, and/or use of iterative reconstruction technique. FINDINGS: LOWER THORAX: Unremarkable. LIVER: Unremarkable. No gross lesion or ductal dilatation. GALLBLADDER AND BILE DUCTS: Unremarkable. PANCREAS: Unremarkable. No gross lesion or ductal dilatation. SPLEEN: Unremarkable. ADRENALS: Unremarkable. No mass. KIDNEYS AND URETERS: 1.3 cm mid left renal cortical cyst, 16 Hounsfield units. No other renal mass. No calculus or hydronephrosis. VASCULATURE: Unremarkable. No aortic aneurysm. BOWEL: Unremarkable. No obstruction. No gross mural thickening. APPENDIX: Not identified. No secondary findings. PERITONEUM: Unremarkable. No free fluid. No free air. LYMPH NODES: Unremarkable. No enlarged lymph nodes. BLADDER: Diffusely thickened bladder wall. Mild perivesical haziness. Findings suspicious for acute cystitis. REPRODUCTIVE: Mild prostate enlargement. BONES: Compression fracture of the T12 vertebra, age indeterminate. OTHER FINDINGS: None. IMPRESSION: Compression fracture of T12 vertebra, age indeterminate. Diffusely thickened bladder wall with mild perivesical haziness, suspicious for acute cystitis. Additional minor findings as above.
--- NOTE | 2017-12-30 18:09 | CARD ---
APPROVED REPORT EKG Measurement Heart [id number] <Conclusion> Sinus rhythm with 1st degree AV block Possible Left atrial enlargement Right bundle branch block Abnormal ECG
--- NOTE | 2017-12-30 18:55 | CP.PCM.PN ---
Subjective - Date & Time of Evaluation Date of Evaluation: 12/30/17 Time of Evaluation: 18:45 - Subjective Subjective: Feels a little better. Denies cp, sob, fever or chills. Denies urinary symptoms. Minimal back pain Objective - Vital Signs/Intake and Output Vital Signs (last 24 hours): Temp Pulse Resp BP Pulse Ox 97.9 F 97 H 20 181/99 H 93 L 12/30/17 16:25 12/30/17 16:25 12/30/17 16:25 12/30/17 16:25 12/30/17 16:25 - Medications Medications: Current Medications Enoxaparin Sodium (Lovenox) 40 mg SC DAILY JONATHON PRN Reason: Protocol Last Admin: 12/30/17 08:44 Dose: 40 mg Home Med (Dutasteride [Avodart]) 0.5 mg PO HS JONATHON Meropenem 1 gm/ Sodium (Chloride) 100 mls @ 100 mls/hr IVPB Q8 JONATHON PRN Reason: Protocol Last Admin: 12/30/17 17:04 Dose: 100 mls/hr Insulin Human Lispro (Humalog) 0 units SC ACHS JONATHON PRN Reason: Protocol Last Admin: 12/30/17 17:05 Dose: Not Given Morphine Sulfate (Morphine) 1 mg IVP Q6 PRN PRN Reason: Pain, severe (8-10) Oxycodone/Acetaminophen (Percocet 5/325 Mg Tab) 1 tab PO Q4 PRN PRN Reason: Pain, moderate (4-7) Stop: 01/01/18 20:07 Last Admin: 12/30/17 01:20 Dose: 1 tab - Labs Labs: 12/30/17 04:45 12/30/17 04:45 PT 11.5 Seconds (9.8-13.1) 12/29/17 12:52 INR 1.0 (0.9-1.2) 12/29/17 12:52 APTT 35.9 Seconds (25.6-37.1) 12/29/17 12:52 - Constitutional Appears: Well, No Acute Distress - Head Exam Head Exam: ATRAUMATIC - Respiratory Exam Respiratory Exam: Decreased Breath Sounds, NORMAL BREATHING PATTERN - Cardiovascular Exam Cardiovascular Exam: REGULAR RHYTHM, +S1, +S2 - GI/Abdominal Exam GI & Abdominal Exam: Distended, Soft, Normal Bowel Sounds - Psychiatric Exam Psychiatric exam: Normal Affect - Skin Skin Exam: Normal Color, Warm Assessment and Plan (1) Back pain Status: Acute (2) Urinary tract infection Status: Acute (3) Diabetes mellitus Status: Chronic (4) Hypertension Status: Chronic (5) Prostate CA Status: Chronic - Assessment and Plan (Free Text) Assessment: 82 year old male with UTI Plan: Continue IV Merrem ID consult appreciated continue all meds dvt prophylaxis f/u cultures
[2017-12-31] MEDS: Meropenem 1 GM in Sodium Chloride 0.9% 100 ML IVPB SCH ×3 (00:17→16:46)
[2017-12-31] MEDS: Insulin Lispro (humaLOG) 100 Units/ml Inj SC SCH ×4 (06:40→22:33)
[2017-12-31] MEDS: Enoxaparin 40 mg Syringe SC SCH (09:03)
--- NOTE | 2017-12-31 23:27 | CP.PCM.PN ---
Subjective - Date & Time of Evaluation Date of Evaluation: 12/31/17 Time of Evaluation: 17:35 - Subjective Subjective: Feel better, ambulating to bathroom. denies urinary symptoms denies cp, sob, f/c. son at bedside Objective - Vital Signs/Intake and Output Vital Signs (last 24 hours): Temp Pulse Resp BP Pulse Ox 97.8 F 94 H 20 169/79 H 93 L 12/31/17 19:17 12/31/17 21:34 12/31/17 19:17 12/31/17 21:34 12/31/17 19:17 - Medications Medications: Current Medications Amlodipine Besylate (Norvasc) 10 mg PO DAILY [facility] Last Admin: 12/31/17 21:34 Dose: 10 mg Enoxaparin Sodium (Lovenox) 40 mg SC DAILY [facility] PRN Reason: Protocol Last Admin: 12/31/17 09:03 Dose: 40 mg Home Med (Dutasteride [Avodart]) 0.5 mg PO HS [facility] Meropenem 1 gm/ Sodium (Chloride) 100 mls @ 100 mls/hr IVPB Q8 [facility] PRN Reason: Protocol Last Admin: 12/31/17 16:46 Dose: 100 mls/hr Insulin Human Lispro (Humalog) 0 units SC ACHS [facility] PRN Reason: Protocol Last Admin: 12/31/17 22:33 Dose: Not Given Morphine Sulfate (Morphine) 1 mg IVP Q6 PRN PRN Reason: Pain, severe (8-10) Oxycodone/Acetaminophen (Percocet 5/325 Mg Tab) 1 tab PO Q4 PRN PRN Reason: Pain, moderate (4-7) Stop: 01/01/18 20:07 Last Admin: 12/30/17 01:20 Dose: 1 tab - Labs Labs: 12/30/17 04:45 12/30/17 04:45 PT 11.5 Seconds (9.8-13.1) 12/29/17 12:52 INR 1.0 (0.9-1.2) 12/29/17 12:52 APTT 35.9 Seconds (25.6-37.1) 12/29/17 12:52 - Constitutional Appears: Well, No Acute Distress - Head Exam Head Exam: ATRAUMATIC - Respiratory Exam Respiratory Exam: Decreased Breath Sounds, NORMAL BREATHING PATTERN - Cardiovascular Exam Cardiovascular Exam: REGULAR RHYTHM, +S1, +S2 - GI/Abdominal Exam GI & Abdominal Exam: Distended, Soft, Normal Bowel Sounds - Neurological Exam Neurological Exam: Alert, Oriented x3 - Psychiatric Exam Psychiatric exam: Normal Affect, Normal Mood - Skin Skin Exam: Normal Color, Warm Assessment and Plan (1) Back pain Status: Acute (2) Urinary tract infection Status: Acute (3) Diabetes mellitus Status: Chronic (4) Hypertension Status: Chronic (5) Prostate CA Status: Chronic - Assessment and Plan (Free Text) Assessment: 82 year old with recurrent uti Plan: Urine E coli, ESBL positive continue Merrem ID consult appreciated continue all meds
[2018-01-01] MEDS: Meropenem 1 GM in Sodium Chloride 0.9% 100 ML IVPB SCH ×3 (01:45→16:32)
[2018-01-01] MEDS: Insulin Lispro (humaLOG) 100 Units/ml Inj SC SCH ×4 (06:31→22:00)
[2018-01-01] MEDS: Enoxaparin 40 mg Syringe SC SCH (08:51)
--- NOTE | 2018-01-01 11:45 | CP.PCM.PN ---
Subjective - Date & Time of Evaluation Date of Evaluation: 01/01/18 Time of Evaluation: 09:00 - Subjective Subjective: afebrile alert CT shows cystitis will Need eval at some pointg cont iv rx for 14 days min Objective - Vital Signs/Intake and Output Vital Signs (last 24 hours): Temp Pulse Resp BP Pulse Ox 97.5 F L 89 18 175/98 H 94 L 01/01/18 07:45 01/01/18 08:52 01/01/18 07:45 01/01/18 08:52 01/01/18 07:45 - Medications Medications: Current Medications Amlodipine Besylate (Norvasc) 10 mg PO DAILY [facility] Last Admin: 01/01/18 08:52 Dose: 10 mg Enoxaparin Sodium (Lovenox) 40 mg SC DAILY [facility] PRN Reason: Protocol Last Admin: 01/01/18 08:51 Dose: 40 mg Home Med (Dutasteride [Avodart]) 0.5 mg PO HS [facility] Meropenem 1 gm/ Sodium (Chloride) 100 mls @ 100 mls/hr IVPB Q8 [facility] PRN Reason: Protocol Last Admin: 01/01/18 08:53 Dose: 100 mls/hr Insulin Human Lispro (Humalog) 0 units SC ACHS [facility] PRN Reason: Protocol Last Admin: 01/01/18 06:31 Dose: Not Given Morphine Sulfate (Morphine) 1 mg IVP Q6 PRN PRN Reason: Pain, severe (8-10) Oxycodone/Acetaminophen (Percocet 5/325 Mg Tab) 1 tab PO Q4 PRN PRN Reason: Pain, moderate (4-7) Stop: 01/01/18 20:07 Last Admin: 12/30/17 01:20 Dose: 1 tab - Labs Labs: 12/30/17 04:45 12/30/17 04:45 PT 11.5 Seconds (9.8-13.1) 12/29/17 12:52 INR 1.0 (0.9-1.2) 12/29/17 12:52 APTT 35.9 Seconds (25.6-37.1) 12/29/17 12:52 - Constitutional Appears: Non-toxic, Chronically Ill - Head Exam Head Exam: NORMOCEPHALIC - Eye Exam Eye Exam: absent: Scleral icterus - ENT Exam ENT Exam: Mucous Membranes Dry - Neck Exam Neck Exam: absent: Lymphadenopathy - Respiratory Exam Respiratory Exam: Decreased Breath Sounds, Clear to Ausculation Bilateral - Cardiovascular Exam Cardiovascular Exam: REGULAR RHYTHM, +S1, +S2 - GI/Abdominal Exam GI & Abdominal Exam: Distended - Rectal Exam Rectal Exam: Deferred - Exam Exam: NORMAL INSPECTION - Extremities Exam Extremities Exam: absent: Pedal Edema - Back Exam Back Exam: absent: CVA tenderness (L), CVA tenderness (R) - Neurological Exam Neurological Exam: Alert, Awake, CN II-XII Intact - Psychiatric Exam Psychiatric exam: Depressed - Skin Skin Exam: Dry Assessment and Plan (1) Back pain Status: Acute (2) Complicated UTI (urinary tract infection) Status: Acute (3) Dyspnea Status: Acute (4) Compression fracture Status: Acute (5) Diabetes mellitus Status: Acute - Assessment and Plan (Free Text) Assessment: recc eval cont iv rx 14 days min then ? Po
--- NOTE | 2018-01-01 22:06 | CP.PCM.PN ---
Subjective - Date & Time of Evaluation Date of Evaluation: 01/01/18 Time of Evaluation: 21:10 - Subjective Subjective: feels better, no sob or chest pain. denies fever or chills denies urinary symptoms. Objective - Vital Signs/Intake and Output Vital Signs (last 24 hours): Temp Pulse Resp BP Pulse Ox 97.3 F L 89 20 157/76 H 93 L 01/01/18 19:23 01/01/18 19:23 01/01/18 19:23 01/01/18 19:23 01/01/18 19:23 - Medications Medications: Current Medications Amlodipine Besylate (Norvasc) 10 mg PO DAILY [facility] Last Admin: 01/01/18 08:52 Dose: 10 mg Enoxaparin Sodium (Lovenox) 40 mg SC DAILY [facility] PRN Reason: Protocol Last Admin: 01/01/18 08:51 Dose: 40 mg Home Med (Dutasteride [Avodart]) 0.5 mg PO HS [facility] Meropenem 1 gm/ Sodium (Chloride) 100 mls @ 100 mls/hr IVPB Q8 [facility] PRN Reason: Protocol Last Admin: 01/01/18 16:32 Dose: 100 mls/hr Insulin Human Lispro (Humalog) 0 units SC ACHS [facility] PRN Reason: Protocol Last Admin: 01/01/18 16:31 Dose: Not Given - Labs Labs: 12/30/17 04:45 12/30/17 04:45 PT 11.5 Seconds (9.8-13.1) 12/29/17 12:52 INR 1.0 (0.9-1.2) 12/29/17 12:52 APTT 35.9 Seconds (25.6-37.1) 12/29/17 12:52 - Constitutional Appears: Well, No Acute Distress - Head Exam Head Exam: ATRAUMATIC, NORMOCEPHALIC - Respiratory Exam Respiratory Exam: Decreased Breath Sounds, NORMAL BREATHING PATTERN - Cardiovascular Exam Cardiovascular Exam: REGULAR RHYTHM, +S1, +S2 - GI/Abdominal Exam GI & Abdominal Exam: Distended, Soft, Normal Bowel Sounds - Neurological Exam Neurological Exam: Alert, Oriented x3 - Psychiatric Exam Psychiatric exam: Normal Affect, Normal Mood - Skin Skin Exam: Normal Color, Warm Assessment and Plan (1) Back pain Status: Acute (2) Urinary tract infection Status: Acute (3) Diabetes mellitus Status: Chronic (4) Hypertension Status: Chronic (5) Prostate CA Status: Chronic - Assessment and Plan (Free Text) Assessment: 82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
[2018-01-02] MEDS: Meropenem 1 GM in Sodium Chloride 0.9% 100 ML IVPB SCH ×3 (00:39→16:30)
[2018-01-02] MEDS: Insulin Lispro (humaLOG) 100 Units/ml Inj SC SCH ×4 (06:35→22:00)
[2018-01-02] MEDS: Enoxaparin 40 mg Syringe SC SCH (09:03)
--- NOTE | 2018-01-02 11:38 | CP.PCM.PN ---
Subjective - Date & Time of Evaluation Date of Evaluation: 01/02/18 Time of Evaluation: 08:00 - Subjective Subjective: afeb on merrem no PO alternative cont rx eval Objective - Vital Signs/Intake and Output Vital Signs (last 24 hours): Temp Pulse Resp BP Pulse Ox 97.8 F 82 18 160/80 H 95 01/02/18 07:56 01/02/18 09:03 01/02/18 07:56 01/02/18 09:03 01/02/18 07:56 - Medications Medications: Current Medications Amlodipine Besylate (Norvasc) 10 mg PO DAILY [facility] Last Admin: 01/02/18 09:03 Dose: 10 mg Home Med (Dutasteride [Avodart]) 0.5 mg PO HS [facility] Meropenem 1 gm/ Sodium (Chloride) 100 mls @ 100 mls/hr IVPB Q8 [facility] PRN Reason: Protocol Last Admin: 01/02/18 09:04 Dose: 100 mls/hr Insulin Human Lispro (Humalog) 0 units SC ACHS [facility] PRN Reason: Protocol Last Admin: 01/02/18 06:35 Dose: Not Given - Labs Labs: 12/30/17 04:45 12/30/17 04:45 PT 11.5 Seconds (9.8-13.1) 12/29/17 12:52 INR 1.0 (0.9-1.2) 12/29/17 12:52 APTT 35.9 Seconds (25.6-37.1) 12/29/17 12:52 - Constitutional Appears: Non-toxic, Chronically Ill - Head Exam Head Exam: NORMOCEPHALIC - Eye Exam Eye Exam: PERRL - ENT Exam ENT Exam: Mucous Membranes Dry - Neck Exam Neck Exam: absent: Lymphadenopathy - Respiratory Exam Respiratory Exam: Decreased Breath Sounds - Cardiovascular Exam Cardiovascular Exam: REGULAR RHYTHM - GI/Abdominal Exam GI & Abdominal Exam: Distended Assessment and Plan (1) Back pain Status: Acute (2) Complicated UTI (urinary tract infection) Status: Acute (3) Dyspnea Status: Acute (4) Compression fracture Status: Acute (5) Diabetes mellitus Status: Acute
[2018-01-02 12:54] LABS: HEMOGLOBIN 14.8 g/dL (12.0-18.0); MEAN CELL VOLUME 86.5 fl (80.0-94.0); MEAN CORPUSCULAR HEMOGLOBIN 29.2 pg (27.0-31.0); MEAN CORPUSCULAR HGB CONC 33.8 g/dL (33.0-37.0); RBC 5.06 Mil/uL (4.40-5.90); RED CELL DISTRIBUTION WIDTH 15.1 % (11.5-14.5); WHITE BLOOD COUNT 10.7 K/uL (4.8-10.8)
[2018-01-02 13:16] LABS: BLOOD UREA NITROGEN 11 mg/dl (9-20); CALCIUM 9.9 mg/dL (8.4-10.2); GFR AFRICAN-AMERICAN > 60; GFR NON-AFRICAN AMERICAN > 60
--- NOTE | 2018-01-02 23:17 | CP.PCM.PN ---
Subjective - Date & Time of Evaluation Date of Evaluation: 01/02/18 Time of Evaluation: 19:00 - Subjective Subjective: No complains, denies cp, sob, f/v/n/v Denies urinary symptoms. ambulating Objective - Vital Signs/Intake and Output Vital Signs (last 24 hours): Temp Pulse Resp BP Pulse Ox 98.1 F 80 20 141/80 93 L 01/02/18 19:31 01/02/18 19:31 01/02/18 19:31 01/02/18 19:31 01/02/18 19:31 - Medications Medications: Current Medications Amlodipine Besylate (Norvasc) 10 mg PO DAILY [facility] Last Admin: 01/02/18 09:03 Dose: 10 mg Home Med (Dutasteride [Avodart]) 0.5 mg PO HS [facility] Meropenem 1 gm/ Sodium (Chloride) 100 mls @ 100 mls/hr IVPB Q8 [facility] PRN Reason: Protocol Last Admin: 01/02/18 16:30 Dose: 100 mls/hr Insulin Human Lispro (Humalog) 0 units SC ACHS [facility] PRN Reason: Protocol Last Admin: 01/02/18 16:38 Dose: Not Given - Labs Labs: 01/02/18 12:30 01/02/18 12:30 PT 11.5 Seconds (9.8-13.1) 12/29/17 12:52 INR 1.0 (0.9-1.2) 12/29/17 12:52 APTT 35.9 Seconds (25.6-37.1) 12/29/17 12:52 - Constitutional Appears: Well, No Acute Distress - Head Exam Head Exam: ATRAUMATIC - Respiratory Exam Respiratory Exam: Decreased Breath Sounds, NORMAL BREATHING PATTERN - Cardiovascular Exam Cardiovascular Exam: REGULAR RHYTHM, +S1, +S2 - GI/Abdominal Exam GI & Abdominal Exam: Distended, Soft, Normal Bowel Sounds - Neurological Exam Neurological Exam: Alert, Oriented x3 - Psychiatric Exam Psychiatric exam: Normal Affect, Normal Mood - Skin Skin Exam: Normal Color, Warm Assessment and Plan (1) Back pain Status: Acute (2) Complicated UTI (urinary tract infection) Status: Acute (3) Diabetes mellitus Status: Chronic (4) Hypertension Status: Chronic (5) Prostate CA Status: Chronic - Assessment and Plan (Free Text) Assessment: 82 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
[2018-01-03] MEDS: Meropenem 1 GM in Sodium Chloride 0.9% 100 ML IVPB SCH ×3 (00:08→16:38)
[2018-01-03] MEDS: Insulin Lispro (humaLOG) 100 Units/ml Inj SC SCH ×4 (07:32→21:31)
[2018-01-03] MEDS ORDERED: Enoxaparin 40 mg Syringe SC SCH (11:30)
--- NOTE | 2018-01-03 11:44 | CP.PCM.PN ---
Subjective - Date & Time of Evaluation Date of Evaluation: 01/03/18 Time of Evaluation: 08:00 - Subjective Subjective: + ESBL urine iv rx in progress Objective - Vital Signs/Intake and Output Vital Signs (last 24 hours): Temp Pulse Resp BP Pulse Ox 97.5 F L 78 20 150/80 93 L 01/03/18 08:00 01/03/18 09:21 01/03/18 08:00 01/03/18 09:21 01/03/18 08:00 - Medications Medications: Current Medications Amlodipine Besylate (Norvasc) 10 mg PO DAILY [facility] Last Admin: 01/03/18 09:21 Dose: 10 mg Enoxaparin Sodium (Lovenox) 40 mg SC DAILY [facility] PRN Reason: Protocol Home Med (Dutasteride [Avodart]) 0.5 mg PO HS [facility] Meropenem 1 gm/ Sodium (Chloride) 100 mls @ 100 mls/hr IVPB Q8 [facility] PRN Reason: Protocol Last Admin: 01/03/18 09:22 Dose: 100 mls/hr Insulin Human Lispro (Humalog) 0 units SC ACHS [facility] PRN Reason: Protocol Last Admin: 01/03/18 07:32 Dose: Not Given - Labs Labs: 01/02/18 12:30 01/02/18 12:30 PT 11.5 Seconds (9.8-13.1) 12/29/17 12:52 INR 1.0 (0.9-1.2) 12/29/17 12:52 APTT 35.9 Seconds (25.6-37.1) 12/29/17 12:52 - Constitutional Appears: Non-toxic, Chronically Ill - Head Exam Head Exam: NORMOCEPHALIC - Eye Exam Eye Exam: PERRL - ENT Exam ENT Exam: Mucous Membranes Dry - Neck Exam Neck Exam: absent: Lymphadenopathy - Respiratory Exam Respiratory Exam: Decreased Breath Sounds - Cardiovascular Exam Cardiovascular Exam: REGULAR RHYTHM - GI/Abdominal Exam GI & Abdominal Exam: Distended Assessment and Plan (1) Back pain Status: Acute (2) Complicated UTI (urinary tract infection) Status: Acute (3) Dyspnea Status: Acute (4) Compression fracture Status: Acute (5) Diabetes mellitus Status: Chronic - Assessment and Plan (Free Text) Assessment: consider [facility] or TCU
[2018-01-03 19:55] VITALS: BP 163/83; PULSE 80; RESP 18; TEMP 98; O2SAT 97
--- NOTE | 2018-01-03 22:04 | CP.PCM.PN ---
Subjective - Date & Time of Evaluation Date of Evaluation: 01/03/18 Objective - Vital Signs/Intake and Output Vital Signs (last 24 hours): Temp Pulse Resp BP Pulse Ox 98.0 F 80 18 163/83 H 97 01/03/18 19:55 01/03/18 20:51 01/03/18 19:55 01/03/18 19:55 01/03/18 19:55 - Medications Medications: Current Medications Amlodipine Besylate (Norvasc) 10 mg PO DAILY [facility] Last Admin: 01/03/18 09:21 Dose: 10 mg Enoxaparin Sodium (Lovenox) 40 mg SC DAILY [facility] PRN Reason: Protocol Last Admin: 01/03/18 16:39 Dose: 40 mg Home Med (Dutasteride [Avodart]) 0.5 mg PO HS [facility] Meropenem 1 gm/ Sodium (Chloride) 100 mls @ 100 mls/hr IVPB Q8 [facility] PRN Reason: Protocol Last Admin: 01/03/18 16:38 Dose: 100 mls/hr Insulin Human Lispro (Humalog) 0 units SC ACHS [facility] PRN Reason: Protocol Last Admin: 01/03/18 21:31 Dose: Not Given - Labs Labs: 01/02/18 12:30 01/02/18 12:30 PT 11.5 Seconds (9.8-13.1) 12/29/17 12:52 INR 1.0 (0.9-1.2) 12/29/17 12:52 APTT 35.9 Seconds (25.6-37.1) 12/29/17 12:52 Assessment and Plan (1) Back pain Status: Acute (2) Urinary tract infection Status: Acute (3) Diabetes mellitus Status: Chronic (4) Hypertension Status: Chronic (5) Prostate CA Status: Chronic
--- NOTE | 2018-01-04 20:00 | CP.PCM.DIS ---
Provider - Provider Date of Admission: 12/29/17 16:38 Attending physician: Michel Reece MD Diagnosis - Discharge Diagnosis (1) Back pain Status: Acute Priority: Medium (2) Urinary tract infection Status: Acute Priority: High (3) Diabetes mellitus Status: Chronic Priority: Low (4) Hypertension Status: Chronic Priority: Low (5) Prostate CA Status: Chronic Hospital Course - Lab Results Lab Results: Micro Results 12/29/17 16:05 Blood-Venous Blood Culture - Final NO GROWTH AFTER 5 DAYS 12/29/17 16:05 Blood-Venous Gram Stain - Final TEST NOT PERFORMED 12/29/17 12:08 Urine,Clean Catch Urine Culture - Final Escherichia Coli Most Recent Lab Values WBC 10.7 K/uL (4.8-10.8) 01/02/18 12:30 RBC 5.06 Mil/uL (4.40-5.90) 01/02/18 12:30 Hgb 14.8 g/dL (12.0-18.0) D 01/02/18 12:30 Hct 43.8 % (35.0-51.0) 01/02/18 12:30 MCV 86.5 fl (80.0-94.0) 01/02/18 12:30 MCH 29.2 pg (27.0-31.0) 01/02/18 12:30 MCHC 33.8 g/dL (33.0-37.0) 01/02/18 12:30 RDW 15.1 % (11.5-14.5) H 01/02/18 12:30 Plt Count 276 K/uL (130-400) 01/02/18 12:30 MPV 7.7 fl (7.2-11.7) 12/29/17 12:52 Neut % (Auto) 74.9 % (50.0-75.0) 12/29/17 12:52 Lymph % (Auto) 15.9 % (20.0-40.0) L 12/29/17 12:52 Dickey % (Auto) 7.2 % (0.0-10.0) 12/29/17 12:52 Eos % (Auto) 1.3 % (0.0-4.0) 12/29/17 12:52 Baso % (Auto) 0.7 % (0.0-2.0) 12/29/17 12:52 Neut # (Auto) 7.8 K/uL (1.8-7.0) H 12/29/17 12:52 Lymph # (Auto) 1.7 K/uL (1.0-4.3) 12/29/17 12:52 Dickey # (Auto) 0.7 K/uL (0.0-0.8) 12/29/17 12:52 Eos # (Auto) 0.1 K/uL (0.0-0.7) 12/29/17 12:52 Baso # (Auto) 0.1 K/uL (0.0-0.2) 12/29/17 12:52 PT 11.5 Seconds (9.8-13.1) 12/29/17 12:52 INR 1.0 (0.9-1.2) 12/29/17 12:52 APTT 35.9 Seconds (25.6-37.1) 12/29/17 12:52 D-Dimer, Quantitative 343 ng/mlDDU (0-230) H 12/29/17 12:52 pO2 19 mm/Hg (30-55) L 12/29/17 16:15 VBG pH 7.38 (7.32-7.43) 12/29/17 16:15 VBG pCO2 58 mmHg (40-60) 12/29/17 16:15 VBG HCO3 28.7 mmol/L 12/29/17 16:15 VBG Total CO2 36.1 mmol/L (22-28) H 12/29/17 16:15 VBG O2 Sat (Calc) 34.5 % (40-65) L 12/29/17 16:15 VBG Base Excess 7.3 mmol/L (0.0-2.0) H 12/29/17 16:15 VBG Potassium 3.7 mmol/L (3.6-5.2) 12/29/17 16:15 Sodium 134.0 mmol/L (132-148) 12/29/17 16:15 Chloride 101.0 mmol/L (98-107) 12/29/17 16:15 Glucose 116 mg/dL (75-110) H 12/29/17 16:15 Lactate 1.1 mmol/L (0.7-2.1) 12/29/17 16:15 FiO2 21.0 % 12/29/17 16:15 Sodium 138 mmol/l (132-148) 01/02/18 12:30 Potassium 4.0 MMOL/L (3.6-5.0) 01/02/18 12:30 Chloride 94 mmol/L (98-107) L 01/02/18 12:30 Carbon Dioxide 30 mmol/L (22-30) 01/02/18 12:30 Anion Gap 18 (10-20) 01/02/18 12:30 BUN 11 mg/dl (9-20) 01/02/18 12:30 Creatinine 0.8 mg/dl (0.8-1.5) 01/02/18 12:30 Est GFR ( Amer) > 60 01/02/18 12:30 Est GFR (Non-Af Amer) > 60 01/02/18 12:30 POC Glucose (mg/dL) 105 mg/dL (65-110) 01/03/18 21:20 Random Glucose 148 mg/dL (75-110) H 01/02/18 12:30 Calcium 9.9 mg/dL (8.4-10.2) 01/02/18 12:30 Magnesium 1.9 MG/DL (1.6-2.3) 12/29/17 12:52 Total Bilirubin 0.5 mg/dl (0.2-1.3) 12/29/17 12:52 AST 29 U/L (17-59) 12/29/17 12:52 ALT 29 U/L (21-72) 12/29/17 12:52 Alkaline Phosphatase 166 U/L (38-126) H 12/29/17 12:52 Troponin I 0.0190 ng/mL (0.00-0.120) 12/29/17 12:52 NT-Pro-B Natriuret Pep 406 pg/ml (0-900) 12/29/17 12:52 Total Protein 8.9 G/DL (6.3-8.2) H 12/29/17 12:52 Albumin 3.9 g/dL (3.5-5.0) 12/29/17 12:52 Globulin 5.0 gm/dL (2.2-3.9) H 12/29/17 12:52 Albumin/Globulin Ratio 0.8 (1.0-2.1) L 12/29/17 12:52 Lipase 45 U/L (23-300) 12/29/17 12:52 Prostate Specific Ag 0.110 ng/ML (0.00-4.0) 12/30/17 04:45 Venous Blood Potassium 3.7 mmol/L (3.6-5.2) 12/29/17 16:15 Urine Color Kylie (YELLOW) 12/29/17 12:08 Urine Clarity Turbid (Clear) 12/29/17 12:08 Urine pH 6.0 (5.0-8.0) 12/29/17 12:08 Ur Specific Brunson 1.006 (1.003-1.030) 12/29/17 12:08 Urine Protein 30 mg/dL (NEGATIVE) 12/29/17 12:08 Urine Glucose (UA) Neg mg/dL (Normal) 12/29/17 12:08 Urine Ketones Negative mg/dL (NEGATIVE) 12/29/17 12:08 Urine Blood Moderate (NEGATIVE) 12/29/17 12:08 Urine Nitrate Positive (NEGATIVE) H 12/29/17 12:08 Urine Bilirubin Negative (NEGATIVE) 12/29/17 12:08 Urine Urobilinogen 0.2-1.0 mg/dL (0.2-1.0) 12/29/17 12:08 Ur Leukocyte Esterase Large Lillie/uL (Negative) 12/29/17 12:08 Urine RBC (Auto) 29 /hpf (0-3) H 12/29/17 12:08 Urine WBC Clumps (Auto) Many /hpf (NONE) H 12/29/17 12:08 Urine Microscopic WBC 1195 /hpf (0-5) H 12/29/17 12:08 Ur Renal Epithelial Cell 1 /hpf (0-3) 12/29/17 12:08 Urine Bacteria Rare (<OCC) 12/29/17 12:08 - Hospital Course Hospital Course: 82 year old male admitted for recurrent complicated uti. Pt was treated with IV abx and tolerated well. Pt was discharged to TCU for completion of abx treatment Discharge Exam - Head Exam Head Exam: ATRAUMATIC - Respiratory Exam Respiratory Exam: Decreased Breath Sounds - Cardiovascular Exam Cardiovascular Exam: RRR - GI/Abdominal Exam GI & Abdominal Exam: Normal Bowel Sounds - Neurological Exam Neurological exam: Alert, Oriented x3 - Skin Skin Exam: Normal Color Discharge Plan - Discharge Medications Prescriptions: Meropenem IV 1 gm in NS [Merrem IV 1 gm Premix] 1 gm IVPB Q8 #21 bag - Follow Up Plan Condition: STABLE Disposition: REHAB FACILITY/REHAB UNIT Additional Instructions: pt. cleared for discharge to TCU today by cont. Merrem Iv cont. PT/OT Referrals: Dashawn Davenport MD [Staff Provider] - Michel Reece MD [Staff Provider] -
== END 2018-01-03 23:17 | DRG 321 ==
LOC: H.ER 10:28 → H.ERHOLD 16:38 → H.TEL 18:34
PROVIDERS: ADMIT Internal Medicine; ATTEND Internal Medicine
DX: N30.90 Cystitis, unspecified without hematuria (principal); E11.9 Type 2 diabetes mellitus without complications; B96.20 Unspecified Escherichia coli [E. coli] as the cause of diseases classified elsewhere; I10 Essential (primary) hypertension; M19.90 Unspecified osteoarthritis, unspecified site; M48.54XD Collapsed vertebra, not elsewhere classified, thoracic region, subsequent encounter for fracture with routine healing; Z85.46 Personal history of malignant neoplasm of prostate

== ENCOUNTER 2018-01-03 15:02 | Inpatient (IN) | payer MEDICAID ==
[2018-01-03 22:49] VITALS: BMI 29.0
[2018-01-04 01:04] VITALS: RESP 20
[2018-01-04] MEDS: Meropenem 1 GM in Sodium Chloride 0.9% 100 ML IVPB SCH ×3 (04:31→20:40)
[2018-01-04] MEDS ORDERED: Meropenem 500 MG in Sodium Chloride 0.9% 100 ML IVPB SCH (05:00)
[2018-01-04 06:19] LABS: HEMOGLOBIN 14.1 g/dL (12.0-18.0); MEAN CELL VOLUME 86.8 fl (80.0-94.0); MEAN CORPUSCULAR HEMOGLOBIN 28.8 pg (27.0-31.0); MEAN CORPUSCULAR HGB CONC 33.2 g/dL (33.0-37.0); RBC 4.89 Mil/uL (4.40-5.90); RED CELL DISTRIBUTION WIDTH 15.5 % (11.5-14.5); WHITE BLOOD COUNT 10.1 K/uL (4.8-10.8)
[2018-01-04 06:33] LABS: PROTHROMBIN TIME 11.1 Seconds (9.8-13.1)
[2018-01-04] MEDS: Insulin Lispro (humaLOG) 100 Units/ml Inj SC SCH ×4 (06:58→21:48)
[2018-01-04] MEDS: Enoxaparin 40 mg Syringe SC SCH (09:47)
[2018-01-04] MEDS: Acetaminophen-Codeine 300/30 mg Tab PO PRN (20:48)
--- NOTE | 2018-01-04 22:48 | CP.PCM.HP ---
History of Present Illness - History of Present Illness History of Present Illness: Cc: Urinary tract infection 82 year old male with pmhx of HTN, DM, prostate ca, recurrent UTIs, and chronic back pain following a fall about 2 months who is admitted to the transitional care unit for continuation of IV antibiotics following a hospital admission for complicated UTI. In hospital, the patient was noted to have ESBL resistant uti. The patient was started on IV abx and is now on TCU for continued therapy. Denies dysuria, hematuria or any other urinary symptoms. Denies chest pain, sob , fever, chills, nausea, vomiting, weakness or headache. Present on Admission - Present on Admission Any Indicators Present on Admission: No Review of Systems - Review of Systems All systems: reviewed and no additional remarkable complaints except (as stated) - Constitutional Constitutional: As Per HPI - Cardiovascular Cardiovascular: As Per HPI - Respiratory Respiratory: As Per HPI - Gastrointestinal Gastrointestinal: As Per HPI - Genitourinary Genitourinary: As Per HPI Past Patient History - Infectious Disease Hx of Infectious Diseases: None - Past Medical History & Family History Past Medical History?: Yes - Past Social History Smoking Status: Never Smoked - CARDIAC Hx Cardiac Disorders: Yes Hx Hypertension: Yes - PULMONARY Hx Respiratory Disorders: No - NEUROLOGICAL Hx Neurological Disorder: No - HEENT Hx HEENT Problems: No - RENAL Hx Chronic Kidney Disease: No - ENDOCRINE/METABOLIC Hx Endocrine Disorders: Yes Hx Diabetes Mellitus Type 2: Yes - HEMATOLOGICAL/ONCOLOGICAL Hx Blood Disorders: Yes Hx AIDS: No Hx Cancer: Yes (prostate) Hx Human Immunodeficiency Virus (HIV): No - INTEGUMENTARY Hx Dermatological Problems: No - MUSCULOSKELETAL/RHEUMATOLOGICAL Hx Musculoskeletal Disorders: Yes Hx Arthritis: Yes Hx Back Pain: Yes Hx Falls: Yes - GASTROINTESTINAL Hx Gastrointestinal Disorders: No - GENITOURINARY/GYNECOLOGICAL Hx Genitourinary Disorders: No - PSYCHIATRIC Hx Psychophysiologic Disorder: No Hx Substance Use: No - SURGICAL HISTORY Hx Surgeries: Yes Hx Cataract Extraction: Yes (bilateral) Other/Comment: Prostatectomy - ANESTHESIA Hx Anesthesia: Yes Hx Anesthesia Reactions: No Hx Malignant Hyperthermia: No Meds Allergies/Adverse Reactions: Allergies Allergy/AdvReac Type Severity Reaction Status Date / Time No Known Allergies Allergy Verified 01/27/17 22:33 Physical Exam - Constitutional Appears: Well, No Acute Distress - Head Exam Head Exam: ATRAUMATIC - Eye Exam Eye Exam: EOMI, Normal appearance, PERRL Pupil Exam: NORMAL ACCOMODATION - ENT Exam ENT Exam: Mucous Membranes Moist, Normal Exam - Neck Exam Neck exam: Positive for: Full Rom, Normal Inspection - Respiratory Exam Respiratory Exam: Decreased Breath Sounds, NORMAL BREATHING PATTERN - Cardiovascular Exam Cardiovascular Exam: REGULAR RHYTHM, +S1, +S2 - GI/Abdominal Exam GI & Abdominal Exam: Distended, Normal Bowel Sounds, Soft - Rectal Exam Rectal Exam: Deferred - Extremities Exam Extremities exam: Positive for: full ROM, normal inspection - Back Exam Back exam: NORMAL INSPECTION, tenderness (lower back) - Neurological Exam Neurological exam: Alert, Oriented x3 - Psychiatric Exam Psychiatric exam: Normal Affect, Normal Mood - Skin Skin Exam: Normal Color, Warm Results - Vital Signs Recent Vital Signs: Last Vital Signs Temp 97.7 F 01/04/18 21:51 Pulse 88 01/04/18 21:51 Resp 20 01/04/18 21:51 BP 151/74 H 01/04/18 21:51 Pulse Ox 93 L 01/04/18 21:51 - Labs Result Diagrams: 01/10/18 17:58 01/10/18 17:58 Labs: Laboratory Results - last 24 hr 01/04/18 01/04/18 01/04/18 05:15 05:15 05:58 WBC 10.1 RBC 4.89 Hgb 14.1 Hct 42.4 MCV 86.8 MCH 28.8 MCHC 33.2 RDW 15.5 H Plt Count 262 PT 11.1 INR 1.0 POC Glucose (mg/dL) 124 H 01/04/18 01/04/18 01/04/18 10:41 16:08 20:43 WBC RBC Hgb Hct MCV MCH MCHC RDW Plt Count PT INR POC Glucose (mg/dL) 186 H 165 H 123 H Assessment & Plan (1) Compression fracture Status: Chronic (2) Diabetes mellitus Status: Chronic Priority: Medium (3) Complicated UTI (urinary tract infection) Status: Acute Priority: Medium (4) Hypertension Status: Chronic Priority: Low (5) Prostate CA Status: Chronic Priority: Low - Assessment and Plan (Free Text) Assessment: 82 year old with complicated UTI Plan: On IV Merrem Pain Medication PRN PT/OT ID consult Resume previous medications DVT prophylaxis
[2018-01-05] MEDS: Meropenem 1 GM in Sodium Chloride 0.9% 100 ML IVPB SCH ×3 (05:13→21:45)
[2018-01-05] MEDS: Insulin Lispro (humaLOG) 100 Units/ml Inj SC SCH ×4 (06:44→21:46)
[2018-01-05] MEDS: Enoxaparin 40 mg Syringe SC SCH (08:55)
--- NOTE | 2018-01-05 12:45 | CP.PCM.CON ---
History of Present Illness - History of Present Illness History of Present Illness: Pt diagnosed with compression fracture after a fall about 1 month ago. No relief from OTC medication". Was admitted here 12/18/2017 has a mri that shows a superior endplate fracture at t12 with no spinal cord involvement. Readmitted as pt ran out of pain medication ID consulted for recurrent UTI + ESBL denies fever / chills Review of Systems - Constitutional Constitutional: As Per HPI - EENT Eyes: absent: As Per HPI, Blind Spots, Blurred Vision, Change in Vision, Decreased Night Vision, Diplopia, Discharge, Dry Eye, Exophthalmos, Floaters, Irritation, Itchy Eyes, Loss of Peripheral Vision, Pain, Photophobia, Requires Corrective Lenses, Sees Flashes, Spots in Vision, Tunnel Vision, Other Visual Disturbances, Loss of Vision, Other Ears: absent: As Per HPI, Decreased Hearing, Ear Discharge, Ear Pain, Tinnitus, Abnormal Hearing, Disequilibrium, Dizziness, Other Nose/Mouth/Throat: absent: As Per HPI, Epistaxis, Nasal Congestion, Nasal Discharge, Nasal Obstruction, Nasal Trauma, Nose Pain, Post Nasal Drip, Sinus Pain, Sinus Pressure, Bleeding Gums, Change in Voice, Dental Pain, Dry Mouth, Dysphagia, Halitosis, Hoarsness, Lip Swelling, Mouth Lesions, Mouth Pain, Odynophagia, Sore Throat, Throat Swelling, Tongue Swelling, Facial Pain, Neck Pain, Neck Mass, Other - Cardiovascular Cardiovascular: absent: As Per HPI, Acrocyanosis, Chest Pain, Chest Pain at Rest , Chest Pain with Activity, Claudication, Diaphoresis, Dyspnea, Dyspnea on Exertion, Edema, Irregular Heart Rhythm, Pain Radiating to Arm/Neck/Jaw, Leg Edema, Leg Ulcers, Lightheadedness, Orthopnea, Palpitations, Paroxysmal Nocturnal Dyspnea, Pedal Edema, Radiating Pain, Rapid Heart Rate, Slow Heart Rate, Syncope, Other - Respiratory Respiratory: absent: As Per HPI, Cough, Dyspnea, Hemoptysis, Dyspnea on Exertion , Wheezing, Snoring, Stridor, Pain on Inspiration, Chest Congestion, Excessive Mucous Production, Change in Mucous Color, Pain with Coughing, Other - Gastrointestinal Gastrointestinal: absent: As Per HPI, Abdominal Pain, Belching, Bloating, Change in Bowel Habits, Change in Stool Character, Coffee Ground Emesis, Constipation, Cramping, Diarrhea, Dyspepsia, Dysphagia, Early Satiety, Excessive Flatus, Fecal Incontinence, Heartburn, Hematemesis, Hematochezia, Loose Stools, Melena, Nausea, Odynophagia, Temesmus, Vomiting, Other - Genitourinary Genitourinary: As Per HPI - Reproductive: Male Reproductive:Male: As Per HPI - Musculoskeletal Musculoskeletal: As Per HPI - Integumentary Integumentary: absent: As Per HPI, Acne, Alopecia, Bleeding Lesions, Change in Hair, Change in Nails, Change in Pigmentation, Changing Lesions, Dry Skin, Erythema, Furuncle, Hirsutism, Lesions, New Lesions, Non-Healing Lesions, Photosensitivity, Pruritus, Rash, Skin Pain, Skin Ulcer, Sores, Striae, Swelling , Unusual Bruising, Wounds, Jaundice, Other - Neurological Neurological: absent: As Per HPI, Abnormal Gait, Abnormal Hearing, Abnormal Movements, Abnormal Speech, Behavioral Changes, Burning Sensations, Confusion, Convulsions, Disequilibrium, Dizziness, Numbness, Focal Weakness, Frequent Falls , Headaches, Lack of Coordination, Loss of Vision, Memory Loss, Paresthesias, Radicular Pain, Restless Legs, Sensory Deficit, Syncope, Tingling, Tremor, Vertigo, Weakness, Other Visual Disturbances, Other - Psychiatric Psychiatric: absent: As Per HPI, Abnormal Sleep Pattern, Anhedonia, Anxiety, Auditory Hallucinations, Behavioral Changes, Change in Appetite, Change in Libido, Confusion, Depression, Difficulty Concentrating, Hallucinations, Homicidal Ideation, Hopelessness, Irritability, Memory Loss, Mood Swings, Panic Attacks, Paranoia, Suicidal Ideation, Visual Hallucinations, Tactile Hallucinations, Other - Endocrine Endocrine: absent: As Per HPI, Change in Body Appearance, Change in Libido, Cold Intolorance, Deepening of Voice, Excessive Sweating, Fatigue, Flushing, Heat Intolorance, Increase in Ring/Shoe/Hat Size, Palpitations, Polydipsia, Polyphagia, Polyuria, Other - Hematologic/Lymphatic Hematologic: absent: As Per HPI, Easy Bleeding, Easy Bruising, Lymphadenopathy, Other Past Patient History - Infectious Disease Hx of Infectious Diseases: None - Past Medical History & Family History Past Medical History?: Yes - Past Social History Smoking Status: Never Smoked - CARDIAC Hx Cardiac Disorders: Yes Hx Hypertension: Yes - PULMONARY Hx Respiratory Disorders: No - NEUROLOGICAL Hx Neurological Disorder: No - HEENT Hx HEENT Problems: No - RENAL Hx Chronic Kidney Disease: No - ENDOCRINE/METABOLIC Hx Endocrine Disorders: Yes Hx Diabetes Mellitus Type 2: Yes - HEMATOLOGICAL/ONCOLOGICAL Hx Blood Disorders: Yes Hx AIDS: No Hx Cancer: Yes (prostate) Hx Human Immunodeficiency Virus (HIV): No - INTEGUMENTARY Hx Dermatological Problems: No - MUSCULOSKELETAL/RHEUMATOLOGICAL Hx Musculoskeletal Disorders: Yes Hx Arthritis: Yes Hx Back Pain: Yes Hx Falls: Yes - GASTROINTESTINAL Hx Gastrointestinal Disorders: No - GENITOURINARY/GYNECOLOGICAL Hx Genitourinary Disorders: No - PSYCHIATRIC Hx Psychophysiologic Disorder: No Hx Substance Use: No - SURGICAL HISTORY Hx Surgeries: Yes Hx Cataract Extraction: Yes (bilateral) Other/Comment: Prostatectomy - ANESTHESIA Hx Anesthesia: Yes Hx Anesthesia Reactions: No Hx Malignant Hyperthermia: No Meds Allergies/Adverse Reactions: Allergies Allergy/AdvReac Type Severity Reaction Status Date / Time No Known Allergies Allergy Verified 01/27/17 22:33 - Medications Medications: Current Medications Acetaminophen/Codeine Phosphate (Tylenol/Codeine 300 Mg/30 Mg) 1 tab PO Q8 PRN PRN Reason: Pain, severe (8-10) Last Admin: 01/04/18 20:48 Dose: 1 tab Amlodipine Besylate (Norvasc) 10 mg PO DAILY [facility] Last Admin: 01/05/18 08:55 Dose: 10 mg Enoxaparin Sodium (Lovenox) 40 mg SC DAILY [facility] PRN Reason: Protocol Last Admin: 01/05/18 08:55 Dose: 40 mg Home Med (Dutasteride [Avodart]) 0.5 mg PO HS [facility] Meropenem 1 gm/ Sodium (Chloride) 100 mls @ 100 mls/hr IVPB Q8@0500,1300,2100 [facility] PRN Reason: Protocol Last Admin: 01/05/18 05:13 Dose: 100 mls/hr Insulin Human Lispro (Humalog) 0 units SC ACHS [facility] PRN Reason: Protocol Last Admin: 01/05/18 11:17 Dose: 1 unit Physical Exam - Constitutional Appears: Non-toxic, Chronically Ill - Head Exam Head Exam: NORMOCEPHALIC - Eye Exam Eye Exam: PERRL. absent: Scleral icterus - ENT Exam ENT Exam: Mucous Membranes Dry - Neck Exam Neck exam: Negative for: Lymphadenopathy - Respiratory Exam Respiratory Exam: Decreased Breath Sounds - Cardiovascular Exam Cardiovascular Exam: REGULAR RHYTHM - GI/Abdominal Exam GI & Abdominal Exam: Diminished Bowel Sounds - Rectal Exam Rectal Exam: Deferred - Exam Exam: NORMAL INSPECTION - Extremities Exam Extremities exam: Negative for: pedal edema - Back Exam Back exam: absent: CVA tenderness (L), CVA tenderness (R) - Neurological Exam Neurological exam: Alert, CN II-XII Intact, Oriented x3, Reflexes Normal - Psychiatric Exam Psychiatric exam: Depressed - Skin Skin Exam: Dry, Intact Results - Vital Signs Recent Vital Signs: Last Vital Signs Temp 97.9 F 01/05/18 08:15 Pulse 77 01/05/18 08:55 Resp 20 01/05/18 08:15 BP 147/70 01/05/18 08:55 Pulse Ox 97 01/05/18 08:52 - Labs Result Diagrams: 01/04/18 05:15 Labs: Laboratory Results - last 24 hr 01/04/18 01/04/18 01/05/18 16:08 20:43 11:14 POC Glucose (mg/dL) 165 H 123 H 170 H Assessment & Plan (1) Back pain Status: Acute Priority: Medium (2) Cervical spine arthritis Status: Acute (3) Complicated UTI (urinary tract infection) Status: Acute (4) Compression fracture Status: Acute - Assessment and Plan (Free Text) Assessment: cont rx for ESBL in urine follow up
--- NOTE | 2018-01-05 22:51 | CP.PCM.PN ---
Subjective - Date & Time of Evaluation Date of Evaluation: 01/05/18 Time of Evaluation: 14:44 - Subjective Subjective: Feels okay. Denies cp, sob, fever or chills Continue to complain Lower Back pain and Need assistance transferring out of bed. Objective - Vital Signs/Intake and Output Vital Signs (last 24 hours): Temp Pulse Resp BP Pulse Ox 97.7 F 80 20 160/80 H 97 01/05/18 22:05 01/05/18 22:05 01/05/18 22:05 01/05/18 22:05 01/05/18 22:05 - Medications Medications: Current Medications Acetaminophen/Codeine Phosphate (Tylenol/Codeine 300 Mg/30 Mg) 1 tab PO Q8 PRN PRN Reason: Pain, severe (8-10) Last Admin: 01/04/18 20:48 Dose: 1 tab Amlodipine Besylate (Norvasc) 10 mg PO DAILY [facility] Last Admin: 01/05/18 08:55 Dose: 10 mg Enoxaparin Sodium (Lovenox) 40 mg SC DAILY [facility] PRN Reason: Protocol Last Admin: 01/05/18 08:55 Dose: 40 mg Home Med (Dutasteride [Avodart]) 0.5 mg PO HS [facility] Meropenem 1 gm/ Sodium (Chloride) 100 mls @ 100 mls/hr IVPB Q8@0500,1300,2100 [facility] PRN Reason: Protocol Last Admin: 01/05/18 21:45 Dose: 100 mls/hr Insulin Human Lispro (Humalog) 0 units SC ACHS [facility] PRN Reason: Protocol Last Admin: 01/05/18 21:46 Dose: Not Given - Labs Labs: 01/04/18 05:15 PT 11.1 Seconds (9.8-13.1) 01/04/18 05:15 INR 1.0 (0.9-1.2) 01/04/18 05:15 - Constitutional Appears: Well, No Acute Distress - Respiratory Exam Respiratory Exam: Decreased Breath Sounds, NORMAL BREATHING PATTERN - Cardiovascular Exam Cardiovascular Exam: REGULAR RHYTHM, +S1, +S2 - GI/Abdominal Exam GI & Abdominal Exam: Distended, Soft, Normal Bowel Sounds - Neurological Exam Neurological Exam: Alert, Oriented x3 - Psychiatric Exam Psychiatric exam: Normal Affect - Skin Skin Exam: Normal Color, Warm Assessment and Plan (1) Complicated UTI (urinary tract infection) Status: Acute (2) Diabetes mellitus Status: Chronic (3) Hypertension Status: Chronic (4) Prostate CA Status: Chronic - Assessment and Plan (Free Text) Assessment: 82 year old with complicated UTI Plan: On Merrem ID consult appreciated continue medications DVT prophylaxis PT
[2018-01-06] MEDS: Meropenem 1 GM in Sodium Chloride 0.9% 100 ML IVPB SCH ×3 (05:02→20:21)
[2018-01-06] MEDS: Insulin Lispro (humaLOG) 100 Units/ml Inj SC SCH ×4 (06:37→23:00)
[2018-01-06] MEDS: Acetaminophen-Codeine 300/30 mg Tab PO PRN (09:23)
[2018-01-06] MEDS: Enoxaparin 40 mg Syringe SC SCH (09:24)
--- NOTE | 2018-01-06 12:24 | CP.PCM.PN ---
Subjective - Date & Time of Evaluation Date of Evaluation: 01/06/18 Time of Evaluation: 09:00 - Subjective Subjective: Pt diagnosed with compression fracture after a fall about 1 month ago. No relief from OTC medication". Was admitted here 12/18/2017 has a mri that shows a superior endplate fracture at t12 with no spinal cord involvement. Readmitted as pt ran out of pain medication ID consulted for recurrent UTI + ESBL denies fever / chills Objective - Vital Signs/Intake and Output Vital Signs (last 24 hours): Temp Pulse Resp BP Pulse Ox 97.3 F L 88 20 154/69 H 96 01/06/18 08:46 01/06/18 09:23 01/06/18 08:46 01/06/18 09:23 01/06/18 08:46 - Medications Medications: Current Medications Acetaminophen/Codeine Phosphate (Tylenol/Codeine 300 Mg/30 Mg) 1 tab PO Q8 PRN PRN Reason: Pain, severe (8-10) Last Admin: 01/06/18 09:23 Dose: 1 tab Amlodipine Besylate (Norvasc) 10 mg PO DAILY [facility] Last Admin: 01/06/18 09:23 Dose: 10 mg Enoxaparin Sodium (Lovenox) 40 mg SC DAILY [facility] PRN Reason: Protocol Last Admin: 01/06/18 09:24 Dose: 40 mg Home Med (Dutasteride [Avodart]) 0.5 mg PO HS [facility] Meropenem 1 gm/ Sodium (Chloride) 100 mls @ 100 mls/hr IVPB Q8@0500,1300,2100 [facility] PRN Reason: Protocol Last Admin: 01/06/18 05:02 Dose: 100 mls/hr Insulin Human Lispro (Humalog) 0 units SC ACHS [facility] PRN Reason: Protocol Last Admin: 01/06/18 06:37 Dose: Not Given - Labs Labs: 01/04/18 05:15 PT 11.1 Seconds (9.8-13.1) 01/04/18 05:15 INR 1.0 (0.9-1.2) 01/04/18 05:15 - Constitutional Appears: Non-toxic, Chronically Ill - Head Exam Head Exam: NORMOCEPHALIC - Eye Exam Eye Exam: PERRL - ENT Exam ENT Exam: Mucous Membranes Dry - Neck Exam Neck Exam: absent: Lymphadenopathy - Respiratory Exam Respiratory Exam: Decreased Breath Sounds - Cardiovascular Exam Cardiovascular Exam: REGULAR RHYTHM - GI/Abdominal Exam GI & Abdominal Exam: Distended, Soft - Rectal Exam Rectal Exam: Deferred - Exam Exam: NORMAL INSPECTION - Extremities Exam Extremities Exam: absent: Pedal Edema - Back Exam Back Exam: absent: CVA tenderness (L), CVA tenderness (R) - Neurological Exam Neurological Exam: Alert, Awake, Oriented x3 - Psychiatric Exam Psychiatric exam: Normal Mood - Skin Skin Exam: Dry Assessment and Plan (1) Back pain Status: Acute (2) Cervical spine arthritis Status: Acute (3) Complicated UTI (urinary tract infection) Status: Acute (4) Compression fracture Status: Acute - Assessment and Plan (Free Text) Assessment: cont iv rx suggest eval at some point for cysto if not done in past due to findings of bladder wall thickening which is nonspecific and may be due to chronic BPH
--- NOTE | 2018-01-06 23:24 | CP.PCM.PN ---
Subjective - Date & Time of Evaluation Date of Evaluation: 01/06/18 Time of Evaluation: 13:00 - Subjective Subjective: Denies cp, sob, fever or chills Objective - Vital Signs/Intake and Output Vital Signs (last 24 hours): Temp Pulse Resp BP Pulse Ox 97.7 F 80 20 148/69 93 L 01/06/18 19:42 01/06/18 19:42 01/06/18 19:42 01/06/18 19:42 01/06/18 19:42 - Medications Medications: Current Medications Acetaminophen/Codeine Phosphate (Tylenol/Codeine 300 Mg/30 Mg) 1 tab PO Q8 PRN PRN Reason: Pain, severe (8-10) Last Admin: 01/06/18 09:23 Dose: 1 tab Amlodipine Besylate (Norvasc) 10 mg PO DAILY [facility] Last Admin: 01/06/18 09:23 Dose: 10 mg Enoxaparin Sodium (Lovenox) 40 mg SC DAILY [facility] PRN Reason: Protocol Last Admin: 01/06/18 09:24 Dose: 40 mg Home Med (Dutasteride [Avodart]) 0.5 mg PO HS [facility] Meropenem 1 gm/ Sodium (Chloride) 100 mls @ 100 mls/hr IVPB Q8@0500,1300,2100 [facility] PRN Reason: Protocol Last Admin: 01/06/18 20:21 Dose: 100 mls/hr Insulin Human Lispro (Humalog) 0 units SC ACHS [facility] PRN Reason: Protocol Last Admin: 01/06/18 17:37 Dose: Not Given - Labs Labs: 01/04/18 05:15 PT 11.1 Seconds (9.8-13.1) 01/04/18 05:15 INR 1.0 (0.9-1.2) 01/04/18 05:15 - Constitutional Appears: Well, No Acute Distress - Head Exam Head Exam: ATRAUMATIC - Respiratory Exam Respiratory Exam: Decreased Breath Sounds, NORMAL BREATHING PATTERN - Cardiovascular Exam Cardiovascular Exam: REGULAR RHYTHM, +S1, +S2 - GI/Abdominal Exam GI & Abdominal Exam: Distended, Soft, Normal Bowel Sounds - Neurological Exam Neurological Exam: Alert, Oriented x3 - Psychiatric Exam Psychiatric exam: Normal Affect - Skin Skin Exam: Normal Color, Warm Assessment and Plan (1) Complicated UTI (urinary tract infection) Status: Acute (2) Diabetes mellitus Status: Chronic (3) Hypertension Status: Chronic (4) Prostate CA Status: Chronic - Assessment and Plan (Free Text) Assessment: 82 year old with complicated UTI Plan: On Merrem ID consult appreciated continue medications DVT prophylaxis PT
[2018-01-07] MEDS: Meropenem 1 GM in Sodium Chloride 0.9% 100 ML IVPB SCH ×3 (04:13→22:01)
[2018-01-07] MEDS: Insulin Lispro (humaLOG) 100 Units/ml Inj SC SCH ×4 (08:00→21:17)
[2018-01-07 08:49] LABS: SQUAMOUS EPITHIAL 1 /hpf (0-5); URINE BILIRUBIN NEGATIVE (NEGATIVE); URINE BLOOD SMALL (NEGATIVE); URINE CLARITY SLIGHTY-CLOUDY (Clear); URINE COLOR YELLOW (YELLOW); URINE GLUCOSE (UA) 50 mg/dL (Normal); URINE LEUKOCYTE ESTERASE LARGE Leu/uL (Negative); URINE PROTEIN NEGATIVE (NEGATIVE); URINE UROBILINOGEN 0.2-1.0 mg/dL (0.2-1.0)
[2018-01-07] MEDS: Enoxaparin 40 mg Syringe SC SCH (09:01)
--- NOTE | 2018-01-08 00:41 | CP.PCM.PN ---
Subjective - Date & Time of Evaluation Date of Evaluation: 01/07/18 Time of Evaluation: 18:10 - Subjective Subjective: Feels okay. Denies fever or chills Objective - Vital Signs/Intake and Output Vital Signs (last 24 hours): Temp Pulse Resp BP Pulse Ox 97.8 F 76 20 143/67 91 L 01/07/18 20:25 01/07/18 20:25 01/07/18 20:25 01/07/18 20:25 01/07/18 20:25 - Medications Medications: Current Medications Acetaminophen/Codeine Phosphate (Tylenol/Codeine 300 Mg/30 Mg) 1 tab PO Q8 PRN PRN Reason: Pain, moderate (4-7) Amlodipine Besylate (Norvasc) 10 mg PO DAILY [facility] Last Admin: 01/07/18 09:01 Dose: 10 mg Enoxaparin Sodium (Lovenox) 40 mg SC DAILY [facility] PRN Reason: Protocol Home Med (Dutasteride [Avodart]) 0.5 mg PO HS [facility] Meropenem 1 gm/ Sodium (Chloride) 100 mls @ 100 mls/hr IVPB Q8@0500,1300,2100 [facility] PRN Reason: Protocol Last Admin: 01/07/18 22:01 Dose: 100 mls/hr Insulin Human Lispro (Humalog) 0 units SC ACHS [facility] PRN Reason: Protocol Last Admin: 01/07/18 21:17 Dose: Not Given - Labs Labs: 01/04/18 05:15 PT 11.1 Seconds (9.8-13.1) 01/04/18 05:15 INR 1.0 (0.9-1.2) 01/04/18 05:15 - Constitutional Appears: Well, No Acute Distress - Head Exam Head Exam: ATRAUMATIC - Respiratory Exam Respiratory Exam: Decreased Breath Sounds, NORMAL BREATHING PATTERN - Cardiovascular Exam Cardiovascular Exam: REGULAR RHYTHM, +S1, +S2 - GI/Abdominal Exam GI & Abdominal Exam: Distended, Soft, Normal Bowel Sounds - Neurological Exam Neurological Exam: Alert, Oriented x3 - Psychiatric Exam Psychiatric exam: Normal Affect, Normal Mood - Skin Skin Exam: Normal Color, Warm Assessment and Plan (1) Complicated UTI (urinary tract infection) Status: Acute (2) Diabetes mellitus Status: Chronic (3) Hypertension Status: Chronic (4) Prostate CA Status: Chronic - Assessment and Plan (Free Text) Assessment: 82 year old with complicated UTI Plan: On Merrem continue medications DVT prophylaxis PT
[2018-01-08] MEDS: Meropenem 1 GM in Sodium Chloride 0.9% 100 ML IVPB SCH ×3 (05:22→21:24)
[2018-01-08] MEDS: Acetaminophen-Codeine 300/30 mg Tab PO PRN (05:24)
[2018-01-08] MEDS: Insulin Lispro (humaLOG) 100 Units/ml Inj SC SCH ×4 (06:39→21:25)
[2018-01-08 08:43] LABS: HEMOGLOBIN 13.2 g/dL (12.0-18.0); MEAN CELL VOLUME 86.6 fl (80.0-94.0); MEAN CORPUSCULAR HEMOGLOBIN 29.1 pg (27.0-31.0); MEAN CORPUSCULAR HGB CONC 33.5 g/dL (33.0-37.0); RBC 4.53 Mil/uL (4.40-5.90); RED CELL DISTRIBUTION WIDTH 15.3 % (11.5-14.5); WHITE BLOOD COUNT 7.8 K/uL (4.8-10.8)
[2018-01-08 09:19] LABS: BLOOD UREA NITROGEN 9 mg/dl (9-20); GFR AFRICAN-AMERICAN > 60; GFR NON-AFRICAN AMERICAN > 60
[2018-01-08] MEDS: Enoxaparin 40 mg Syringe SC SCH (11:05)
--- NOTE | 2018-01-08 13:19 | CP.PCM.PN ---
Subjective - Date & Time of Evaluation Date of Evaluation: 01/08/18 Time of Evaluation: 10:00 - Subjective Subjective: afeb on merrem iv rx renewed Objective - Vital Signs/Intake and Output Vital Signs (last 24 hours): Temp Pulse Resp BP Pulse Ox 97.3 F L 72 20 144/81 93 L 01/08/18 08:29 01/08/18 09:23 01/08/18 08:29 01/08/18 09:23 01/08/18 08:29 - Medications Medications: Current Medications Acetaminophen/Codeine Phosphate (Tylenol/Codeine 300 Mg/30 Mg) 1 tab PO Q8 PRN PRN Reason: Pain, moderate (4-7) Last Admin: 01/08/18 05:24 Dose: 1 tab Amlodipine Besylate (Norvasc) 10 mg PO DAILY [facility] Last Admin: 01/08/18 09:23 Dose: 10 mg Enoxaparin Sodium (Lovenox) 40 mg SC DAILY [facility] PRN Reason: Protocol Last Admin: 01/08/18 11:05 Dose: 40 mg Home Med (Dutasteride [Avodart]) 0.5 mg PO HS [facility] Meropenem 1 gm/ Sodium (Chloride) 100 mls @ 100 mls/hr IVPB Q8@0500,1300,2100 [facility] PRN Reason: Protocol Last Admin: 01/08/18 12:47 Dose: 100 mls/hr Insulin Human Lispro (Humalog) 0 units SC ACHS [facility] PRN Reason: Protocol Last Admin: 01/08/18 12:45 Dose: Not Given - Labs Labs: 01/08/18 08:00 01/08/18 08:00 PT 11.1 Seconds (9.8-13.1) 01/04/18 05:15 INR 1.0 (0.9-1.2) 01/04/18 05:15 - Constitutional Appears: Non-toxic, Chronically Ill - Head Exam Head Exam: NORMOCEPHALIC - Eye Exam Eye Exam: PERRL - ENT Exam ENT Exam: Mucous Membranes Dry - Neck Exam Neck Exam: absent: Lymphadenopathy - Respiratory Exam Respiratory Exam: Decreased Breath Sounds - Cardiovascular Exam Cardiovascular Exam: REGULAR RHYTHM - GI/Abdominal Exam GI & Abdominal Exam: Distended, Soft - Rectal Exam Rectal Exam: Deferred - Exam Exam: NORMAL INSPECTION - Extremities Exam Extremities Exam: absent: Pedal Edema - Back Exam Back Exam: absent: CVA tenderness (L), CVA tenderness (R) Assessment and Plan (1) Back pain Status: Acute (2) Cervical spine arthritis Status: Acute (3) Complicated UTI (urinary tract infection) Status: Acute (4) Compression fracture Status: Acute - Assessment and Plan (Free Text) Assessment: cont iv rx gu follow up
--- NOTE | 2018-01-08 19:55 | CP.PCM.PN ---
Subjective - Date & Time of Evaluation Date of Evaluation: 01/08/18 Time of Evaluation: 12:20 - Subjective Subjective: Feels okay, offers no complains. Participating in PT Objective - Vital Signs/Intake and Output Vital Signs (last 24 hours): Temp Pulse Resp BP Pulse Ox 97.7 F 79 20 140/77 95 01/08/18 16:50 01/08/18 16:50 01/08/18 16:50 01/08/18 16:50 01/08/18 16:50 - Medications Medications: Current Medications Acetaminophen/Codeine Phosphate (Tylenol/Codeine 300 Mg/30 Mg) 1 tab PO Q8 PRN PRN Reason: Pain, moderate (4-7) Last Admin: 01/08/18 05:24 Dose: 1 tab Amlodipine Besylate (Norvasc) 10 mg PO DAILY [facility] Last Admin: 01/08/18 09:23 Dose: 10 mg Enoxaparin Sodium (Lovenox) 40 mg SC DAILY [facility] PRN Reason: Protocol Last Admin: 01/08/18 11:05 Dose: 40 mg Home Med (Dutasteride [Avodart]) 0.5 mg PO HS [facility] Meropenem 1 gm/ Sodium (Chloride) 100 mls @ 100 mls/hr IVPB Q8@0500,1300,2100 [facility] PRN Reason: Protocol Last Admin: 01/08/18 12:47 Dose: 100 mls/hr Insulin Human Lispro (Humalog) 0 units SC ACHS [facility] PRN Reason: Protocol Last Admin: 01/08/18 16:40 Dose: Not Given - Labs Labs: 01/08/18 08:00 01/08/18 08:00 PT 11.1 Seconds (9.8-13.1) 01/04/18 05:15 INR 1.0 (0.9-1.2) 01/04/18 05:15 - Constitutional Appears: Well, No Acute Distress - Head Exam Head Exam: ATRAUMATIC - Respiratory Exam Respiratory Exam: Decreased Breath Sounds, NORMAL BREATHING PATTERN - Cardiovascular Exam Cardiovascular Exam: +S1, +S2 - GI/Abdominal Exam GI & Abdominal Exam: Distended, Soft, Normal Bowel Sounds - Neurological Exam Neurological Exam: Alert, Oriented x3 - Psychiatric Exam Psychiatric exam: Normal Affect - Skin Skin Exam: Normal Color, Warm Assessment and Plan (1) Complicated UTI (urinary tract infection) Status: Acute (2) Diabetes mellitus Status: Chronic (3) Hypertension Status: Chronic (4) Prostate CA Status: Chronic - Assessment and Plan (Free Text) Assessment: 82 year old with complicated UTI Plan: On Merrem continue rest of medications PT
[2018-01-09] MEDS: Meropenem 1 GM in Sodium Chloride 0.9% 100 ML IVPB SCH ×3 (05:13→20:21)
[2018-01-09] MEDS: Insulin Lispro (humaLOG) 100 Units/ml Inj SC SCH ×4 (06:39→21:48)
[2018-01-09] MEDS: Enoxaparin 40 mg Syringe SC SCH (08:37)
[2018-01-09] MEDS: Acetaminophen-Codeine 300/30 mg Tab PO PRN (17:16)
--- NOTE | 2018-01-09 20:25 | CP.PCM.PN ---
Subjective - Date & Time of Evaluation Date of Evaluation: 01/09/18 Time of Evaluation: 11:45 - Subjective Subjective: Feels good, no complains. Denies fever or chills Objective - Vital Signs/Intake and Output Vital Signs (last 24 hours): Temp Pulse Resp BP Pulse Ox 97.7 F 83 20 154/84 H 95 01/09/18 19:41 01/09/18 19:41 01/09/18 19:41 01/09/18 19:41 01/09/18 19:41 - Medications Medications: Current Medications Acetaminophen/Codeine Phosphate (Tylenol/Codeine 300 Mg/30 Mg) 1 tab PO Q8 PRN PRN Reason: Pain, moderate (4-7) Last Admin: 01/09/18 17:16 Dose: 1 tab Amlodipine Besylate (Norvasc) 10 mg PO DAILY [facility] Last Admin: 01/09/18 08:37 Dose: 10 mg Enoxaparin Sodium (Lovenox) 40 mg SC DAILY [facility] PRN Reason: Protocol Last Admin: 01/09/18 08:37 Dose: 40 mg Home Med (Dutasteride [Avodart]) 0.5 mg PO HS [facility] Meropenem 1 gm/ Sodium (Chloride) 100 mls @ 100 mls/hr IVPB Q8@0500,1300,2100 [facility] PRN Reason: Protocol Last Admin: 01/09/18 13:24 Dose: 100 mls/hr Insulin Human Lispro (Humalog) 0 units SC ACHS [facility] PRN Reason: Protocol Last Admin: 01/09/18 16:37 Dose: Not Given - Labs Labs: 01/08/18 08:00 01/08/18 08:00 PT 11.1 Seconds (9.8-13.1) 01/04/18 05:15 INR 1.0 (0.9-1.2) 01/04/18 05:15 - Constitutional Appears: Well, No Acute Distress - Head Exam Head Exam: ATRAUMATIC - Respiratory Exam Respiratory Exam: Decreased Breath Sounds, NORMAL BREATHING PATTERN - Cardiovascular Exam Cardiovascular Exam: REGULAR RHYTHM, +S1, +S2 - GI/Abdominal Exam GI & Abdominal Exam: Distended, Soft, Normal Bowel Sounds - Neurological Exam Neurological Exam: Alert, Oriented x3 - Psychiatric Exam Psychiatric exam: Normal Affect, Normal Mood - Skin Skin Exam: Normal Color, Warm Assessment and Plan (1) Complicated UTI (urinary tract infection) Status: Acute (2) Diabetes mellitus Status: Chronic (3) Hypertension Status: Chronic (4) Prostate CA Status: Chronic - Assessment and Plan (Free Text) Assessment: 82 year old with complicated UTI Plan: On Merrem ID consult appreciated continue medications PT
[2018-01-10] MEDS: Meropenem 1 GM in Sodium Chloride 0.9% 100 ML IVPB SCH ×3 (04:57→21:40)
[2018-01-10] MEDS: Insulin Lispro (humaLOG) 100 Units/ml Inj SC SCH ×5 (07:34→21:40)
[2018-01-10] MEDS: Enoxaparin 40 mg Syringe SC SCH (08:38)
[2018-01-10] MEDS: Acetaminophen-Codeine 300/30 mg Tab PO PRN (08:46)
[2018-01-10 18:02] LABS: HEMOGLOBIN 13.7 g/dL (12.0-18.0); MEAN CELL VOLUME 86.2 fl (80.0-94.0); MEAN CORPUSCULAR HGB CONC 33.7 g/dL (33.0-37.0); RBC 4.74 Mil/uL (4.40-5.90); RED CELL DISTRIBUTION WIDTH 15.5 % (11.5-14.5); WHITE BLOOD COUNT 8.2 K/uL (4.8-10.8)
[2018-01-10 18:32] LABS: ALB/GLOB RATIO 0.8 (1.0-2.1); ALBUMIN 3.8 g/dL (3.5-5.0); ALT/SGPT 26 U/L (21-72); AST/SGOT 26 U/L (17-59); BLOOD UREA NITROGEN 11 mg/dl (9-20); CALCIUM 9.2 mg/dL (8.4-10.2); CALCIUM 9.6 mg/dL (8.4-10.2); GFR AFRICAN-AMERICAN > 60; GFR NON-AFRICAN AMERICAN > 60
--- NOTE | 2018-01-10 23:33 | CP.PCM.PN ---
Subjective - Date & Time of Evaluation Date of Evaluation: 01/10/18 Time of Evaluation: 15:15 - Subjective Subjective: Feels okay, no fever or chills. Doing well with PT Objective - Vital Signs/Intake and Output Vital Signs (last 24 hours): Temp Pulse Resp BP Pulse Ox 97.5 F L 84 20 150/70 92 L 01/10/18 20:57 01/10/18 20:57 01/10/18 20:57 01/10/18 20:57 01/10/18 20:57 - Medications Medications: Current Medications Acetaminophen/Codeine Phosphate (Tylenol/Codeine 300 Mg/30 Mg) 1 tab PO Q8 PRN PRN Reason: Pain, moderate (4-7) Last Admin: 01/10/18 08:46 Dose: 1 tab Amlodipine Besylate (Norvasc) 10 mg PO DAILY [facility] Last Admin: 01/10/18 08:38 Dose: 10 mg Enoxaparin Sodium (Lovenox) 40 mg SC DAILY [facility] PRN Reason: Protocol Last Admin: 01/10/18 08:38 Dose: 40 mg Home Med (Dutasteride [Avodart]) 0.5 mg PO HS JONATHON Meropenem 1 gm/ Sodium (Chloride) 100 mls @ 100 mls/hr IVPB Q8@0500,1300,2100 JONATHON PRN Reason: Protocol Last Admin: 01/10/18 21:40 Dose: 100 mls/hr Insulin Human Lispro (Humalog) 0 units SC ACHS JONATHON PRN Reason: Protocol Last Admin: 01/10/18 21:40 Dose: Not Given - Labs Labs: 01/10/18 17:58 01/10/18 17:58 PT 11.1 Seconds (9.8-13.1) 01/04/18 05:15 INR 1.0 (0.9-1.2) 01/04/18 05:15 - Constitutional Appears: Well, No Acute Distress - Respiratory Exam Respiratory Exam: Decreased Breath Sounds, NORMAL BREATHING PATTERN - Cardiovascular Exam Cardiovascular Exam: REGULAR RHYTHM, +S1, +S2 - GI/Abdominal Exam GI & Abdominal Exam: Distended, Soft, Normal Bowel Sounds - Neurological Exam Neurological Exam: Alert, Oriented x3 - Psychiatric Exam Psychiatric exam: Normal Affect, Normal Mood - Skin Skin Exam: Normal Color, Warm Assessment and Plan (1) Complicated UTI (urinary tract infection) Status: Acute (2) Diabetes mellitus Status: Chronic (3) Hypertension Status: Chronic (4) Prostate CA Status: Chronic - Assessment and Plan (Free Text) Assessment: 82 year old male with complicated UTI Plan: On Merrem continue medications DVT prophylaxis PT
[2018-01-11] MEDS: Meropenem 1 GM in Sodium Chloride 0.9% 100 ML IVPB SCH ×3 (05:07→21:23)
[2018-01-11] MEDS: Insulin Lispro (humaLOG) 100 Units/ml Inj SC SCH ×4 (06:59→21:24)
[2018-01-11] MEDS: Enoxaparin 40 mg Syringe SC SCH (08:43)
--- NOTE | 2018-01-11 12:12 | CARD ---
APPROVED REPORT EKG Measurement Heart [id number] <Conclusion> Normal sinus rhythm Possible Left atrial enlargement Left axis deviation Incomplete right bundle branch block Left ventricular hypertrophy Prolonged QT Abnormal ECG
--- NOTE | 2018-01-11 13:38 | CP.PCM.PN ---
Subjective - Date & Time of Evaluation Date of Evaluation: 01/11/18 Time of Evaluation: 09:00 - Subjective Subjective: improving slowly IV rx in progress possible d/c in am Objective - Vital Signs/Intake and Output Vital Signs (last 24 hours): Temp Pulse Resp BP Pulse Ox 97.5 F L 76 20 134/66 91 L 01/11/18 09:26 01/11/18 09:26 01/11/18 09:26 01/11/18 09:26 01/11/18 09:26 - Medications Medications: Current Medications Acetaminophen/Codeine Phosphate (Tylenol/Codeine 300 Mg/30 Mg) 1 tab PO Q8 PRN PRN Reason: Pain, moderate (4-7) Last Admin: 01/10/18 08:46 Dose: 1 tab Amlodipine Besylate (Norvasc) 10 mg PO DAILY [facility] Last Admin: 01/11/18 08:45 Dose: Not Given Enoxaparin Sodium (Lovenox) 40 mg SC DAILY [facility] PRN Reason: Protocol Last Admin: 01/11/18 08:43 Dose: 40 mg Meropenem 1 gm/ Sodium (Chloride) 100 mls @ 100 mls/hr IVPB Q8@0500,1300,2100 JONATHON PRN Reason: Protocol Last Admin: 01/11/18 05:07 Dose: 100 mls/hr Insulin Human Lispro (Humalog) 0 units SC ACHS JONATH[facility] PRN Reason: Protocol Last Admin: 01/11/18 06:59 Dose: Not Given - Labs Labs: 01/10/18 17:58 01/10/18 17:58 PT 11.1 Seconds (9.8-13.1) 01/04/18 05:15 INR 1.0 (0.9-1.2) 01/04/18 05:15 - Constitutional Appears: Non-toxic, Chronically Ill - Head Exam Head Exam: NORMOCEPHALIC - Eye Exam Eye Exam: PERRL - ENT Exam ENT Exam: Mucous Membranes Dry - Neck Exam Neck Exam: absent: Lymphadenopathy - Respiratory Exam Respiratory Exam: Decreased Breath Sounds - Cardiovascular Exam Cardiovascular Exam: REGULAR RHYTHM - GI/Abdominal Exam GI & Abdominal Exam: Distended Assessment and Plan (1) Back pain Status: Acute (2) Cervical spine arthritis Status: Acute (3) Complicated UTI (urinary tract infection) Status: Acute (4) Compression fracture Status: Acute
--- NOTE | 2018-01-11 13:46 | CP.PCM.PN ---
Subjective - Date & Time of Evaluation Date of Evaluation: 01/11/18 Time of Evaluation: 13:20 - Subjective Subjective: Feels okay. Denies fever or chills Objective - Vital Signs/Intake and Output Vital Signs (last 24 hours): Temp Pulse Resp BP Pulse Ox 97.5 F L 76 20 134/66 91 L 01/11/18 09:26 01/11/18 09:26 01/11/18 09:26 01/11/18 09:26 01/11/18 09:26 - Medications Medications: Current Medications Acetaminophen/Codeine Phosphate (Tylenol/Codeine 300 Mg/30 Mg) 1 tab PO Q8 PRN PRN Reason: Pain, moderate (4-7) Last Admin: 01/10/18 08:46 Dose: 1 tab Amlodipine Besylate (Norvasc) 10 mg PO DAILY [facility] Last Admin: 01/11/18 08:45 Dose: Not Given Enoxaparin Sodium (Lovenox) 40 mg SC DAILY [facility] PRN Reason: Protocol Last Admin: 01/11/18 08:43 Dose: 40 mg Meropenem 1 gm/ Sodium (Chloride) 100 mls @ 100 mls/hr IVPB Q8@0500,1300,2100 JONATHON PRN Reason: Protocol Last Admin: 01/11/18 05:07 Dose: 100 mls/hr Insulin Human Lispro (Humalog) 0 units SC ACHS [facility] PRN Reason: Protocol Last Admin: 01/11/18 06:59 Dose: Not Given - Labs Labs: 01/10/18 17:58 01/10/18 17:58 PT 11.1 Seconds (9.8-13.1) 01/04/18 05:15 INR 1.0 (0.9-1.2) 01/04/18 05:15 - Constitutional Appears: Well, No Acute Distress - Head Exam Head Exam: ATRAUMATIC - Respiratory Exam Respiratory Exam: Decreased Breath Sounds, NORMAL BREATHING PATTERN - Cardiovascular Exam Cardiovascular Exam: REGULAR RHYTHM, +S1, +S2 - GI/Abdominal Exam GI & Abdominal Exam: Distended, Soft, Normal Bowel Sounds - Neurological Exam Neurological Exam: Alert, Oriented x3 - Psychiatric Exam Psychiatric exam: Normal Affect - Skin Skin Exam: Normal Color, Warm Assessment and Plan (1) Complicated UTI (urinary tract infection) Status: Acute (2) Diabetes mellitus Status: Chronic (3) Hypertension Status: Chronic (4) Prostate CA Status: Chronic - Assessment and Plan (Free Text) Assessment: 82 year old with complicated UTI Plan: Continue Merrem Antibiotic recommendation per ID continue rest of treatment D/c planning
[2018-01-11] MEDS: Lidocaine 5% Patch TD SCH (17:29)
[2018-01-12] MEDS: Meropenem 1 GM in Sodium Chloride 0.9% 100 ML IVPB SCH ×2 (05:12→12:47)
[2018-01-12] MEDS: Insulin Lispro (humaLOG) 100 Units/ml Inj SC SCH ×2 (06:31→12:47)
[2018-01-12 08:10] VITALS: BP 150/80; PULSE 75; TEMP 97.5
[2018-01-12] MEDS: Lidocaine 5% Patch TD SCH (08:26)
[2018-01-12] MEDS: Enoxaparin 40 mg Syringe SC SCH (08:26)
[2018-01-12 13:28] VITALS: O2SAT 98
--- NOTE | 2018-01-12 23:37 | CP.PCM.DIS ---
Provider - Provider Date of Admission: 01/03/18 23:17 Attending physician: Michel Reece MD Diagnosis - Discharge Diagnosis (1) Complicated UTI (urinary tract infection) Status: Acute (2) Diabetes mellitus Status: Chronic (3) Hypertension Status: Chronic (4) Prostate CA Status: Chronic Hospital Course - Lab Results Lab Results: Most Recent Lab Values WBC 8.2 K/uL (4.8-10.8) 01/10/18 17:58 RBC 4.74 Mil/uL (4.40-5.90) 01/10/18 17:58 Hgb 13.7 g/dL (12.0-18.0) 01/10/18 17:58 Hct 40.8 % (35.0-51.0) 01/10/18 17:58 MCV 86.2 fl (80.0-94.0) 01/10/18 17:58 MCH 29.0 pg (27.0-31.0) 01/10/18 17:58 MCHC 33.7 g/dL (33.0-37.0) 01/10/18 17:58 RDW 15.5 % (11.5-14.5) H 01/10/18 17:58 Plt Count 258 K/uL (130-400) 01/10/18 17:58 PT 11.1 Seconds (9.8-13.1) 01/04/18 05:15 INR 1.0 (0.9-1.2) 01/04/18 05:15 Sodium 141 mmol/l (132-148) 01/10/18 17:58 Potassium 4.2 MMOL/L (3.6-5.0) 01/10/18 17:58 Chloride 97 mmol/L (98-107) L 01/10/18 17:58 Carbon Dioxide 31 mmol/L (22-30) H 01/10/18 17:58 Anion Gap 17 (10-20) 01/10/18 17:58 BUN 11 mg/dl (9-20) 01/10/18 17:58 Creatinine 0.7 mg/dl (0.8-1.5) L 01/10/18 17:58 Est GFR ( Amer) > 60 01/10/18 17:58 Est GFR (Non-Af Amer) > 60 01/10/18 17:58 POC Glucose (mg/dL) 161 mg/dL (65-110) H 01/12/18 11:04 Random Glucose 122 mg/dL (75-110) H 01/10/18 17:58 Calcium 9.2 mg/dL (8.4-10.2) 01/10/18 17:58 Magnesium 2.0 MG/DL (1.6-2.3) 01/10/18 17:58 Total Bilirubin 0.3 mg/dl (0.2-1.3) 01/10/18 17:58 AST 26 U/L (17-59) 01/10/18 17:58 ALT 26 U/L (21-72) 01/10/18 17:58 Alkaline Phosphatase 169 U/L (38-126) H 01/10/18 17:58 Troponin I < 0.0120 ng/mL (0.00-0.120) 01/10/18 17:58 Total Protein 8.5 G/DL (6.3-8.2) H 01/10/18 17:58 Albumin 3.8 g/dL (3.5-5.0) 01/10/18 17:58 Globulin 4.7 gm/dL (2.2-3.9) H 01/10/18 17:58 Albumin/Globulin Ratio 0.8 (1.0-2.1) L 01/10/18 17:58 Urine Color Yellow (YELLOW) 01/07/18 07:30 Urine Clarity Slighty-cloudy (Clear) 01/07/18 07:30 Urine pH 6.0 (5.0-8.0) 01/07/18 07:30 Ur Specific [place] 1.009 (1.003-1.030) 01/07/18 07:30 Urine Protein Negative mg/dL (NEGATIVE) 01/07/18 07:30 Urine Glucose (UA) 50 mg/dL (Normal) 01/07/18 07:30 Urine Ketones Negative mg/dL (NEGATIVE) 01/07/18 07:30 Urine Blood Small (NEGATIVE) 01/07/18 07:30 Urine Nitrate Negative (NEGATIVE) 01/07/18 07:30 Urine Bilirubin Negative (NEGATIVE) 01/07/18 07:30 Urine Urobilinogen 0.2-1.0 mg/dL (0.2-1.0) 01/07/18 07:30 Ur Leukocyte Esterase Large Lillie/uL (Negative) 01/07/18 07:30 Urine RBC (Auto) 14 /hpf (0-3) H 01/07/18 07:30 Urine Microscopic WBC 106 /hpf (0-5) H 01/07/18 07:30 Ur Squamous Epith Cells 1 /hpf (0-5) 01/07/18 07:30 - Hospital Course Hospital Course: 82 year old with pmhx of HTN, DM, prostate ca, recurrent UTIs and chronic back pain following a fall who was admitted to TCU for completion of IV antibiotics for complicated UTI, ESBL positive. The patient tolerated treatment well and has remained asymptomatic. The patient also participated in PT and is independent with ADLs. The patient was discharged home with outpatient f/u instructions. Discharge Exam - Head Exam Head Exam: ATRAUMATIC - Respiratory Exam Respiratory Exam: Decreased Breath Sounds, NORMAL BREATHING PATTERN - Cardiovascular Exam Cardiovascular Exam: REGULAR RHYTHM, +S1, +S2 - GI/Abdominal Exam GI & Abdominal Exam: Distended, Normal Bowel Sounds, Soft - Neurological Exam Neurological exam: Alert, Oriented x3 - Psychiatric Exam Psychiatric exam: Normal Affect, Normal Mood - Skin Skin Exam: Normal Color, Warm Discharge Plan - Follow Up Plan Condition: GOOD Disposition: HOME/ ROUTINE
== END 2018-01-12 15:15 | disposition home or self-care (01) | DRG 321 ==
LOC: H.TCU 23:17
PROVIDERS: ADMIT Internal Medicine; ATTEND Internal Medicine
PROC: 3E03329 Introduction of Other Anti-infective into Peripheral Vein, Percutaneous Approach (ICD-10-PCS; principal; 2018-01-03)
PROC: F07Z9FZ Gait Training/Functional Ambulation Treatment using Assistive, Adaptive, Supportive or Protective Equipment (ICD-10-PCS; 2018-01-03)
PROC: F08Z4FZ Home Management Treatment using Assistive, Adaptive, Supportive or Protective Equipment (ICD-10-PCS; 2018-01-03)
DX: N39.0 Urinary tract infection, site not specified (principal); E11.9 Type 2 diabetes mellitus without complications; I10 Essential (primary) hypertension; M46.82 Other specified inflammatory spondylopathies, cervical region; G89.29 Other chronic pain; Z16.12 Extended spectrum beta lactamase (ESBL) resistance; M19.90 Unspecified osteoarthritis, unspecified site; Z87.440 Personal history of urinary (tract) infections; Z85.46 Personal history of malignant neoplasm of prostate; Z87.311 Personal history of (healed) other pathological fracture; Z91.81 History of falling

== ENCOUNTER 2018-02-04 15:04 | Inpatient (IN) | payer MEDICAID ==
[2018-02-04 15:04] VITALS: BMI 29.0
--- NOTE | 2018-02-04 16:21 | ED PDOC ---
HPI: General Adult Time Seen by Provider: 02/04/18 15:36 Chief Complaint (Nursing): Flu-like Symptoms Chief Complaint (Provider): Flu-like Symptoms History Per: Family (Son) History/Exam Limitations: no limitations Onset/Duration Of Symptoms: Days (x3 days) Current Symptoms Are (Timing): Still Present Additional Complaint(s): 82 y/o male presents to the ED complaining of back pain x 3 days. Patient reports pain is left sided and in the thoracic region of back which radiates down. Patient wasnt able to sleep all night because in addition to back pain he had generalized weakness, malaise fatigue, loss of appetite and lack of energy. Patient is on course of antibiotics for UTI and has two days left of the antibiotic. Son reports that he only takes medications when he feels like. Denies fever but feels cold sometimes. Denies chest pain, cough, vomiting, diarrhea, urinary symptoms or any further medical complaints. PMD: Dr. Reece Past Medical History Reviewed: Historical Data, Nursing Documentation, Vital Signs Vital Signs: Last Vital Signs Temp 97.9 F 02/04/18 15:14 Pulse 86 02/04/18 19:00 Resp 20 02/04/18 19:00 BP 156/98 H 02/04/18 19:00 Pulse Ox 98 02/04/18 19:00 - Medical History PMH: Arthritis, Diabetes (type II), HTN Denies: HIV, Chronic Kidney Disease - Surgical History Other surgeries: Prostrate surgery - Family History Family History: States: Unknown Family Hx - Social History Current smoker - smoking cessation education provided: No Alcohol: None Drugs: Denies - Home Medications Home Medications: Ambulatory Orders Medication Instructions Recorded Acetaminophen with Codeine 1 tab PO Q8 PRN 12/29/17 [Tylenol with Codeine #3 Tablet] Dutasteride [Avodart] 0.5 mg PO HS 12/29/17 amLODIPine [Norvasc] 10 mg PO DAILY tab 01/03/18 - Allergies Allergies/Adverse Reactions: Allergies Allergy/AdvReac Type Severity Reaction Status Date / Time No Known Allergies Allergy Verified 01/27/17 22:33 Review of Systems ROS Statement: Except As Marked, All Systems Reviewed And Found Negative (As per HPI, otherwise negative) Constitutional: Positive for: Weakness, Malaise, Other (loss of appetite). Negative for: Fever Cardiovascular: Negative for: Chest Pain Gastrointestinal: Negative for: Vomiting, Diarrhea Genitourinary Male: Negative for: Incontinence, Hematuria, Penile Discharge, Scrotal Pain Musculoskeletal: Positive for: Back Pain Physical Exam - Reviewed Nursing Documentation Reviewed: Yes Vital Signs Reviewed: Yes - Physical Exam Appears: Positive for: Non-toxic, No Acute Distress (patient apprears tired) Head Exam: Positive for: ATRAUMATIC, NORMAL INSPECTION, NORMOCEPHALIC Skin: Positive for: Normal Color, Warm, Dry Eye Exam: Positive for: EOMI, Normal appearance, PERRL ENT: Positive for: Normal ENT Inspection Neck: Positive for: Normal, Painless ROM, Supple Cardiovascular/Chest: Positive for: Regular Rate, Rhythm. Negative for: Murmur Respiratory: Positive for: Normal Breath Sounds. Negative for: Accessory Muscle Use, Respiratory Distress Gastrointestinal/Abdominal: Positive for: Normal Exam, Soft. Negative for: Tenderness Back: Positive for: Normal Inspection, Other (mild left throacic and paraspinal tenderness). Negative for: L CVA Tenderness, R CVA Tenderness, Vertebral Tenderness Extremity: Positive for: Normal ROM. Negative for: Deformity Neurologic/Psych: Positive for: Alert, Oriented (x3) - Laboratory Results Result Diagrams: 02/04/18 16:35 02/04/18 16:35 - ECG ECG Rhythm: Positive for: Sinus Rhythm (Normal Sinus rhythm at 83 bpm), Right Bundle Branch Block, ST/T Changes (Normal ST segments), Nonspecific Changes Interpretation Of Abn EKG: Left Ventricular Hypertrophy O2 Sat by Pulse Oximetry: 99 (RA) Pulse Ox Interpretation: Normal Medical Decision Making Medical Decision Making: Time: 15:54 Initial Impression: weakness, back pain Differential diagnosis: UTI, sepsis, dehydration, edema, renal failure Plan: Type and screen VBG EKG BNP CMP Lipase Magnesium Phosphorous Thyroid stimulating hormone Troponin I Urine dipstick CBC w/ differential PTT Prothrombin time Chest x-ray Blood culture Urine culture IV insertion (saline lock) Glucose, blood, POC Influenza A B Urinalysis Reevaluation Time: 16:20 --Dr. Reece came to the ED to evaluate patient Labs unremarkable. Pending UA. Accession No. : [id number] Patient Name / ID : VALENCIA WEDNY / [id number] Exam Date : 02/04/2018 15:54:50 ( Approved ) Study Comment : Sex / Age : M / 82Y Creator : Oni Al MD Dictator : Android Programmer : Deputy County Clerk : Oni Al MD Approver2 : Report Date : 02/04/2018 16:33:37 My Comment : HISTORY: weakness COMPARISON: No prior. TECHNIQUE: Chest PA and lateral FINDINGS: LUNGS: Mild pulmonary vascular congestive changes with what appears represent early bilateral lower lobe alveolar-type infiltrates. Questionable small effusions left larger than right. PLEURA: As above. No pneumothorax apparent. CARDIOVASCULAR: Cardiomegaly. OSSEOUS STRUCTURES: No significant abnormalities. VISUALIZED UPPER ABDOMEN: Normal. OTHER FINDINGS: None. IMPRESSION: Mild pulmonary vascular congestive changes with what appears represent early bilateral lower lobe alveolar-type infiltrates. Questionable small effusions left larger than right. Cardiomegaly. 1800 Pt became short of breath when going to the bathroom. DW patient and son findings. Pt needs hospitalization for acute CHF. Lasix/Ntg/ASA ordered. TRINI ellison for private PMD Dr Huggins Scribe Attestation: Documented by Trent Timmons acting as a scribe for Heather Middleton MD. Scribe Attestation: All medical record entries made by the Scribe were at my direction and personally dictated by me. I have reviewed the chart and agree that the record accurately reflects my personal performance of the history, physical exam, medical decision making, and the department course for this patient. I have also personally directed, reviewed, and agree with the discharge instructions and disposition. Disposition - Clinical Impression Clinical Impression: CHF exacerbation Counseled Patient/Family Regarding: Studies Performed, Diagnosis - Disposition Disposition Time: 18:00 Condition: GUARDED - Pt Status Changed To: Hospital Disposition Of: Observation - POA Present On Arrival: None
--- NOTE | 2018-02-04 16:35 | RAD ---
HISTORY: weakness COMPARISON: No prior. TECHNIQUE: Chest PA and lateral FINDINGS: LUNGS: Mild pulmonary vascular congestive changes with what appears represent early bilateral lower lobe alveolar-type infiltrates. Questionable small effusions left larger than right. PLEURA: As above. No pneumothorax apparent. CARDIOVASCULAR: Cardiomegaly. OSSEOUS STRUCTURES: No significant abnormalities. VISUALIZED UPPER ABDOMEN: Normal. OTHER FINDINGS: None. IMPRESSION: Mild pulmonary vascular congestive changes with what appears represent early bilateral lower lobe alveolar-type infiltrates. Questionable small effusions left larger than right. Cardiomegaly.
[2018-02-04 16:39] LABS: VENOUS BLOOD GAS PCO2 54 mmHg (40-60); VENOUS BLOOD GAS PO2 28 mm/Hg (30-55)
[2018-02-04 16:50] LABS: BASO # 0.1 K/uL (0.0-0.2); BASO % 0.8 % (0.0-2.0); EOS # 0.1 K/uL (0.0-0.7); EOS % 1.5 % (0.0-4.0); HEMOGLOBIN 13.6 g/dL (12.0-18.0); LYMPH # 2.4 K/uL (1.0-4.3); LYMPH % 26.6 % (20.0-40.0); MEAN CELL VOLUME 86.2 fl (80.0-94.0); MEAN CORPUSCULAR HEMOGLOBIN 28.9 pg (27.0-31.0); MEAN CORPUSCULAR HGB CONC 33.5 g/dL (33.0-37.0); MEAN PLATELET VOLUME 8.5 fl (7.2-11.7); MONO # 0.7 K/uL (0.0-0.8); MONO % 7.6 % (0.0-10.0); NEUT # 5.7 K/uL (1.8-7.0); NEUT % 63.5 % (50.0-75.0); NRBC % 0.1 % (0.0-0.0); RBC 4.72 Mil/uL (4.40-5.90); RED CELL DISTRIBUTION WIDTH 15.1 % (11.5-14.5); WHITE BLOOD COUNT 8.9 K/uL (4.8-10.8)
[2018-02-04 17:01] LABS: PROTHROMBIN TIME 11.4 Seconds (9.8-13.1)
[2018-02-04 17:02] LABS: PARTIAL THROMBOPLASTIN TIME 36.2 Seconds (25.6-37.1)
[2018-02-04 17:15] LABS: B-TYPE NATRIURETIC PEPTIDE 435 pg/ml (0-900)
[2018-02-04 17:36] LABS: ALB/GLOB RATIO 0.8 (1.0-2.1); ALBUMIN 3.9 g/dL (3.5-5.0); ALT/SGPT 33 U/L (21-72); AST/SGOT 26 U/L (17-59); BLOOD UREA NITROGEN 12 mg/dl (9-20); GFR AFRICAN-AMERICAN > 60; GFR NON-AFRICAN AMERICAN > 60; LIPASE 62 U/L (23-300)
[2018-02-04] MEDS ORDERED: Nitroglycerin 2% Ointment Foilpak UD TOP STA (18:51)
[2018-02-04 18:57] LABS: URINE BACTERIA RARE (<OCC); URINE BILIRUBIN NEGATIVE (NEGATIVE); URINE BLOOD NEGATIVE (NEGATIVE); URINE CLARITY CLEAR (Clear); URINE COLOR STRAW (YELLOW); URINE GLUCOSE (UA) NEG (Normal); URINE LEUKOCYTE ESTERASE TRACE Leu/uL (Negative); URINE PROTEIN 30 mg/dL (NEGATIVE); URINE UROBILINOGEN 0.2-1.0 mg/dL (0.2-1.0)
[2018-02-04] MEDS ORDERED: Acetaminophen-Codeine 300/30 mg Tab ONE (21:42)
[2018-02-04] MEDS: Acetaminophen-Codeine 300/30 mg Tab PO PRN (21:46)
--- NOTE | 2018-02-04 22:17 | CP.PCM.HP ---
History of Present Illness - History of Present Illness History of Present Illness: Cc: shortness of breath An 82 years old male with a pmhx of HTN, DM and recent T12 fracture from a fall who was recently admitted and treated for ESBL positive UTI and discharged on oral medications. Was at home and was having multiple symptoms including generalized weakness, malaise, fatigue, loss of appetite, lack of energy and in addition systolic BP was elevated in the 200s despite taking his medications. He was brought to the ED by his son. The history is obtained from his son, the patient is a poor historian. The patient was also complaining of shortness of breath, unable to lie flat and leg swelling. Denies chest pain, palpitations, lightheadedness, nausea or vomiting. Chest x-ray revealed b/l infiltrates and congestion. The patient was admitted to telemetry unit for new onset CHF. Present on Admission - Present on Admission Any Indicators Present on Admission: No Review of Systems - Review of Systems All systems: reviewed and no additional remarkable complaints except (as stated) - Constitutional Constitutional: As Per HPI, Fatigue, Malaise, Weakness - Cardiovascular Cardiovascular: As Per HPI, Dyspnea, Leg Edema, Orthopnea. absent: Chest Pain, Lightheadedness, Palpitations, Rapid Heart Rate - Respiratory Respiratory: As Per HPI, Dyspnea - Gastrointestinal Gastrointestinal: As Per HPI. absent: Nausea, Vomiting Past Patient History - Infectious Disease Hx of Infectious Diseases: None - Past Medical History & Family History Past Medical History?: Yes - Past Social History Alcohol: None Drugs: Denies - CARDIAC Hx Hypertension: Yes - PULMONARY Hx Respiratory Disorders: No - NEUROLOGICAL Hx Neurological Disorder: No - HEENT Hx HEENT Problems: No - RENAL Hx Chronic Kidney Disease: No - ENDOCRINE/METABOLIC Hx Endocrine Disorders: Yes Hx Diabetes Mellitus Type 2: Yes - HEMATOLOGICAL/ONCOLOGICAL Hx Human Immunodeficiency Virus (HIV): No - INTEGUMENTARY Hx Dermatological Problems: No - MUSCULOSKELETAL/RHEUMATOLOGICAL Hx Arthritis: Yes - GASTROINTESTINAL Hx Gastrointestinal Disorders: No - GENITOURINARY/GYNECOLOGICAL Hx Genitourinary Disorders: No - PSYCHIATRIC Hx Psychophysiologic Disorder: No Hx Substance Use: No - SURGICAL HISTORY Hx Surgeries: Yes Hx Cataract Extraction: Yes (bilateral) Other/Comment: Prostatectomy - ANESTHESIA Hx Anesthesia: Yes Hx Anesthesia Reactions: No Hx Malignant Hyperthermia: No Meds Allergies/Adverse Reactions: Allergies Allergy/AdvReac Type Severity Reaction Status Date / Time No Known Allergies Allergy Verified 01/27/17 22:33 Physical Exam - Constitutional Appears: Well, No Acute Distress - Head Exam Head Exam: ATRAUMATIC, NORMOCEPHALIC - Eye Exam Eye Exam: EOMI, Normal appearance, PERRL Pupil Exam: NORMAL ACCOMODATION - ENT Exam ENT Exam: Mucous Membranes Moist - Neck Exam Neck exam: Positive for: Normal Inspection - Respiratory Exam Respiratory Exam: Rales (bilateral bibasilar), NORMAL BREATHING PATTERN. absent : Wheezes, Respiratory Distress Additional comments: O2 sat 91-92% on RA, improved with oxygen supplementation - Cardiovascular Exam Cardiovascular Exam: REGULAR RHYTHM, +S1, +S2. absent: JVD - GI/Abdominal Exam GI & Abdominal Exam: Normal Bowel Sounds, Soft - Rectal Exam Rectal Exam: Deferred - Extremities Exam Extremities exam: Positive for: pedal edema (L>R), pedal pulses present - Back Exam Back exam: NORMAL INSPECTION - Neurological Exam Neurological exam: Alert, Oriented x3, Reflexes Normal - Psychiatric Exam Psychiatric exam: Normal Affect, Normal Mood - Skin Skin Exam: Normal Color, Warm Results - Vital Signs Recent Vital Signs: Last Vital Signs Temp 98.3 F 02/04/18 20:54 Pulse 97 H 02/04/18 20:54 Resp 20 02/04/18 20:54 BP 148/90 02/04/18 20:54 Pulse Ox 98 02/04/18 20:54 - Labs Result Diagrams: 02/06/18 12:27 02/06/18 12:27 Labs: Laboratory Results - last 24 hr 02/04/18 02/04/18 02/04/18 16:07 16:35 16:35 WBC 8.9 RBC 4.72 Hgb 13.6 Hct 40.7 MCV 86.2 MCH 28.9 MCHC 33.5 RDW 15.1 H Plt Count 263 MPV 8.5 Neut % (Auto) 63.5 Lymph % (Auto) 26.6 Becker % (Auto) 7.6 Eos % (Auto) 1.5 Baso % (Auto) 0.8 Neut # (Auto) 5.7 Lymph # (Auto) 2.4 Becker # (Auto) 0.7 Eos # (Auto) 0.1 Baso # (Auto) 0.1 PT INR APTT pO2 VBG pH VBG pCO2 VBG HCO3 VBG Total CO2 VBG O2 Sat (Calc) VBG Base Excess VBG Potassium Sodium 138 Chloride 98 Glucose Lactate FiO2 Potassium 4.0 Carbon Dioxide 26 Anion Gap 18 BUN 12 Creatinine 0.7 L Est GFR ( Amer) > 60 Est GFR (Non-Af Amer) > 60 POC Glucose (mg/dL) 152 H Random Glucose 177 H Calcium 10.0 Phosphorus 4.4 Magnesium 1.9 Total Bilirubin 0.5 AST 26 ALT 33 Alkaline Phosphatase 149 H Troponin I 0.0170 NT-Pro-B Natriuret Pep 435 Total Protein 8.6 H Albumin 3.9 Globulin 4.7 H Albumin/Globulin Ratio 0.8 L Lipase 62 TSH 3rd Generation 1.73 Venous Blood Potassium Urine Color Urine Clarity Urine pH Ur Specific Bee Urine Protein Urine Glucose (UA) Urine Ketones Urine Blood Urine Nitrate Urine Bilirubin Urine Urobilinogen Ur Leukocyte Esterase Urine RBC (Auto) Urine Microscopic WBC Urine Bacteria Influenza Typ A,B (EIA) Blood Type Antibody Screen BBK History Checked 02/04/18 02/04/18 02/04/18 16:35 16:35 16:35 WBC RBC Hgb Hct MCV MCH MCHC RDW Plt Count MPV Neut % (Auto) Lymph % (Auto) Becker % (Auto) Eos % (Auto) Baso % (Auto) Neut # (Auto) Lymph # (Auto) Becker # (Auto) Eos # (Auto) Baso # (Auto) PT 11.4 INR 1.0 APTT 36.2 pO2 VBG pH VBG pCO2 VBG HCO3 VBG Total CO2 VBG O2 Sat (Calc) VBG Base Excess VBG Potassium Sodium Chloride Glucose Lactate FiO2 Potassium Carbon Dioxide Anion Gap BUN Creatinine Est GFR ( Amer) Est GFR (Non-Af Amer) POC Glucose (mg/dL) Random Glucose Calcium Phosphorus Magnesium Total Bilirubin AST ALT Alkaline Phosphatase Troponin I NT-Pro-B Natriuret Pep Total Protein Albumin Globulin Albumin/Globulin Ratio Lipase TSH 3rd Generation Venous Blood Potassium Urine Color Urine Clarity Urine pH Ur Specific Bee Urine Protein Urine Glucose (UA) Urine Ketones Urine Blood Urine Nitrate Urine Bilirubin Urine Urobilinogen Ur Leukocyte Esterase Urine RBC (Auto) Urine Microscopic WBC Urine Bacteria Influenza Typ A,B (EIA) Negative for flu a/b Blood Type B POSITIVE Antibody Screen Negative BBK History Checked Patient has bt 02/04/18 02/04/18 16:35 18:45 WBC RBC Hgb Hct MCV MCH MCHC RDW Plt Count MPV Neut % (Auto) Lymph % (Auto) Becker % (Auto) Eos % (Auto) Baso % (Auto) Neut # (Auto) Lymph # (Auto) Becker # (Auto) Eos # (Auto) Baso # (Auto) PT INR APTT pO2 28 L VBG pH 7.40 VBG pCO2 54 VBG HCO3 29.2 VBG Total CO2 35.1 H VBG O2 Sat (Calc) 51.9 VBG Base Excess 7.0 H VBG Potassium 4.0 Sodium 136.0 Chloride 100.0 Glucose 186 H Lactate 1.6 FiO2 21.0 Potassium Carbon Dioxide Anion Gap BUN Creatinine Est GFR ( Amer) Est GFR (Non-Af Amer) POC Glucose (mg/dL) Random Glucose Calcium Phosphorus Magnesium Total Bilirubin AST ALT Alkaline Phosphatase Troponin I NT-Pro-B Natriuret Pep Total Protein Albumin Globulin Albumin/Globulin Ratio Lipase TSH 3rd Generation Venous Blood Potassium 4.0 Urine Color Straw Urine Clarity Clear Urine pH 7.0 Ur Specific Bee 1.006 Urine Protein 30 Urine Glucose (UA) Neg Urine Ketones Negative Urine Blood Negative Urine Nitrate Negative Urine Bilirubin Negative Urine Urobilinogen 0.2-1.0 Ur Leukocyte Esterase Trace Urine RBC (Auto) < 1 Urine Microscopic WBC 1 Urine Bacteria Rare Influenza Typ A,B (EIA) Blood Type Antibody Screen BBK History Checked - Imaging and Cardiology Chest x-ray Additional comment: HISTORY: weakness COMPARISON: No prior. TECHNIQUE: Chest PA and lateral FINDINGS: LUNGS: Mild pulmonary vascular congestive changes with what appears represent early bilateral lower lobe alveolar-type infiltrates. Questionable small effusions left larger than right. PLEURA: As above. No pneumothorax apparent. CARDIOVASCULAR: Cardiomegaly. OSSEOUS STRUCTURES: No significant abnormalities. VISUALIZED UPPER ABDOMEN: Normal. OTHER FINDINGS: None. IMPRESSION: Mild pulmonary vascular congestive changes with what appears represent early bilateral lower lobe alveolar-type infiltrates. Questionable small effusions left larger than right. Cardiomegaly. Assessment & Plan (1) New onset of congestive heart failure Assessment and Plan: Start Lasix Trend troponins Echocardiogram Repeat EKG Tele monitoring Cardiology consult 2L oxygen via NC D-dimer Venous dopplers b/l LEs Status: Acute Priority: High (2) Hypertension Assessment and Plan: Medications ordered Status: Chronic Priority: High (3) Diabetes mellitus Assessment and Plan: On medications Status: Chronic Priority: Low
[2018-02-05] MEDS ORDERED: DiphenhydrAMINE 50 mg/ml Inj IVP ONE (02:26)
[2018-02-05] MEDS ORDERED: Acetaminophen-Codeine 300/30 mg Tab ONE (08:02)
[2018-02-05] MEDS: Acetaminophen-Codeine 300/30 mg Tab PO PRN (08:03)
[2018-02-05] MEDS: Insulin Lispro (humaLOG) 100 Units/ml Inj SC SCH ×2 (17:16→21:39)
--- NOTE | 2018-02-05 17:26 | CP.PCM.PN ---
Subjective - Date & Time of Evaluation Date of Evaluation: 02/05/18 Time of Evaluation: 10:45 - Subjective Subjective: Still has periods of SOB requiring the use of oxygen. Has generalized weakness. Leg swelling slightly improved Objective - Vital Signs/Intake and Output Vital Signs (last 24 hours): Temp Pulse Resp BP Pulse Ox 97.5 F L 76 18 145/66 96 02/05/18 16:02 02/05/18 16:02 02/05/18 16:02 02/05/18 16:02 02/05/18 16:02 Intake and Output: 02/05/18 02/05/18 06:59 18:59 Intake Total 430 Output Total 1520 Balance -1090 - Medications Medications: Current Medications Acetaminophen (Tylenol 325mg Tab) 650 mg PO Q6 PRN PRN Reason: Pain, moderate (4-7) Acetaminophen/Codeine Phosphate (Tylenol/Codeine 300 Mg/30 Mg) 1 tab PO Q8 PRN PRN Reason: Pain, severe (8-10) Last Admin: 02/05/18 08:03 Dose: 1 tab Furosemide (Lasix) 40 mg IV DAILY [facility] Last Admin: 02/05/18 09:48 Dose: 40 mg Heparin Sodium (Porcine) (Heparin) 5,000 units SC Q12 JONATHON PRN Reason: Protocol Last Admin: 02/05/18 09:45 Dose: 5,000 units Home Med (Dutasteride [Avodart]) 0.5 mg PO HS [facility] Insulin Human Lispro (Humalog) 0 units SC ACHS [facility] PRN Reason: Protocol Last Admin: 02/05/18 17:16 Dose: Not Given Lactulose (Enulose) 20 gm PO BID [facility] Last Admin: 02/05/18 17:09 Dose: Not Given Lisinopril (Zestril) 10 mg PO DAILY [facility] Metoprolol Succinate (Toprol Xl) 25 mg PO DAILY [facility] - Labs Labs: 02/04/18 16:35 02/04/18 16:35 PT 11.4 Seconds (9.8-13.1) 02/04/18 16:35 INR 1.0 (0.9-1.2) 02/04/18 16:35 APTT 36.2 Seconds (25.6-37.1) 02/04/18 16:35 - Constitutional Appears: Well, No Acute Distress - Head Exam Head Exam: ATRAUMATIC - Respiratory Exam Respiratory Exam: Rales (b/l bibasilar), NORMAL BREATHING PATTERN - Cardiovascular Exam Cardiovascular Exam: REGULAR RHYTHM, +S1, +S2 - GI/Abdominal Exam GI & Abdominal Exam: Soft, Normal Bowel Sounds - Extremities Exam Extremities Exam: Pedal Edema - Neurological Exam Neurological Exam: Alert, Awake, Oriented x3 - Psychiatric Exam Psychiatric exam: Normal Affect, Normal Mood - Skin Skin Exam: Normal Color, Warm Assessment and Plan (1) New onset of congestive heart failure Assessment & Plan: Continue Lasix Troponins negative F/u echo Cardiology consult O2 via NC as needed continue rest of treatment Monitor labs Status: Acute (2) Hypertension Assessment & Plan: on cardiac medications Status: Chronic (3) Diabetes mellitus Assessment & Plan: on medications Status: Chronic
[2018-02-06] MEDS: Insulin Lispro (humaLOG) 100 Units/ml Inj SC SCH ×5 (07:04→22:13)
--- NOTE | 2018-02-06 08:04 | CARD ---
APPROVED REPORT EKG Measurement Heart [id number] <Conclusion> Normal sinus rhythm Possible Left atrial enlargement Left axis deviation Incomplete right bundle branch block Left ventricular hypertrophy Abnormal ECG
[2018-02-06] MEDS: Metoprolol Succinate 25 mg XL Tab PO SCH (13:09)
--- NOTE | 2018-02-06 13:27 | CARD ---
APPROVED REPORT EKG Measurement Heart [id number] [place] 202P50 [id number] <Conclusion> Normal sinus rhythm Possible Left atrial enlargement Incomplete right bundle branch block Left anterior fascicular block Left ventricular hypertrophy Abnormal ECG
--- NOTE | 2018-02-06 13:35 | CARD ---
APPROVED REPORT EKG Measurement Heart [id number] 206P45 [id number] <Conclusion> Sinus rhythm with premature supraventricular complexes Possible Left atrial enlargement Incomplete right bundle branch block Left anterior fascicular block Left ventricular hypertrophy Abnormal ECG
[2018-02-06 13:48] LABS: HEMOGLOBIN 14.2 g/dL (12.0-18.0); MEAN CORPUSCULAR HEMOGLOBIN 29.1 pg (27.0-31.0); MEAN CORPUSCULAR HGB CONC 33.5 g/dL (33.0-37.0); RBC 4.87 Mil/uL (4.40-5.90); RED CELL DISTRIBUTION WIDTH 15.5 % (11.5-14.5); WHITE BLOOD COUNT 9.3 K/uL (4.8-10.8)
[2018-02-06 13:59] LABS: BLOOD UREA NITROGEN 15 mg/dl (9-20); CALCIUM 9.6 mg/dL (8.4-10.2); GFR AFRICAN-AMERICAN > 60; GFR NON-AFRICAN AMERICAN > 60
--- NOTE | 2018-02-06 16:00 | CP.PCM.CON ---
History of Present Illness - History of Present Illness History of Present Illness: 82 Y/O MALE ADMITTED WITH WEAKNESS AND DYSPNEA FOR SEVERAL DAYS. PT DENIES CP, ORTHOPNEA, PND. ADMITS TO RLE EDEMA. NO RECENT TRAVEL OR LE TRAUMA. D DIMER WAS POSITIVE. ECHO SHOWS INSUFFICIENT TR JET FOR PAP EVAL, HOWEVER THERE IS SYSTOLIC D SHAPED IVS WHICH IS C/W ELEVATED RVSP. BP NORMAL, HR NORMAL. NO HYPOXIA. Review of Systems - Constitutional Constitutional: As Per HPI, Fatigue, Weakness. absent: Anorexia, Chills, Daytime Sleepiness, Excessive Sweating, Fever, Frequent Falls, Headache, Increased Appetite, Lethargy, Malaise, Night Sweats, Snoring, Sleep Apnea, Weight Gain, Weight Loss, Other - EENT Eyes: As Per HPI. absent: Blind Spots, Blurred Vision, Change in Vision, Decreased Night Vision, Diplopia, Discharge, Dry Eye, Exophthalmos, Floaters, Irritation, Itchy Eyes, Loss of Peripheral Vision, Pain, Photophobia, Requires Corrective Lenses, Sees Flashes, Spots in Vision, Tunnel Vision, Other Visual Disturbances, Loss of Vision, Other Ears: As Per HPI. absent: Decreased Hearing, Ear Discharge, Ear Pain, Tinnitus , Abnormal Hearing, Disequilibrium, Dizziness, Other Nose/Mouth/Throat: As Per HPI. absent: Epistaxis, Nasal Congestion, Nasal Discharge, Nasal Obstruction, Nasal Trauma, Nose Pain, Post Nasal Drip, Sinus Pain, Sinus Pressure, Bleeding Gums, Change in Voice, Dental Pain, Dry Mouth, Dysphagia, Halitosis, Hoarsness, Lip Swelling, Mouth Lesions, Mouth Pain, Odynophagia, Sore Throat, Throat Swelling, Tongue Swelling, Facial Pain, Neck Pain, Neck Mass, Other - Cardiovascular Cardiovascular: As Per HPI, Dyspnea, Dyspnea on Exertion, Leg Edema. absent: Acrocyanosis, Chest Pain, Chest Pain at Rest, Chest Pain with Activity, Claudication, Diaphoresis, Edema, Irregular Heart Rhythm, Pain Radiating to Arm/ Neck/Jaw, Leg Ulcers, Lightheadedness, Orthopnea, Palpitations, Paroxysmal Nocturnal Dyspnea, Pedal Edema, Radiating Pain, Rapid Heart Rate, Slow Heart Rate, Syncope, Other - Respiratory Respiratory: As Per HPI. absent: Cough, Dyspnea, Hemoptysis, Dyspnea on Exertion, Wheezing, Snoring, Stridor, Pain on Inspiration, Chest Congestion, Excessive Mucous Production, Change in Mucous Color, Pain with Coughing, Other - Gastrointestinal Gastrointestinal: As Per HPI. absent: Abdominal Pain, Belching, Bloating, Change in Bowel Habits, Change in Stool Character, Coffee Ground Emesis, Constipation, Cramping, Diarrhea, Dyspepsia, Dysphagia, Early Satiety, Excessive Flatus, Fecal Incontinence, Heartburn, Hematemesis, Hematochezia, Loose Stools, Melena, Nausea, Odynophagia, Temesmus, Vomiting, Other - Genitourinary Genitourinary: As Per HPI, Dysuria, Flank Pain, Urinary Frequency. absent: Change in Urinary Stream, Difficulty Urinating, Hematuria, Pyuria, Nocturia, Urinary Incontinence, Urinary Hesitance, Urinary Urgency, Voiding Freq/Small Amts, Freq UTI, Hx Renal/Bladder Calculi, Hx /Renal Surgery, Bladder Distension, Other - Reproductive: Male Reproductive:Male: As Per HPI - Musculoskeletal Musculoskeletal: As Per HPI. absent: Abnormal Gait, Arthralgias, Atrophy, Back Pain, Deformity, Joint Swelling, Limited Range of Motion, Loss of Height, Muscle Cramps, Muscle Weakness, Myalgias, Neck Pain, Numbness, Radiating Pain into Limb, Stiffness, Tingling, Other - Integumentary Integumentary: As Per HPI. absent: Acne, Alopecia, Bleeding Lesions, Change in Hair, Change in Nails, Change in Pigmentation, Changing Lesions, Dry Skin, Erythema, Furuncle, Hirsutism, Lesions, New Lesions, Non-Healing Lesions, Photosensitivity, Pruritus, Rash, Skin Pain, Skin Ulcer, Sores, Striae, Swelling , Unusual Bruising, Wounds, Jaundice, Other - Neurological Neurological: As Per HPI. absent: Abnormal Gait, Abnormal Hearing, Abnormal Movements, Abnormal Speech, Behavioral Changes, Burning Sensations, Confusion, Convulsions, Disequilibrium, Dizziness, Numbness, Focal Weakness, Frequent Falls , Headaches, Lack of Coordination, Loss of Vision, Memory Loss, Paresthesias, Radicular Pain, Restless Legs, Sensory Deficit, Syncope, Tingling, Tremor, Vertigo, Weakness, Other Visual Disturbances, Other - Psychiatric Psychiatric: As Per HPI. absent: Abnormal Sleep Pattern, Anhedonia, Anxiety, Auditory Hallucinations, Behavioral Changes, Change in Appetite, Change in Libido, Confusion, Depression, Difficulty Concentrating, Hallucinations, Homicidal Ideation, Hopelessness, Irritability, Memory Loss, Mood Swings, Panic Attacks, Paranoia, Suicidal Ideation, Visual Hallucinations, Tactile Hallucinations, Other - Endocrine Endocrine: As Per HPI. absent: Change in Body Appearance, Change in Libido, Cold Intolorance, Deepening of Voice, Excessive Sweating, Fatigue, Flushing, Heat Intolorance, Increase in Ring/Shoe/Hat Size, Palpitations, Polydipsia, Polyphagia, Polyuria, Other - Hematologic/Lymphatic Hematologic: As Per HPI. absent: Easy Bleeding, Easy Bruising, Lymphadenopathy , Other Past Patient History - Infectious Disease Hx of Infectious Diseases: None - Past Medical History & Family History Past Medical History?: Yes - Past Social History Smoking Status: Never Smoked Chewing Tobacco Use: No Cigar Use: No Alcohol: None Drugs: Denies Home Situation {Lives}: With Family - CARDIAC Hx Cardiac Disorders: Yes - PULMONARY Hx Respiratory Disorders: No - NEUROLOGICAL Hx Neurological Disorder: No - HEENT Hx HEENT Problems: No - RENAL Hx Chronic Kidney Disease: No - ENDOCRINE/METABOLIC Hx Endocrine Disorders: Yes - HEMATOLOGICAL/ONCOLOGICAL Hx Blood Disorders: No - INTEGUMENTARY Hx Dermatological Problems: No - MUSCULOSKELETAL/RHEUMATOLOGICAL Hx Arthritis: Yes Hx Falls: No - GASTROINTESTINAL Hx Gastrointestinal Disorders: No - GENITOURINARY/GYNECOLOGICAL Hx Genitourinary Disorders: No - PSYCHIATRIC Hx Psychophysiologic Disorder: No Hx Substance Use: No - SURGICAL HISTORY Hx Surgeries: Yes Hx Cataract Extraction: Yes (bilateral) Other/Comment: Prostatectomy - ANESTHESIA Hx Anesthesia: Yes Hx Anesthesia Reactions: No Hx Malignant Hyperthermia: No Meds Allergies/Adverse Reactions: Allergies Allergy/AdvReac Type Severity Reaction Status Date / Time No Known Allergies Allergy Verified 01/27/17 22:33 - Medications Medications: Current Medications Acetaminophen (Tylenol 325mg Tab) 650 mg PO Q6 PRN PRN Reason: Pain, moderate (4-7) Last Admin: 02/05/18 21:43 Dose: 650 mg Acetaminophen/Codeine Phosphate (Tylenol/Codeine 300 Mg/30 Mg) 1 tab PO Q8 PRN PRN Reason: Pain, severe (8-10) Last Admin: 02/05/18 08:03 Dose: 1 tab Enoxaparin Sodium (Lovenox) 80 mg SC Q12 JONATHON PRN Reason: Protocol Furosemide (Lasix) 40 mg IV DAILY [facility] Last Admin: 02/06/18 13:11 Dose: 40 mg Home Med (Dutasteride [Avodart]) 0.5 mg PO HS [facility] Insulin Human Lispro (Humalog) 0 units SC ACHS [facility] PRN Reason: Protocol Last Admin: 02/06/18 13:14 Dose: 5 unit Lactulose (Enulose) 20 gm PO BID [facility] Last Admin: 02/06/18 13:08 Dose: 20 gm Lisinopril (Zestril) 10 mg PO DAILY [facility] Last Admin: 02/06/18 13:10 Dose: 10 mg Metoprolol Succinate (Toprol Xl) 25 mg PO DAILY [facility] Last Admin: 02/06/18 13:09 Dose: 25 mg Physical Exam - Constitutional Appears: Well - Head Exam Head Exam: ATRAUMATIC, NORMAL INSPECTION, NORMOCEPHALIC - Eye Exam Eye Exam: EOMI, Normal appearance, PERRL. absent: Conjunctival injection, Nystagmus, Periorbital swelling, Periorbital tenderness, Scleral icterus Pupil Exam: NORMAL ACCOMODATION, PERRL. absent: Fixed, Irregular, Miosis, Mydriatic, Unequal - ENT Exam ENT Exam: Mucous Membranes Moist, Normal Exam. absent: Mucous Membranes Dry, Normal External Ear Exam, Normal Oropharynx, TM's Normal Bilaterally - Neck Exam Neck exam: Positive for: Normal Inspection. Negative for: Full Rom, Lymphadenopathy, Meningismus, Tenderness, Thyromegaly - Respiratory Exam Respiratory Exam: Clear to Auscultation Bilateral, NORMAL BREATHING PATTERN. absent: Accessory Muscle Use, Chest Wall Tenderness, Decreased Breath Sounds, Prolonged Expiratory Phase, Rales, Rhonchi, Wheezes, Respiratory Distress, Stridor - Cardiovascular Exam Cardiovascular Exam: REGULAR RHYTHM, +S1, +S2, Systolic Murmur. absent: Bradycardia, Tachycardia, Clicks, Diastolic murmur, Gallop, Irregular Rhythm, JVD, RRR, Rubs, +S4 - GI/Abdominal Exam GI & Abdominal Exam: Normal Bowel Sounds, Soft. absent: Bruit, Diminished Bowel Sounds, Distended, Firm, Guarding, Hernia, Hyperactive Bowel Sounds, Hypoactive Bowel Sounds, Mass, Organomegaly, Pulsatile Mass, Rebound, Rigid, Tenderness - Rectal Exam Rectal Exam: Deferred - Extremities Exam Extremities exam: Positive for: pedal edema. Negative for: calf tenderness, full ROM, joint swelling, normal capillary refill, normal inspection, tenderness , pedal pulses present Additional comments: RLE 1 PLUS EDEMA - Back Exam Back exam: NORMAL INSPECTION. absent: CVA tenderness (L), CVA tenderness (R), FULL ROM, muscle spasm, paraspinal tenderness, rash noted, tenderness, vertebral tenderness - Neurological Exam Neurological exam: Alert, CN II-XII Intact, Normal Gait, Oriented x3, Reflexes Normal - Psychiatric Exam Psychiatric exam: Normal Affect, Normal Mood - Skin Skin Exam: Dry, Intact, Normal Color, Warm Results - Vital Signs Recent Vital Signs: Last Vital Signs Temp 97.8 F 02/06/18 12:29 Pulse 79 02/06/18 13:10 Resp 20 02/06/18 12:29 BP 134/75 02/06/18 13:11 Pulse Ox 93 L 02/06/18 12:29 - Labs Result Diagrams: 02/06/18 12:27 02/06/18 12:27 Labs: Laboratory Results - last 24 hr 02/05/18 02/05/18 02/05/18 16:45 17:00 21:29 WBC RBC Hgb Hct MCV MCH MCHC RDW Plt Count D-Dimer, Quantitative 223 Sodium Potassium Chloride Carbon Dioxide Anion Gap BUN Creatinine Est GFR ( Amer) Est GFR (Non-Af Amer) POC Glucose (mg/dL) 138 H 137 H Random Glucose Calcium 02/06/18 02/06/18 02/06/18 05:54 11:00 12:27 WBC 9.3 RBC 4.87 Hgb 14.2 Hct 42.3 MCV 87.0 MCH 29.1 MCHC 33.5 RDW 15.5 H Plt Count 269 D-Dimer, Quantitative Sodium Potassium Chloride Carbon Dioxide Anion Gap BUN Creatinine Est GFR ( Amer) Est GFR (Non-Af Amer) POC Glucose (mg/dL) 140 H 351 H Random Glucose Calcium 02/06/18 12:27 WBC RBC Hgb Hct MCV MCH MCHC RDW Plt Count D-Dimer, Quantitative Sodium 140 Potassium 4.8 Chloride 96 L Carbon Dioxide 32 H Anion Gap 17 BUN 15 Creatinine 0.9 Est GFR ( Amer) > 60 Est GFR (Non-Af Amer) > 60 POC Glucose (mg/dL) Random Glucose 258 H Calcium 9.6 - EKG Data EKG Interpreted by: Myself EKG shows normal: Sinus rhythm Rate: Normal Assessment & Plan (1) SOB (shortness of breath) Status: Acute (2) D-dimer, elevated Status: Acute (3) Edema extremities Status: Acute (4) Urinary tract infection Status: Acute Priority: High (5) Diabetes mellitus Status: Chronic (6) Hypertension Status: Chronic
[2018-02-06] MEDS ORDERED: Iodixanol 320 MG/ML 100 ML BOTTLE IV ONE (16:49)
--- NOTE | 2018-02-06 16:50 | US ---
PROCEDURE: Bilateral lower extremity venous duplex Doppler. HISTORY: Shortness of breath. COMPARISON: None available. TECHNIQUE: Bilateral common femoral, superficial femoral, popliteal and posterior tibial veins were evaluated. Flow was assessed with color Doppler, compressibility, assessment of phasic flow and augmentation response. FINDINGS: COMMON FEMORAL VEIN: Right CFV: Unremarkable. Left CFV: Unremarkable. SUPERFICIAL FEMORAL VEIN: Right SFV: Unremarkable. Left SFV: Unremarkable. POPLITEAL VEIN: Right Popliteal: Unremarkable. Left Popliteal: Unremarkable. POSTERIOR TIBIAL VEIN: Right PTV: Unremarkable. Left PTV: Unremarkable. OTHER FINDINGS: None. IMPRESSION: No evidence of deep venous thrombosis.
--- NOTE | 2018-02-06 18:27 | CT ---
PROCEDURE: CT Chest with contrast (Pulmonary Angiogram) HISTORY: r/o PE COMPARISON: None available. TECHNIQUE: Axial computed tomography images were obtained of the chest in the pulmonary arterial phase of enhancement. Coronal and sagittal reformatted images were created and reviewed. This CT exam was performed using one or more of the following dose reduction techniques: Automated exposure control, adjustment of the mA and/or kV according to patient size, and/or use of iterative reconstruction technique. IV contrast: 80 cc of Visipaque 320. Mean Hounsfield unit values in the main pulmonary artery: 268.37 Radiation dose (DLP): 432.79 mGy-cm. FINDINGS: PULMONARY ARTERIES: Unremarkable. No pulmonary embolism. AORTA: No acute findings. No thoracic aortic aneurysm. LUNGS: Increased pulmonary parenchymal markings, thickening of interlobular septa may reflect a component CHF. PLEURAL SPACES: Unremarkable. No effusion or pneuomothorax. HEART: Cardiomegaly, of mild CHF/interstitial edema LYMPH NODES: Small (less than 1 cm) mediastinal lymph nodes likely infectious/ inflammatory. BONES, CHEST WALL: Compression deformity T12 vertebral body. Etiology/ acuity unknown. OTHER FINDINGS: Unremarkable. IMPRESSION: Unremarkable CT pulmonary angiogram. No pulmonary embolus. Findings suggestive of mild congestive heart failure.
[2018-02-06] MEDS: Enoxaparin 80 mg Syringe SC SCH (22:13)
--- NOTE | 2018-02-06 22:49 | CP.PCM.PN ---
Subjective - Date & Time of Evaluation Date of Evaluation: 02/06/18 Time of Evaluation: 13:10 - Subjective Subjective: Still has some SOB but feels a little better. Uses O2 on and off. Denies cp, N/V Objective - Vital Signs/Intake and Output Vital Signs (last 24 hours): Temp Pulse Resp BP Pulse Ox 97.4 F L 68 20 130/76 100 02/06/18 20:16 02/06/18 20:16 02/06/18 20:16 02/06/18 20:16 02/06/18 20:16 - Medications Medications: Current Medications Acetaminophen (Tylenol 325mg Tab) 650 mg PO Q6 PRN PRN Reason: Pain, moderate (4-7) Last Admin: 02/06/18 17:45 Dose: 650 mg Acetaminophen/Codeine Phosphate (Tylenol/Codeine 300 Mg/30 Mg) 1 tab PO Q8 PRN PRN Reason: Pain, severe (8-10) Last Admin: 02/05/18 08:03 Dose: 1 tab Enoxaparin Sodium (Lovenox) 80 mg SC Q12 JONATHON PRN Reason: Protocol Last Admin: 02/06/18 22:13 Dose: 80 mg Furosemide (Lasix) 40 mg IV DAILY [facility] Last Admin: 02/06/18 13:11 Dose: 40 mg Home Med (Dutasteride [Avodart]) 0.5 mg PO HS [facility] Insulin Human Lispro (Humalog) 0 units SC ACHS JONATHON PRN Reason: Protocol Last Admin: 02/06/18 22:13 Dose: Not Given Lactulose (Enulose) 20 gm PO BID [facility] Last Admin: 02/06/18 17:41 Dose: Not Given Lisinopril (Zestril) 10 mg PO DAILY [facility] Last Admin: 02/06/18 13:10 Dose: 10 mg Metoprolol Succinate (Toprol Xl) 25 mg PO DAILY [facility] Last Admin: 02/06/18 13:09 Dose: 25 mg - Labs Labs: 02/06/18 12:27 02/06/18 12:27 PT 11.4 Seconds (9.8-13.1) 02/04/18 16:35 INR 1.0 (0.9-1.2) 02/04/18 16:35 APTT 36.2 Seconds (25.6-37.1) 02/04/18 16:35 - Constitutional Appears: Well, No Acute Distress - Head Exam Head Exam: ATRAUMATIC, NORMOCEPHALIC - Respiratory Exam Respiratory Exam: Rales (scattered) - Cardiovascular Exam Cardiovascular Exam: REGULAR RHYTHM, +S1, +S2 - GI/Abdominal Exam GI & Abdominal Exam: Soft, Normal Bowel Sounds - Neurological Exam Neurological Exam: Alert, CN II-XII Intact, Oriented x3 - Psychiatric Exam Psychiatric exam: Normal Affect, Normal Mood - Skin Skin Exam: Normal Color, Warm Assessment and Plan (1) New onset of congestive heart failure Assessment & Plan: Continue Lasix Troponins negative F/u echo Cardiology consult O2 via NC as needed CT chest LE dopplers negative DVT continue rest of treatment Monitor labs Status: Acute (2) Hypertension Assessment & Plan: continue medications Status: Chronic (3) Diabetes mellitus Assessment & Plan: Insulin sliding scale Status: Chronic
[2018-02-07 05:06] VITALS: RESP 18
--- NOTE | 2018-02-07 07:34 | CARD ---
APPROVED REPORT EXAM: Two-dimensional and M-mode echocardiogram with Doppler and color Doppler. Other Information Quality : GoodRhythm : NSR INDICATION Congestive Heart Failure 2D DIMENSIONS IVSd1.00 (0.7-1.1cm)LVDd4.54 (3.9-5.9cm) LVOT Diameter1.95 (1.8-2.4cm)PWd1.02 (0.7-1.1cm) IVSs1.45 (0.8-1.2cm)LVDs2.20 (2.5-4.0cm) FS (%) 51.5 %PWs1.35 (0.8-1.2cm) M-Mode DIMENSIONS Left Atrium (MM)3.69 (2.5-4.0cm)IVSd1.56 (0.7-1.1cm) Aortic Root3.47 (2.2-3.7cm)LVDd3.78 (4.0-5.6cm) Aortic Cusp Exc.1.78 (1.5-2.0cm)PWd1.19 (0.7-1.1cm) IVSs1.75 cmFS (%) 55 % LVDs1.72 (2.0-3.8cm)PWs1.50 cm Mitral Valve MV E Qwjnjieq02.6cm/sMV DECEL [id number] A Bxhsnwdr614.7cm/s MV BJO45paE/A ratio0.5MVA (PHT)2.26cm2 TDI Lateral E' Peak V4.56cm/sMedial E' Peak V4.48cm/sE/Lateral E'17.0 E/Medial E'17.3 Pulmonary Valve PV Peak Auxvzyik35.0cm/s LEFT VENTRICLE The left ventricle is normal size. There is moderate concentric left ventricular hypertrophy. Left ventricle systolic function is normal. The Ejection Fraction is >70%. There is normal LV segmental wall motion. Transmitral Doppler flow pattern is Grade I-abnormal relaxation pattern. RIGHT VENTRICLE The right ventricle is normal size. There is normal right ventricular wall thickness. The right ventricular systolic function is normal. ATRIA The left atrium is moderately dilated. The right atrium size is normal. AORTIC VALVE The aortic valve is mildly sclerotic. No aortic regurgitation is present. There is no aortic valvular stenosis. MITRAL VALVE Mitral annular calcification is mild to moderate. There is no evidence of mitral valve prolapse. There is no mitral valve stenosis. There is no mitral valve regurgitation noted. TRICUSPID VALVE The tricuspid valve is normal in structure. There is no tricuspid valve regurgitation noted. PULMONIC VALVE The pulmonic valve is not well visualized. There is no pulmonic valvular regurgitation. GREAT VESSELS The aortic root is normal in size. The IVC is normal in size and collapses >50% with inspiration. PERICARDIAL EFFUSION The pericardium appears normal. <Conclusion> The left ventricle is normal size. There is moderate concentric left ventricular hypertrophy. There is normal LV segmental wall motion. Left ventricle systolic function is normal. The Ejection Fraction is >70%. Transmitral Doppler flow pattern is Grade I-abnormal relaxation pattern. The left atrium is moderately dilated.
[2018-02-07] MEDS: Enoxaparin 80 mg Syringe SC SCH (08:25)
[2018-02-07] MEDS: Metoprolol Succinate 25 mg XL Tab PO SCH (08:39)
[2018-02-07] MEDS: Insulin Lispro (humaLOG) 100 Units/ml Inj SC SCH ×2 (08:41→12:22)
[2018-02-07] MEDS ORDERED: Lidocaine 5% Patch TD SCH (09:00)
[2018-02-07] MEDS ORDERED: Enoxaparin 40 mg Syringe SC SCH (09:00)
--- NOTE | 2018-02-07 10:38 | CP.PCM.PCO ---
Assessment & Plan - Assessment and Plan (Free Text) Assessment: pt sitting up in bed with son at bedside- denies sob, orthopnea, LE swelling, cp , or fever chills CTA neg for PE LE Dopplers neg for DVT echo EF 75 % pt. on Metoprolol succinate, EMILIE, Lasix start metformin 500 po daily pt. to f/u with PMD in 1 week cleared for d/c by
--- NOTE | 2018-02-07 10:41 | IP.NPCORE ---
Heart Failure Core Measure - Heart Failure Ejection Fraction: 40 % or Greater EMILIE Inhibitor Prescribed: Yes Beta-Maria Guadalupe Prescribed: Metoprolol Succinate (75% Echo) - Follow up Will be discharged to: Home
[2018-02-07 12:01] VITALS: BP 128/73; PULSE 64; TEMP 97.4; O2SAT 94
--- NOTE | 2018-02-07 12:13 | CARD ---
APPROVED REPORT EKG Measurement Heart [id number] <Conclusion> Normal sinus rhythm Possible Left atrial enlargement Left axis deviation Incomplete right bundle branch block Left ventricular hypertrophy Abnormal ECG
--- NOTE | 2018-02-07 19:00 | CP.PCM.DIS ---
Provider - Provider Date of Admission: 02/05/18 11:35 Attending physician: Michel Reece MD Time Spent in preparation of Discharge (in minutes): 30 Diagnosis - Discharge Diagnosis (1) New onset of congestive heart failure Status: Acute Priority: High (2) Hypertension Status: Chronic Priority: High (3) Diabetes mellitus Status: Chronic Priority: Low Hospital Course - Lab Results Lab Results: Micro Results 02/04/18 16:35 Blood-Venous Blood Culture - Preliminary NO GROWTH AFTER 3 DAYS 02/04/18 18:45 Blood-Venous Blood Culture - Preliminary NO GROWTH AFTER 48 HOURS 02/04/18 18:45 Urine,Clean Catch Urine Culture - Final No Growth (<1,000 CFU/ML) Most Recent Lab Values WBC 9.3 K/uL (4.8-10.8) 02/06/18 12:27 RBC 4.87 Mil/uL (4.40-5.90) 02/06/18 12:27 Hgb 14.2 g/dL (12.0-18.0) 02/06/18 12:27 Hct 42.3 % (35.0-51.0) 02/06/18 12:27 MCV 87.0 fl (80.0-94.0) 02/06/18 12:27 MCH 29.1 pg (27.0-31.0) 02/06/18 12:27 MCHC 33.5 g/dL (33.0-37.0) 02/06/18 12:27 RDW 15.5 % (11.5-14.5) H 02/06/18 12:27 Plt Count 269 K/uL (130-400) 02/06/18 12:27 MPV 8.5 fl (7.2-11.7) 02/04/18 16:35 Neut % (Auto) 63.5 % (50.0-75.0) 02/04/18 16:35 Lymph % (Auto) 26.6 % (20.0-40.0) 02/04/18 16:35 [place] % (Auto) 7.6 % (0.0-10.0) 02/04/18 16:35 Eos % (Auto) 1.5 % (0.0-4.0) 02/04/18 16:35 Baso % (Auto) 0.8 % (0.0-2.0) 02/04/18 16:35 Neut # (Auto) 5.7 K/uL (1.8-7.0) 02/04/18 16:35 Lymph # (Auto) 2.4 K/uL (1.0-4.3) 02/04/18 16:35 Stoddard # (Auto) 0.7 K/uL (0.0-0.8) 02/04/18 16:35 Eos # (Auto) 0.1 K/uL (0.0-0.7) 02/04/18 16:35 Baso # (Auto) 0.1 K/uL (0.0-0.2) 02/04/18 16:35 PT 11.4 Seconds (9.8-13.1) 02/04/18 16:35 INR 1.0 (0.9-1.2) 02/04/18 16:35 APTT 36.2 Seconds (25.6-37.1) 02/04/18 16:35 D-Dimer, Quantitative 223 ng/mlDDU (0-230) 02/05/18 17:00 pO2 28 mm/Hg (30-55) L 02/04/18 16:35 VBG pH 7.40 (7.32-7.43) 02/04/18 16:35 VBG pCO2 54 mmHg (40-60) 02/04/18 16:35 VBG HCO3 29.2 mmol/L 02/04/18 16:35 VBG Total CO2 35.1 mmol/L (22-28) H 02/04/18 16:35 VBG O2 Sat (Calc) 51.9 % (40-65) 02/04/18 16:35 VBG Base Excess 7.0 mmol/L (0.0-2.0) H 02/04/18 16:35 VBG Potassium 4.0 mmol/L (3.6-5.2) 02/04/18 16:35 Sodium 136.0 mmol/L (132-148) 02/04/18 16:35 Chloride 100.0 mmol/L (98-107) 02/04/18 16:35 Glucose 186 mg/dL (75-110) H 02/04/18 16:35 Lactate 1.6 mmol/L (0.7-2.1) 02/04/18 16:35 FiO2 21.0 % 02/04/18 16:35 Sodium 140 mmol/l (132-148) 02/06/18 12:27 Potassium 4.8 MMOL/L (3.6-5.0) 02/06/18 12:27 Chloride 96 mmol/L (98-107) L 02/06/18 12:27 Carbon Dioxide 32 mmol/L (22-30) H 02/06/18 12:27 Anion Gap 17 (10-20) 02/06/18 12:27 BUN 15 mg/dl (9-20) 02/06/18 12:27 Creatinine 0.9 mg/dl (0.8-1.5) 02/06/18 12:27 Est GFR ( Amer) > 60 02/06/18 12:27 Est GFR (Non-Af Amer) > 60 02/06/18 12:27 POC Glucose (mg/dL) 184 mg/dL (65-110) H 02/07/18 10:40 Random Glucose 258 mg/dL (75-110) H 02/06/18 12:27 Calcium 9.6 mg/dL (8.4-10.2) 02/06/18 12:27 Phosphorus 4.4 mg/dl (2.5-4.5) 02/04/18 16:35 Magnesium 1.9 MG/DL (1.6-2.3) 02/04/18 16:35 Total Bilirubin 0.5 mg/dl (0.2-1.3) 02/04/18 16:35 AST 26 U/L (17-59) 02/04/18 16:35 ALT 33 U/L (21-72) 02/04/18 16:35 Alkaline Phosphatase 149 U/L (38-126) H 02/04/18 16:35 Troponin I < 0.0120 ng/mL (0.00-0.120) 02/05/18 08:55 NT-Pro-B Natriuret Pep 435 pg/ml (0-900) 02/04/18 16:35 Total Protein 8.6 G/DL (6.3-8.2) H 02/04/18 16:35 Albumin 3.9 g/dL (3.5-5.0) 02/04/18 16:35 Globulin 4.7 gm/dL (2.2-3.9) H 02/04/18 16:35 Albumin/Globulin Ratio 0.8 (1.0-2.1) L 02/04/18 16:35 Lipase 62 U/L (23-300) 02/04/18 16:35 TSH 3rd Generation 1.73 mIU/ML (0.46-4.68) 02/04/18 16:35 Venous Blood Potassium 4.0 mmol/L (3.6-5.2) 02/04/18 16:35 Urine Color Straw (YELLOW) 02/04/18 18:45 Urine Clarity Clear (Clear) 02/04/18 18:45 Urine pH 7.0 (5.0-8.0) 02/04/18 18:45 Ur Specific [place] 1.006 (1.003-1.030) 02/04/18 18:45 Urine Protein 30 mg/dL (NEGATIVE) 02/04/18 18:45 Urine Glucose (UA) Neg mg/dL (Normal) 02/04/18 18:45 Urine Ketones Negative mg/dL (NEGATIVE) 02/04/18 18:45 Urine Blood Negative (NEGATIVE) 02/04/18 18:45 Urine Nitrate Negative (NEGATIVE) 02/04/18 18:45 Urine Bilirubin Negative (NEGATIVE) 02/04/18 18:45 Urine Urobilinogen 0.2-1.0 mg/dL (0.2-1.0) 02/04/18 18:45 Ur Leukocyte Esterase Trace Lillie/uL (Negative) 02/04/18 18:45 Urine RBC (Auto) < 1 /hpf (0-3) 02/04/18 18:45 Urine Microscopic WBC 1 /hpf (0-5) 02/04/18 18:45 Urine Bacteria Rare (<OCC) 02/04/18 18:45 Influenza Typ A,B (EIA) Negative for flu a/b (NEGATIVE) 02/04/18 16:35 Blood Type B POSITIVE 02/04/18 16:35 Antibody Screen Negative 02/04/18 16:35 BBK History Checked Patient has bt 02/04/18 16:35 Discharge Exam - Head Exam Head Exam: ATRAUMATIC, NORMOCEPHALIC Discharge Plan - Discharge Medications Prescriptions: metFORMIN [glucOPHAGE] 500 mg PO DAILY #14 tab Furosemide [Lasix] 40 mg PO DAILY #30 tablet Lidocaine 5% [Lidoderm] 1 ea TD DAILY #14 patch Metoprolol Succinate [Toprol XL] 25 mg PO DAILY #30 tab Lisinopril [Zestril] 10 mg PO DAILY #30 tab - Follow Up Plan Condition: GUARDED Disposition: HOME/ ROUTINE Instructions: Heart Failure, Adult (DC) Additional Instructions: pt sitting up in bed with son at bedside- denies sob, orthopnea, LE swelling, cp , or fever chills CTA neg for PE LE Dopplers neg for DVT echo EF 75 % pt. on Metoprolol succinate, EMILIE, Lasix start metformin 500 po daily pt. to f/u with PMD in 1 week cleared for d/c by follow up appt with on tuesday02/15/18 at 4:00pm Referrals: Michel Reece MD [Staff Provider] -
== END 2018-02-07 13:25 | disposition home or self-care (01) | DRG 127 ==
LOC: H.ER 15:04 → H.ERHOLD 18:42 → OBSVTOIN 02-05 11:35 → H.TEL 02-05 14:35
PROVIDERS: ADMIT Internal Medicine; ATTEND Internal Medicine
DX: I11.0 Hypertensive heart disease with heart failure (principal); N39.0 Urinary tract infection, site not specified; I50.9 Heart failure, unspecified; E11.9 Type 2 diabetes mellitus without complications; Z16.12 Extended spectrum beta lactamase (ESBL) resistance; M19.90 Unspecified osteoarthritis, unspecified site; Z87.81 Personal history of (healed) traumatic fracture